=== PATIENT | female | born 1980 | race African-American/Black ===

== ENCOUNTER 2017-06-19 17:12 | Emergency (ER) | payer SELFPAY ==
--- NOTE | 2017-06-19 17:48 | EDPHYS ---
Physician Documentation [facility] Name: Peng Preciado Age: 36 yrs Sex: Female : 1980 Arrival Date: 06/19/2017 Time: 17:15 Bed 20 Private MD: ED Physician Shay Saldaña HPI: 06/19 18:00 This 36 yrs old Black Female presents to ER via Ambulatory with complaints of Insect pm1 Bite. 18:00 The patient presents with an abscess of the lateral aspect of right calf and lateral pm1 aspect of left calf. Description: raised. Onset: The symptoms/episode began/occurred 3 day(s) ago. Possible cause(s): insect sting. Associated signs and symptoms: Associated signs and symptoms: Pertinent negatives: fever. Severity of symptoms: in the emergency department the symptoms have improved. Patient with abscess to right lateral aspect of calf that has improved. Improved with compress and expressing drainage from wound. Left lateral aspect of calf abscess that appeared this AM. No drainage or surrounding redness. Patient suspects possible insect bite. 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 - Social history:: Smoking status: Patient/guardian denies using tobacco. ROS: 18:00 Constitutional: Negative for fever, chills, and weight loss, Eyes: Negative for injury, pm1 pain, redness, and discharge, Neck: Negative for injury, pain, and swelling, Cardiovascular: Negative for chest pain, palpitations, and edema, Respiratory: Negative for shortness of breath, cough, wheezing, and pleuritic chest pain, Abdomen/GI: Negative for abdominal pain, nausea, vomiting, diarrhea, and constipation, Back: Negative for injury and pain, MS/Extremity: Negative for injury and deformity. 18:00 Neuro: Negative for headache, weakness, numbness, tingling, and seizure. 18:00 ENT: Positive for dental pain, Negative for sore throat, difficulty swallowing, difficulty handling secretions. 18:00 Skin: Positive for abscess, of the lateral aspect of right calf and lateral aspect of left calf. Exam: 18:00 Constitutional: This is a well developed, well nourished patient who is awake, alert, pm1 and in no acute distress. Head/Face: Normocephalic, atraumatic. Eyes: Pupils equal round and reactive to light, extra-ocular motions intact. Lids and lashes normal. Conjunctiva and sclera are non-icteric and not injected. Cornea within normal limits. Periorbital areas with no swelling, redness, or edema. 18:00 Neck: Trachea midline, no thyromegaly or masses palpated, and no cervical lymphadenopathy. Supple, full range of motion without nuchal rigidity, or vertebral point tenderness. No Meningismus. Chest/axilla: Normal chest wall appearance and motion. Nontender with no deformity. No lesions are appreciated. Cardiovascular: Regular rate and rhythm with a normal S1 and S2. No gallops, murmurs, or rubs. Normal PMI, no JVD. No pulse deficits. Respiratory: Lungs have equal breath sounds bilaterally, clear to auscultation and percussion. No rales, rhonchi or wheezes noted. No increased work of breathing, no retractions or nasal flaring. Abdomen/GI: Soft, non-tender, with normal bowel sounds. No distension or tympany. No guarding or rebound. No evidence of tenderness throughout. Back: No spinal tenderness. No costovertebral tenderness. Full range of motion. 18:00 ENT: External ear(s): are unremarkable, Ear canal(s): are normal, TM's: are normal, Nose: is normal, Mouth: is normal, Lips: normal, Oral mucosa: normal, Gums: normal with healthy appearance, Posterior pharynx: is normal, Airway: normal, no evidence of obstruction, patent, Dental exam: dental caries, that is moderate, diffusely, gum swelling, not appreciated, missing teeth, diffusely. 18:00 Skin: abscess, that is small, of the lateral aspect of left calf and lateral aspect of right calf, no drainage, fluctuance pointing, or surrounding cellulits, cellulitis, is not appreciated. Vital Signs: 17:18 BP 132 / 88; Pulse 86; Resp 16; Temp 98.4; Pulse Ox 100% on R/A; Weight 90.72 kg; aj Height 5 ft. 9 in. (175.26 cm); Pain 8/10; 17:18 Body Mass Index 29.53 (90.72 kg, 175.26 cm) manfred MDM: 17:27 Patient medically screened. pm1 17:47 Data reviewed: vital signs. Data interpreted: Pulse oximetry: on room air is 100 %. pm1 Interpretation: normal. Counseling: I had a detailed discussion with the patient and/or guardian regarding: the historical points, exam findings, and any diagnostic results supporting the discharge/admit diagnosis, the need for outpatient follow up, to return to the emergency department if symptoms worsen or persist or if there are any questions or concerns that arise at home. 17:49 ED course: patient with right lower dental pain. Patient pending evaluation and pm1 treatment with dentist. Will provide antibiotic with coverage of dental issue and lower extremity abscesses. 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 Exp: lk1 07/11/2019. Lot #: [id number]. } Route: IM; Site: right deltoid; 18:05 Follow up: Response: No adverse reaction lk1 Disposition: 19:14 Co-signature as Attending Physician, Shay Saldaña MD I agree with the assessment and guille plan of care. Disposition: 06/19/17 17:48 Discharged to Home. Impression: Cutaneous abscess of left lower limb, Cutaneous abscess of right lower limb. - Condition is Stable. - Discharge Instructions: Abscess, Dental Pain. - Prescriptions for Clindamycin HCl 300 mg Oral Capsule - take 1 capsule by ORAL route every 6 hours for 10 days; 40 capsule. Tylenol- Codeine #3 300-30 mg Oral Tablet - take 2 tablets by ORAL route every 6 hours As needed; 20 tablet. - Medication Reconciliation Form, Thank You Letter, Antibiotic Education, Prescription Opioid Use form. - Follow up: Emergency Department; When: As needed; Reason: Worsening of condition. Follow up: Private Physician; When: 2 - 3 days; Reason: Wound Recheck, Recheck today's complaints, Continuance of care, Re-evaluation by your physician. - Problem is new. - Symptoms have improved. Signatures: Nova Vargas RN RN aj Anderson, Corey, MD MD cha Kluge, Leah, RN RN lk1 Mickey Worthington, SECURITY TECHNICIAN SECURITY TECHNICIAN pm1
--- NOTE | 2017-06-19 17:48 | ER ---
Nurse's Notes [facility] Name: Peng Preciado Age: 36 yrs Sex: Female : 1980 Arrival Date: 06/19/2017 Time: 17:15 Bed 20 Private MD: Diagnosis: Cutaneous abscess of left lower limb;Cutaneous abscess of right lower limb Presentation: 06/19 17:16 Presenting complaint: Patient states: Abscesses to bilateral lower legs for 3 days. aj Drainage reported to abscess on right lower leg. Redness with no drainage to left lower leg. Transition of care: patient was not received from another setting of care. Onset of symptoms was June 16, 2017. Initial Sepsis Screen: Does the patient meet any 2 criteria? No. Patient's initial sepsis screen is negative. Does the patient have a suspected source of infection? No. Patient's initial sepsis screen is negative. Care prior to arrival: None. 17:16 Method Of Arrival: Ambulatory 17:16 Acuity: SIMONE 4 aj Triage Assessment: 17:18 Bite description: bite. General: Appears in no apparent distress. Behavior is calm, aj cooperative, appropriate for age. Pain: Complains of pain in right ankle and lateral aspect of left calf Pain currently is 8 out of 10 on a pain scale. Neuro: Level of Consciousness is awake, alert, obeys commands, Oriented to person, place, time, situation. Respiratory: Airway is patent Respiratory effort is even, unlabored, Respiratory pattern is regular, symmetrical. Derm: Skin is intact, is healthy with good turgor, Skin is pink, warm \T\ dry. normal. Derm: Abscess located on right ankle and lateral aspect of left calf is dime sized, has purulent drainage, has no drainage. 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 - Social history:: Smoking status: Patient/guardian denies using tobacco. Screenin:10 Abuse screen: Denies threats or abuse. Denies injuries from another. Nutritional lk1 screening: No deficits noted. Tuberculosis screening: No symptoms or risk factors identified. Fall Risk None identified. Assessment: 17:30 General: Appears in no apparent distress. Pain: Complains of pain in right leg and left lk1 leg. Neuro: Level of Consciousness is awake, alert, obeys commands, Oriented to person, place, time, situation. Cardiovascular: Capillary refill is brisk. Respiratory: Airway is patent Respiratory effort is even, unlabored, Respiratory pattern is regular, symmetrical. GI: Abdomen is obese. : No signs and/or symptoms were reported regarding the genitourinary system. EENT: No signs and/or symptoms were reported regarding the EENT system. Derm: Wound noted right calf Wound is open abscess, draining minimally, approximately 1cm, surrounded by dry skin. Musculoskeletal: No signs and/or symptoms reported regarding the musculoskeletal system. Vital Signs: 17:18 BP 132 / 88; Pulse 86; Resp 16; Temp 98.4; Pulse Ox 100% on R/A; Weight 90.72 kg; aj Height 5 ft. 9 in. (175.26 cm); Pain 8/10; 17:18 Body Mass Index 29.53 (90.72 kg, 175.26 cm) aj ED Course: 17:15 Patient arrived in ED. mr 17:18 Triage completed. aj 17:18 Arm band placed on left wrist. Patient placed in an exam room. aj 17:21 Mickey Worthington NP is PHCP. pm1 17:21 Shay Saldaña MD is Attending Physician. pm1 17:51 Anila Stewart, VIRGIE is Primary Nurse. lk1 18:11 Patient has correct armband on for positive identification. Bed in low position. Call lk1 light in reach. 18:11 No provider procedures requiring assistance completed. Patient did not have IV access lk1 during this emergency room visit. 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 Exp: lk1 07/11/2019. Lot #: [id number]. } Route: IM; Site: right deltoid; 18:05 Follow up: Response: No adverse reaction lk1 Outcome: 17:48 Discharge ordered by . pm1 18:11 Discharged to home ambulatory. lk1 18:11 Condition: good 18:11 Discharge instructions given to patient, Instructed on discharge instructions, follow up and referral plans. medication usage, safety practices, wound care, Demonstrated understanding of instructions, follow-up care, medications, wound care, Prescriptions given X 2. 18:13 Patient left the ED. lk1 Signatures: Nova Vargas RN RN aj Rivera, Maria mr Kluge, Leah, RN RN lk1 Mickey Worthington, PROJECT MANAGEMENT ADVISOR PROJECT MANAGEMENT ADVISOR pm1
[2017-06-19] MEDS ORDERED: TETANUS & DIPHTHERIA TOX,ADULT 0.5 ML VIAL ONE (17:54)
[2017-06-19 18:16] VITALS: BP 132/88; TEMP 98.4; O2SAT 100
== END 2017-06-19 18:13 | disposition home or self-care (01) ==
LOC: ER 17:12
DX: L02.415 Cutaneous abscess of right lower limb (principal); I10 Essential (primary) hypertension; Z23 Encounter for immunization
CPT/HCPCS: 90714; 99283

== ENCOUNTER 2017-10-13 01:59 | Emergency (ER) | payer SELFPAY ==
--- NOTE | 2017-10-13 02:26 | EDPHYS ---
Physician Documentation [facility] Name: Peng Preciado Age: 37 yrs Sex: Female : 1980 Arrival Date: 10/13/2017 Time: 02:11 Bed 2 Private MD: ED Physician Nasim Lipscomb HPI: 10/13 02:20 This 37 yrs old Black Female presents to ER via EMS with complaints of UTI. gs 02:20 The patient presents with urinary symptoms, dysuria. Onset: The symptoms/episode gs began/occurred suddenly, 1 week(s) ago. Modifying factors: The symptoms are alleviated by nothing, the symptoms are aggravated by nothing. Associated signs and symptoms: Pertinent negatives: fever. Severity of symptoms: At their worst the symptoms were moderate, in the emergency department the symptoms are unchanged. The patient has experienced similar episodes in the past, a few times. 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 - Social history:: Smoking status: Patient/guardian denies using tobacco. - Ebola Screening: : No symptoms or risks identified at this time. ROS: 02:20 All other systems are negative. gs Exam: 02:20 ENT: Nares patent. No nasal discharge, no septal abnormalities noted. Tympanic gs membranes are normal and external auditory canals are clear. Oropharynx with no redness, swelling, or masses, exudates, or evidence of obstruction, uvula midline. Mucous membranes moist. Cardiovascular: Regular rate and rhythm with a normal S1 and S2. No gallops, murmurs, or rubs. Normal PMI, no JVD. No pulse deficits. Respiratory: Lungs have equal breath sounds bilaterally, clear to auscultation and percussion. No rales, rhonchi or wheezes noted. No increased work of breathing, no retractions or nasal flaring. Skin: Warm, dry with normal turgor. Normal color with no rashes, no lesions, and no evidence of cellulitis. MS/ Extremity: Pulses equal, no cyanosis. Neurovascular intact. Full, normal range of motion. Neuro: Awake and alert, GCS 15, oriented to person, place, time, and situation. Cranial nerves II-XII grossly intact. Motor strength 5/5 in all extremities. Sensory grossly intact. Cerebellar exam normal. Normal gait. 02:20 Constitutional: The patient appears alert, awake. 02:20 Abdomen/GI: Palpation: mild abdominal tenderness, in the suprapubic area, rebound tenderness, is not appreciated. Vital Signs: 02:13 BP 154 / 133; Pulse 75; Resp 18; Temp 98.1(O); Pulse Ox 96% on R/A; Weight 81.65 kg ak1 (R); Height 5 ft. 8 in. (172.72 cm) (R); Pain 8/10; 02:13 Body Mass Index 27.37 (81.65 kg, 172.72 cm) ak1 MDM: 02:20 Patient medically screened. 02:20 Differential diagnosis: nonspecific abdominal pain, urinary tract infection. Data reviewed: vital signs, nurses notes. 10/13 02:14 Order name: Urine Microscopic Only 10/13 02:24 Order name: Urine Dipstick--Ancillary (enter results) ms 10/13 02:14 Order name: Urine Dipstick-Ancillary (obtain specimen); Complete Time: 02:18 10/13 02:24 Order name: Urine --Ancillary (enter results) ms Administered Medications: No medications were administered Disposition: 10/13/17 02:26 Discharged to Home. Impression: Cystitis. - Condition is Stable. - Discharge Instructions: Urinary Tract Infection, Adult. - Prescriptions for Keflex 500 mg Oral Capsule - take 1 capsule by ORAL route every 12 hours for 7 days; 14 capsule. - Medication Reconciliation Form, Thank You Letter, Antibiotic Education, Prescription Opioid Use form. - Follow up: Private Physician; When: 2 - 3 days; Reason: Re-evaluation by your physician. Signatures: Dispatcher [employer] Vanita Garnica RN RN ak1 Nasim Lipscomb MD MD Corrections: (The following items were deleted from the chart) 02:33 02:26 10/13/2017 02:26 Discharged to Home. Impression: Cystitis. Condition is Stable. ak1 Forms are Medication Reconciliation Form, Thank You Letter, Antibiotic Education, Prescription Opioid Use. Follow up: Private Physician; When: 2 - 3 days; Reason: Re-evaluation by your physician. gs
--- NOTE | 2017-10-13 02:26 | ER ---
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 pt stated she ak1 is taking OTC AZO with no relief. pt came via [facility] with her daughter and choose to register to be seen as well. Transition of care: patient was not received from another setting of care. Onset of symptoms is unknown. Risk Assessment: Do you want to hurt yourself or someone else? Patient reports no desire to harm self or others. Initial Sepsis Screen: Does the patient meet any 2 criteria? No. Patient's initial sepsis screen is negative. Does the patient have a suspected source of infection? No. Patient's initial sepsis screen is negative. Care prior to arrival: None. 02:14 Acuity: SIMONE 4 ak1 02:14 Method Of Arrival: EMS: [facility] ak1 Triage Assessment: 02:16 General: Appears in no apparent distress. Behavior is calm, cooperative. Pain: ak1 Complains of pain in groin. EENT:. Neuro: No deficits noted. Cardiovascular: No deficits noted. Respiratory: No deficits noted. GI: No signs and/or symptoms were reported involving the gastrointestinal system. 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 Derm: No signs and/or symptoms reported regarding the dermatologic system. Musculoskeletal: No signs and/or symptoms reported regarding the musculoskeletal system. 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 - Social history:: Smoking status: Patient/guardian denies using tobacco. - Ebola Screening: : No symptoms or risks identified at this time. Screenin:17 Abuse screen: Denies threats or abuse. Denies injuries from another. Nutritional ak1 screening: No deficits noted. Tuberculosis screening: No symptoms or risk factors identified. Fall Risk None identified. Assessment: 02:17 Reassessment: Patient appears in no apparent distress at this time. No changes from ak1 previously documented assessment. see triage assessment. Vital Signs: 02:13 BP 154 / 133; Pulse 75; Resp 18; Temp 98.1(O); Pulse Ox 96% on R/A; Weight 81.65 kg ak1 (R); Height 5 ft. 8 in. (172.72 cm) (R); Pain 8/10; 02:13 Body Mass Index 27.37 (81.65 kg, 172.72 cm) ak1 ED Course: 02:11 Patient arrived in ED. ak1 02:12 Vanita Malik, RN is Primary Nurse. ak1 02:13 Arm band placed on Patient placed in an exam room, on a stretcher, on pulse oximetry. ak1 02:14 Nasim Lipscomb MD is Attending Physician. 02:15 Triage completed. ak1 02:17 Patient has correct armband on for positive identification. Bed in low position. Call ak1 light in reach. Side rails up X 1. Pulse ox on. NIBP on. 02:17 Urine collected: clean catch specimen. ak1 02:32 No provider procedures requiring assistance completed. Patient did not have IV access ak during this emergency room visit. Administered Medications: No medications were administered Outcome: 02:26 Discharge ordered by . 02:32 Discharged to home ambulatory. ak1 02:32 Condition: stable 02:32 Discharge instructions given to patient, Instructed on discharge instructions, follow up and referral plans. no drinking with medication, no driving heavy equipment, medication usage, safe sex practices, control, Demonstrated understanding of instructions, follow-up care, medications, Prescriptions given X 1. 02:33 Patient left the ED. ak1 Addendum: 10/18/2017 11:21 Addendum: Culture Results: Positive urine culture. Phone call Attempt #1 at [phone]. a a5 12:47 Addendum: Culture Results: Prescription called-in to pharmacy of choice. to [facility] in [address] per pt's request. Signatures: Mesha Santiago RN RN aa5 Vanita Malik, VIRGIE RN ak1 Nasim Lipscomb MD MD
[2017-10-13 02:37] LABS: Urine Blood NEGATIVE (NEG); Urine Glucose TRACE (NEG); Urine Protein 1+ (NEG)
[2017-10-13 02:41] VITALS: BP 154/133; TEMP 98.1; O2SAT 96
[2017-10-13 02:44] LABS: Urine Bacteria >50 /HPF (<20); Urine Culture Reflex Order REFLEXED; Urine RBC NONE SEEN /HPF (NONE SEEN)
[2017-10-13 02:45] LABS: Calcium Oxalate Crystals- Ur MANY (NONE SEEN); Urine Mucus MOD /HPF (NONE SEEN)
== END 2017-10-13 02:33 | disposition home or self-care (01) ==
LOC: ER 01:59
DX: N30.90 Cystitis, unspecified without hematuria (principal); I10 Essential (primary) hypertension
CPT/HCPCS: 81003; 81015; 81025; 87077; 87086; 87088; 87186; 99284

== ENCOUNTER 2017-12-07 13:16 | Emergency (ER) | payer SELFPAY ==
[2017-12-07 14:14] LABS: Urine Blood NEGATIVE (NEG); Urine Glucose NEGATIVE (NEG); Urine Protein NEGATIVE (NEG)
[2017-12-07 15:15] LABS: Absolute Monocytes 0.4 K/uL (0.1-1.3); Absolute Neutrophil 3.1 K/uL (1.8-8.0); Eosinophils % 2.5 % (0-4.4); Hematocrit 38.7 % (36.0-45.0); Lymphocytes % 35.1 % (15.3-44.8); MCH 30.4 pg (27.0-35.0); MCV 91.6 fL (80-100); Monocytes % 7.7 % (3.3-12.3); RBC Red Blood Cell Count 4.22 M/uL (3.86-4.86)
[2017-12-07 15:32] LABS: ALT/SGPT 18 U/L (12-78); AST/SGOT 16 U/L (15-37); Albumin 3.6 g/dL (3.4-5.0); Alkaline Phosphatase 99 U/L (45-117); BUN Blood Urea Nitrogen 7 mg/dL (7-18); Bicarbonate 26 mmol/L (21-32); Bilirubin Direct < 0.1 mg/dL (0-0.2); Bilirubin Total 0.2 mg/dL (0.2-1.0); Glucose Level 86 mg/dL (74-106); Lipase 71 U/L (73-393); Potassium 4.2 mmol/L (3.5-5.1); Protein, Total 8.1 g/dL (6.4-8.2); Sodium Level 138 mmol/L (136-145)
--- NOTE | 2017-12-07 16:24 | RAD REPORT ---
EXAM DESCRIPTION: CTAbdomen Pelvis W Contrast - 12/07/2017 4:14 pm CLINICAL HISTORY: Abdominal pain. ABD PAIN COMPARISON: <Comparisons> TECHNIQUE: Biphasic CT imaging of the abdomen and pelvis was performed with 100 ml non-ionic IV cont rast. All CT scans are performed using dose optimization technique as appropriate and may include automated exposure control or mA/KV adjustment according to patient size. FINDINGS: The lung bases are clear. The liver, spleen, pancreas, adrenal glands are within normal limits. Stones are present in both kidn eys without obstructive uropathy. The largest stone is in the superior left calyx measuring 6 mm. No bowel obstruction, free air, free fluid or abscess. Prominent stool is present in the colon. The a ppendix is normal. No evidence of significant lymphadenopathy. No suspicious bony findings. IMPRESSION: Bilateral nephrolithiasis without hydronephrosis. Prominent stool retained in the colon.
--- NOTE | 2017-12-07 16:26 | EDPHYS ---
Physician Documentation [facility] Name: Peng Preciado Age: 37 yrs Sex: Female : 1980 Arrival Date: 12/07/2017 Time: 13:21 Bed 25 Private MD: Joanne Hinson ED Physician Jesus Manuel Caceres HPI: 12/07 14:15 This 37 yrs old Black Female presents to ER via Ambulatory with complaints of Flank jmm Pain. 14:15 The patient complains of pain in the right flank. The pain radiates to the abdomen. jmm Onset: The symptoms/episode began/occurred gradually, 3 day(s) ago. Modifying factors: The symptoms are alleviated by nothing. the symptoms are aggravated by nothing. Associated signs and symptoms: Pertinent negatives: fever, nausea. This is a 37 year old female with a history of crohns disease that presents to the ED with right flank pain radiating to the abdomen for the past 3 days Patient states she was recently diagnosed with a uti which she took a course of abx with much relief. Symptoms worsened over the past 2 to 3 days. . Historical: - Allergies: 13:31 NKA; la1 - PMHx: 13:31 GERD; Crohn's; Hypertension; Sleep Apnea; la1 - Immunization history:: Adult Immunizations up to date. - Social history:: Smoking status: Patient/guardian denies using tobacco. - Ebola Screening: : No symptoms or risks identified at this time. - : The history from the nurse's notes was reviewed. ROS: 14:15 Constitutional: Negative for fever, chills, and weight loss, Eyes: Negative for injury, jmm pain, redness, and discharge, Cardiovascular: Negative for chest pain, palpitations, and edema, Respiratory: Negative for shortness of breath, cough, wheezing, and pleuritic chest pain. 14:15 MS/Extremity: Negative for injury and deformity, Skin: Negative for injury, rash, and jmm discoloration, Neuro: Negative for headache, weakness, numbness, tingling, and seizure, Psych: Negative for depression, anxiety, suicide ideation, homicidal ideation, and hallucinations. 14:15 Abdomen/GI: Positive for abdominal pain. 14:15 Back: Positive for flank pain, on the right. 14:15 All other systems are negative. Exam: 14:15 Head/Face: atraumatic. Chest/axilla: Normal chest wall appearance and motion. [facility] Cardiovascular: Regular rate and rhythm. No edema appreciated Respiratory: Normal respirations, no respiratory distress appreciated 14:15 Constitutional: The patient appears in no acute distress, alert, awake. 14:15 Abdomen/GI: Inspection: abdomen appears normal, Bowel sounds: normal, Palpation: soft, mild abdominal tenderness, in the right upper quadrant and right lower quadrant. 14:15 Back: ROM is normal. 14:15 Musculoskeletal/extremity: ROM: intact in all extremities. 14:15 Skin: Appearance: Color: normal in color. 14:15 Neuro: Orientation: is normal, Mentation: is normal, Memory: is normal. 14:15 Psych: Behavior/mood is pleasant, cooperative. Vital Signs: 13:31 BP 141 / 86; Pulse 84; Resp 16; Temp 97.8; Pulse Ox 98% on R/A; Weight 104.33 kg; la1 14:30 BP 138 / 78; Pulse 72; Resp 17; Pulse Ox 98% on R/A; kr2 16:34 BP 142 / 84; Pulse 80; Resp 17; Pulse Ox 99% on R/A; kr2 MDM: 14:15 Patient medically screened. [facility] 16:25 Data reviewed: vital signs, nurses notes. Counseling: I had a detailed discussion with [facility] the patient and/or guardian regarding: the historical points, exam findings, and any diagnostic results supporting the discharge/admit diagnosis, radiology results, the need for outpatient follow up, to return to the emergency department if symptoms worsen or persist or if there are any questions or concerns that arise at home. 16:25 ED course: Ct imaging unremarkable, labs are not concerning for an acute intraabdominal [facility] process. Patient advised to follow up with her GI for further evaluation. Patient understood and agrees with the plan of care. . 12/07 14:11 Order name: Urine Dipstick--Ancillary (enter results); Complete Time: 14:28 12/07 14:11 Order name: Urine --Ancillary (enter results); Complete Time: 14:28 12/07 14:28 Order name: Basic Metabolic Panel; Complete Time: 16:[address] [facility] 12/07 14:28 Order name: CBC with Diff; Complete Time: 15:[address] [facility] 12/07 14:28 Order name: Creatinine for Radiology; Complete Time: 16:[address] [facility] 12/07 14:28 Order name: Hepatic Function; Complete Time: 16:[address] [facility] 12/07 14:28 Order name: Lipase; Complete Time: 16:[address] [facility] 12/07 14:28 Order name: IV Saline Lock; Complete Time: 15:[address] [facility] 12/07 14:28 Order name: Labs collected and sent; Complete Time: 15:[address] [facility] 12/07 15:30 Order name: CT Abd/Pelvis - W/Contrast; Complete Time: 16:[address] [facility] Administered Medications: No medications were administered Disposition: 12/07/17 16:26 Discharged to Home. Impression: Urinary tract infection, site not specified, Unspecified abdominal pain. - Condition is Stable. - Discharge Instructions: Abdominal Pain, Adult, Urinary Tract Infection, Adult. - Prescriptions for Cipro 500 mg Oral Tablet - take 1 tablet by ORAL route every 12 hours for 7 days; 14 tablet. - Medication Reconciliation Form, Thank You Letter, Antibiotic Education, Prescription Opioid Use form. - Follow up: Joanne Hinson MD; When: 2 - 3 days; Reason: Recheck today's complaints, Continuance of care, Re-evaluation by your physician. Signatures: Dispatcher [employer] EDMS Erick Camargo PA PA jmm Attema, Lee RN RN la1 Kath Alcantar RN RN kr2 Corrections: (The following items were deleted from the chart) 16:51 16:26 12/07/2017 16:26 Discharged to Home. Impression: Urinary tract infection, site kr2 not specified; Unspecified abdominal pain. Condition is Stable. Forms are Medication Reconciliation Form, Thank You Letter, Antibiotic Education, Prescription Opioid Use. Follow up: Joanne Hinson; When: 2 - 3 days; Reason: Recheck today's complaints, Continuance of care, Re-evaluation by your physician. [facility] 21: 21:26 The history from the nurse's notes was reviewed. lindsay montoya
--- NOTE | 2017-12-07 16:26 | ER ---
Nurse's Notes [facility] Name: Peng Preciado Age: 37 yrs Sex: Female : 1980 Arrival Date: 12/07/2017 Time: 13:21 Bed 25 Private MD: Joanne Hinson Diagnosis: Urinary tract infection, site not specified;Unspecified abdominal pain Presentation: 12/07 13:30 Presenting complaint: Patient states: right flank/abd pain for 2-3 days, pt states "I la1 think I have a kidney infection". Transition of care: patient was not received from another setting of care. Onset of symptoms was December 07, 2017. Risk Assessment: Do you want to hurt yourself or someone else? Patient reports no desire to harm self or others. Initial Sepsis Screen: Does the patient meet any 2 criteria? No. Patient's initial sepsis screen is negative. Does the patient have a suspected source of infection? No. Patient's initial sepsis screen is negative. Care prior to arrival: None. 13:30 Method Of Arrival: Ambulatory la1 13:30 Acuity: SIMONE 3 la1 Historical: - Allergies: 13:31 NKA; la1 - PMHx: 13:31 GERD; Crohn's; Hypertension; Sleep Apnea; la1 - Immunization history:: Adult Immunizations up to date. - Social history:: Smoking status: Patient/guardian denies using tobacco. - Ebola Screening: : No symptoms or risks identified at this time. - : The history from the nurse's notes was reviewed. Screenin:52 Abuse screen: Denies threats or abuse. Denies injuries from another. Nutritional kr2 screening: No deficits noted. Tuberculosis screening: No symptoms or risk factors identified. Fall Risk None identified. Assessment: 13:51 General: Appears in no apparent distress. comfortable, well groomed, Behavior is calm, kr2 cooperative, appropriate for age. Pain: Complains of pain in right flank Pain currently is 3 out of 10 on a pain scale. Quality of pain is described as sharp, Is continuous. Neuro: Level of Consciousness is awake, alert, obeys commands, Oriented to person, place, time, situation. Cardiovascular: Capillary refill < 3 seconds in bilateral fingers Patient's skin is warm and dry. Respiratory: Airway is patent Respiratory effort is even, unlabored, Respiratory pattern is regular, symmetrical. GI: Abdomen is round non-distended, Bowel sounds present X 4 quads. : Reports urinary frequency. EENT: Oral mucosa is moist. Derm: Skin is intact, is healthy with good turgor, Skin is pink, warm \\T\\ dry. Musculoskeletal: Circulation, motion, and sensation intact. 15:30 Reassessment: Patient appears in no apparent distress at this time. Patient and/or kr2 family updated on plan of care and expected duration. Pain level reassessed. Patient is alert, oriented x 3, equal unlabored respirations, skin warm/dry/pink. 16:34 Reassessment: Patient appears in no apparent distress at this time. Patient and/or kr2 family updated on plan of care and expected duration. Pain level reassessed. Patient is alert, oriented x 3, equal unlabored respirations, skin warm/dry/pink. Vital Signs: 13:31 BP 141 / 86; Pulse 84; Resp 16; Temp 97.8; Pulse Ox 98% on R/A; Weight 104.33 kg; la1 14:30 BP 138 / 78; Pulse 72; Resp 17; Pulse Ox 98% on R/A; kr2 16:34 BP 142 / 84; Pulse 80; Resp 17; Pulse Ox 99% on R/A; kr2 ED Course: 13:21 Patient arrived in ED. sb2 13:22 Joanne Hinson MD is Private Physician. sb2 13:31 Triage completed. la1 13:32 Arm band placed on left wrist. la1 13:44 [facility] jmm 13:44 Jesus Manuel Caceres MD is Attending Physician. jmm 13:53 Patient has correct armband on for positive identification. Bed in low position. Call kr2 light in reach. Side rails up X 1. Pulse ox on. NIBP on. 14:08 Urine collected: clean catch specimen, clear. kr2 14:30 Missed attempt(s): 24 gauge in right wrist. Bleeding controlled, band aid applied, jp3 catheter tip intact. 16:14 CT completed. Patient tolerated procedure well. Patient moved back from CT. bq 16:15 CT Abd/Pelvis - W/Contrast In Process Unspecified. EDMS 16:26 Joanne Hinson MD is Referral Physician. jmm 16:35 No provider procedures requiring assistance completed. IV discontinued, intact, kr2 bleeding controlled, No redness/swelling at site. Pressure dressing applied. Administered Medications: No medications were administered Outcome: 16:26 Discharge ordered by MD. lindsay 16:36 Discharged to home ambulatory, with family. kr2 16:36 Condition: good 16:36 Discharge instructions given to patient, Instructed on discharge instructions, follow up and referral plans. Demonstrated understanding of instructions, follow-up care, Prescriptions given X 1. 16:51 Patient left the ED. kr2 Signatures: Dispatcher [employer] EDMS Erick Camargo PA PA jmm Quilty, Betty bq Attema, Lee, RN RN la1 Kath Alcantar RN RN kr2 Xi Jung2 Riaz Lacy jp3 Corrections: (The following items were deleted from the chart) 21:26 21:26 The history from the nurse's notes was reviewed. lindsay montoya
[2017-12-07 16:55] VITALS: TEMP 97.8
[2017-12-07 16:57] VITALS: BP 142/84; O2SAT 99
== END 2017-12-07 16:51 | disposition home or self-care (01) ==
LOC: ER 13:16
DX: N39.0 Urinary tract infection, site not specified (principal); I10 Essential (primary) hypertension
CPT/HCPCS: 36415; 74177; 80048; 80076; 81003; 81025; 83690; 85025; 99284; Q9967

== ENCOUNTER 2018-09-10 13:38 | Emergency (ER) | payer SELFPAY ==
[2018-09-10 15:08] LABS: Urine Blood NEGATIVE (NEG); Urine Glucose NEGATIVE (NEG); Urine Protein 2+ (NEG); Urine pH 7.5 (5.0-7.0)
[2018-09-10 15:25] LABS: Urine Bacteria >50 /HPF (<20); Urine Culture Reflex Order NOT NEEDED; Urine RBC <5 /HPF (NONE SEEN)
--- NOTE | 2018-09-10 15:45 | ER ---
Nurse's Notes [facility] Name: Peng Preciado Age: 38 yrs Sex: Female : 1980 Arrival Date: 09/10/2018 Time: 13:40 Bed 18 Private MD: Diagnosis: Urinary tract infection, site not specified Presentation: 09/10 14:21 Presenting complaint: Patient states: Burning w/ urination, lower abdominal pain, low ph back pain and blood in urine x approx 1 week, also reports nausea and diarrhea, denies vomiting or chills. Transition of care: patient was not received from another setting of care. Onset of symptoms was September 10, 2018. Risk Assessment: Do you want to hurt yourself or someone else? Patient reports no desire to harm self or others. Initial Sepsis Screen: Does the patient meet any 2 criteria? No. Patient's initial sepsis screen is negative. Does the patient have a suspected source of infection? Yes: Dysuria/Frequency/Urgency/UTI. Care prior to arrival: None. 14:21 Method Of Arrival: Ambulatory ph 14:21 Acuity: SIMONE 3 ph Triage Assessment: 16:06 General: Appears in no apparent distress. Behavior is calm, cooperative. Pain: iw Complains of pain in suprapubic area. 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 - Social history:: Smoking status: Patient/guardian denies using tobacco. - Ebola Screening: : Patient negative for fever greater than or equal to 101.5 degrees Fahrenheit, and additional compatible Ebola Virus Disease symptoms Patient denies exposure to infectious person Patient denies travel to an Ebola-affected area in the 21 days before illness onset No symptoms or risks identified at this time. Screenin:05 Abuse screen: Denies threats or abuse. Denies injuries from another. Nutritional iw screening: No deficits noted. Tuberculosis screening: No symptoms or risk factors identified. Fall Risk None identified. Assessment: 16:05 Reassessment: Patient appears in no apparent distress at this time. Patient and/or iw family updated on plan of care and expected duration. Pain level reassessed. Patient is alert, oriented x 3, equal unlabored respirations, skin warm/dry/pink. Patient states symptoms have improved. Vital Signs: 14:23 BP 127 / 103; Pulse 91; Resp 18; Temp 98.0(TE); Pulse Ox 97% on R/A; Weight 99.79 kg; ph Height 5 ft. 9 in. (175.26 cm); 14:23 Body Mass Index 32.49 (99.79 kg, 175.26 cm) ph ED Course: 13:40 Patient arrived in ED. as 14:13 Floyd Avila, RN is Primary Nurse. ae4 14:22 Triage completed. ph 14:23 Arm band placed on Patient placed in an exam room. ph 14:35 Urine collected: clean catch specimen, clear, Amount Voided: 180mL. 5 14:36 Patient has correct armband on for positive identification. Bed in low position. Call 5 light in reach. Pulse ox on. NIBP on. 14:49 Isabell Lunsford FNP-C is [facility]. snw 14:49 Ramiro Serrano MD is Attending Physician. snw 16:05 No provider procedures requiring assistance completed. Patient did not have IV access iw during this emergency room visit. Administered Medications: 16:05 Drug: Rocephin (cefTRIAXone) 1 grams Route: IM; Site: right ventrogluteal; iw Outcome: 15:45 Discharge ordered by . snw 16:05 Discharged to home ambulatory, with family. iw 16:05 Condition: good 16:05 Discharge instructions given to patient, Instructed on discharge instructions, follow up and referral plans. medication usage, Demonstrated understanding of instructions, follow-up care, medications, Prescriptions given X 1. 16:06 Patient left the ED. iw Addendum: 09/13/2018 08:33 Addendum: Culture Results: Positive urine culture. No further action required. Bacteria i w sensitive to prescribed antibiotic. Signatures: Isabell Lunsford FNP-C FNP-Dena Flores Irene, RN RN Yesika Darden RN RN ph Martinez, Maria [facility] Floyd Avila, RN RN [facility]
--- NOTE | 2018-09-10 15:45 | EDPHYS ---
Physician Documentation [facility] Name: Peng Preciado Age: 38 yrs Sex: Female : 1980 Arrival Date: 09/10/2018 Time: 13:40 Bed 18 Private MD: ED Physician Ramiro Serrano HPI: 09/10 15:49 This 38 yrs old Black Female presents to ER via Ambulatory with complaints of Urinary snw Problem, Flank Pain. 15:49 Onset: The symptoms/episode began/occurred gradually, 1 week(s) ago, and became snw persistent. Associated signs and symptoms: Pertinent positives: dysuria. Modifying factors: The patient symptoms are alleviated by nothing. The patient has experienced similar episodes in the past. It is unknown whether or not the patient has recently seen a physician. 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 - Social history:: Smoking status: Patient/guardian denies using tobacco. - Ebola Screening: : Patient negative for fever greater than or equal to 101.5 degrees Fahrenheit, and additional compatible Ebola Virus Disease symptoms Patient denies exposure to infectious person Patient denies travel to an Ebola-affected area in the 21 days before illness onset No symptoms or risks identified at this time. ROS: 15:49 Constitutional: Negative for fever, chills, and weight loss, Eyes: Negative for injury, snw pain, redness, and discharge, ENT: Negative for injury, pain, and discharge, Neck: Negative for injury, pain, and swelling, Cardiovascular: Negative for chest pain, palpitations, and edema, Respiratory: Negative for shortness of breath, cough, wheezing, and pleuritic chest pain, Abdomen/GI: Positive for abdominal pain, nausea, denies vomiting, diarrhea, and constipation, Back: Negative for injury and pain, : Negative for injury, bleeding, discharge, and swelling, MS/Extremity: Negative for injury and deformity, Skin: Negative for injury, rash, and discoloration, Neuro: Negative for headache, weakness, numbness, tingling, and seizure. Exam: 15:47 Constitutional: This is a well developed, well nourished patient who is awake, alert, snw and in no acute distress. Head/Face: Normocephalic, atraumatic. Eyes: Pupils equal round and reactive to light, extra-ocular motions intact. Lids and lashes normal. Conjunctiva and sclera are non-icteric and not injected. Cornea within normal limits. Periorbital areas with no swelling, redness, or edema. ENT: Nares patent. No nasal discharge, no septal abnormalities noted. Tympanic membranes are normal and external auditory canals are clear. Oropharynx with no redness, swelling, or masses, exudates, or evidence of obstruction, uvula midline. Mucous membranes moist. Neck: Trachea midline, no thyromegaly or masses palpated, and no cervical lymphadenopathy. Supple, full range of motion without nuchal rigidity, or vertebral point tenderness. No Meningismus. Chest/axilla: Normal chest wall appearance and motion. Nontender with no deformity. No lesions are appreciated. Cardiovascular: Regular rate and rhythm with a normal S1 and S2. No gallops, murmurs, or rubs. Normal PMI, no JVD. No pulse deficits. Respiratory: Lungs have equal breath sounds bilaterally, clear to auscultation and percussion. No rales, rhonchi or wheezes noted. No increased work of breathing, no retractions or nasal flaring. Back: No spinal tenderness. No costovertebral tenderness. Full range of motion. Skin: Warm, dry with normal turgor. Normal color with no rashes, no lesions, and no evidence of cellulitis. MS/ Extremity: Pulses equal, no cyanosis. Neurovascular intact. Full, normal range of motion. Neuro: Awake and alert, GCS 15, oriented to person, place, time, and situation. Cranial nerves II-XII grossly intact. Motor strength 5/5 in all extremities. Sensory grossly intact. Cerebellar exam normal. Normal gait. Psych: Awake, alert, with orientation to person, place and time. Behavior, mood, and affect are within normal limits. 15:47 Abdomen/GI: Inspection: abdomen appears normal, Bowel sounds: normal, Palpation: mild abdominal tenderness, in the left lower quadrant, no appreciated organomegaly. Vital Signs: 14:23 BP 127 / 103; Pulse 91; Resp 18; Temp 98.0(TE); Pulse Ox 97% on R/A; Weight 99.79 kg; ph Height 5 ft. 9 in. (175.26 cm); 14:23 Body Mass Index 32.49 (99.79 kg, 175.26 cm) ph MDM: 15:15 Patient medically screened. snw 15:48 Data reviewed: vital signs, nurses notes. Data interpreted: Pulse oximetry: on room air snw is 97 %. Interpretation: normal. Counseling: I had a detailed discussion with the patient and/or guardian regarding: the historical points, exam findings, and any diagnostic results supporting the discharge/admit diagnosis, the presence of at least one elevated blood pressure reading (>120/80) during this emergency department visit, lab results, the need for outpatient follow up, to return to the emergency department if symptoms worsen or persist or if there are any questions or concerns that arise at home. Special discussion: Based on the patient's Hx, exam, and Dx evaluation, there is no indication for emergent surgery or inpatient Tx. It is understood by the patient/guardian that if the Sx's persist or worsen they need to return immediately for re-evaluation. Based on the history and exam findings, there is no indication for further emergent testing or inpatient evaluation. I discussed with the patient/guardian the need to see the primary care provider for further evaluation of the symptoms. 09/10 14:48 Order name: Urine Culture snw 09/10 14:48 Order name: Urine Microscopic Only; Complete Time: 15:26 snw 09/10 14:48 Order name: Urine Test (obtain specimen); Complete Time: 14:51 snw 09/10 14:55 Order name: Urine Dipstick--Ancillary (enter results); Complete Time: 15:09 ag 09/10 14:55 Order name: Urine --Ancillary (enter results); Complete Time: 15:09 ag 09/10 14:48 Order name: Urine Dipstick-Ancillary (obtain specimen); Complete Time: 14:51 snw Administered Medications: 16:05 Drug: Rocephin (cefTRIAXone) 1 grams Route: IM; Site: right ventrogluteal; iw Disposition: 19:03 Co-signature as Attending Physician, Ramiro Serrano MD I agree with the assessment and kdr plan of care. Disposition: 09/10/18 15:45 Discharged to Home. Impression: Urinary tract infection, site not specified. - Condition is Stable. - Discharge Instructions: Hypertension, Urinary Tract Infection, Adult, Rehydration, Adult. - Prescriptions for Augmentin 875- 125 mg Oral Tablet - take 1 tablet by ORAL route every 12 hours for 10 days; 20 tablet. - Medication Reconciliation Form, Thank You Letter, Antibiotic Education, Prescription Opioid Use form. - Follow up: Private Physician; When: 2 - 3 days; Reason: Recheck today's complaints, Continuance of care, Re-evaluation by your physician. Follow up: Emergency Department; When: As needed; Reason: Worsening of condition. Signatures: Dispatcher [employer] EDMS Ramiro Serrano MD MD [facility] Isabell Lunsford, POT LINER-C POT LINER-[facility] Hollie Prescott, RN RN iw Yesika Darden RN RN ph Corrections: (The following items were deleted from the chart) 16:06 15:45 09/10/2018 15:45 Discharged to Home. Impression: Urinary tract infection, site iw not specified. Condition is Stable. Forms are Medication Reconciliation Form, Thank You Letter, Antibiotic Education, Prescription Opioid Use. Follow up: Private Physician; When: 2 - 3 days; Reason: Recheck today's complaints, Continuance of care, Re-evaluation by your physician. Follow up: Emergency Department; When: As needed; Reason: Worsening of condition. snw
[2018-09-10] MEDS ORDERED: LIDOCAINE 1% MPF 5 ML VIAL ONE (16:12)
[2018-09-10] MEDS ORDERED: CEFTRIAXONE 1000 MG/VIAL ONE (16:13)
[2018-09-10 16:41] VITALS: BP 127/103; TEMP 98; O2SAT 97
== END 2018-09-10 16:06 | disposition home or self-care (01) ==
LOC: ER 13:38
DX: N39.0 Urinary tract infection, site not specified (principal); I10 Essential (primary) hypertension
CPT/HCPCS: 81003; 81015; 81025; 87077; 87086; 87088; 87186; 96372; 99284

== ENCOUNTER 2018-11-06 15:43 | Emergency (ER) | payer OTHER, SELFPAY ==
[2018-11-06 18:53] LABS: Urine Blood NEGATIVE (NEG); Urine Glucose NEGATIVE (NEG); Urine Protein TRACE (NEG); Urine pH 6.5 (5.0-7.0)
[2018-11-06 19:03] LABS: Absolute Lymphocytes (CBC) 1.6 K/uL (0.7-4.9); Basophils % 0.8 % (0-1.3); Hematocrit 37.8 % (36.0-45.0); Lymphocytes % 18.7 % (15.3-44.8); MPV 9.8 fL (7.6-11.3); RBC Red Blood Cell Count 4.18 M/uL (3.86-4.86)
[2018-11-06 19:16] LABS: ALT/SGPT 19 U/L (12-78); AST/SGOT 20 U/L (15-37); Albumin 3.6 g/dL (3.4-5.0); Alkaline Phosphatase 103 U/L (45-117); BUN Blood Urea Nitrogen 10 mg/dL (7-18); Bicarbonate 25 mmol/L (21-32); Bilirubin Direct < 0.1 mg/dL (0-0.2); Bilirubin Total 0.3 mg/dL (0.2-1.0); Glucose Level 77 mg/dL (74-106); Lipase 56 U/L (73-393); Protein, Total 8.2 g/dL (6.4-8.2); Sodium Level 141 mmol/L (136-145)
--- NOTE | 2018-11-06 19:55 | RAD REPORT ---
EXAM DESCRIPTION: US - Transvaginal Study Probe - 11/06/2018 7:42 pm CLINICAL HISTORY: Pelvic pain COMPARISON: 2016 FINDINGS: The uterus is retroverted and measures 8 x 5 x 5cm. A 1 centimeter intramural fibroid is p resent within the body. B endometrial stripe measures 7 millimeters The ovaries are normal in size and echotexture. 16 millimeter left ovarian follicle 2 centimeter right paraovarian cyst. Left adnexa unremarkable No significant free fluid is seen. IMPRESSION: 2 centimeter right paraovarian cyst Small uterine fibroid
--- NOTE | 2018-11-06 21:22 | ER ---
Nurse's Notes [facility] Name: Peng Preciado Age: 38 yrs Sex: Female : 1980 Arrival Date: 11/06/2018 Time: 15:47 Bed 11 Private MD: Diagnosis: Abdominal and pelvic pain Presentation: 11/06 15:56 Presenting complaint: Patient states: Pain with urination and body aches for the past 4 aj1 days. Transition of care: patient was not received from another setting of care. Onset of symptoms was November 2018. Risk Assessment: Do you want to hurt yourself or someone else? Patient reports no desire to harm self or others. Risk Assessment: Do you want to hurt yourself or someone else?. Initial Sepsis Screen: Does the patient meet any 2 criteria? HR > 90 bpm. No. Patient's initial sepsis screen is negative. Does the patient have a suspected source of infection? Yes: Dysuria/Frequency/Urgency/UTI. Care prior to arrival: None. 15:56 Method Of Arrival: Ambulatory aj 15:56 Acuity: SIMONE 4 aj1 Triage Assessment: 15:58 General: Appears in no apparent distress. comfortable, Behavior is calm, cooperative, aj1 appropriate for age. Pain: Complains of pain in pelvis Pain currently is 8 out of 10 on a pain scale. Neuro: Level of Consciousness is awake, alert, obeys commands. Cardiovascular: Patient's skin is warm and dry. Respiratory: Airway is patent Respiratory effort is even, unlabored, Respiratory pattern is regular, symmetrical. 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 - Ebola Screening: : Patient denies travel to an Ebola-affected area in the 21 days before illness onset. - Social history:: Smoking status: Patient/guardian denies using tobacco. Screenin:30 Abuse screen: Denies threats or abuse. Denies injuries from another. Nutritional wh screening: No deficits noted. Tuberculosis screening: No symptoms or risk factors identified. Fall Risk None identified. Assessment: 20:00 General: Appears in no apparent distress. comfortable, Behavior is calm, cooperative, wh appropriate for age. Pain: Denies pain. Neuro: Level of Consciousness is awake, alert, obeys commands, Oriented to person, place, time, situation, Appropriate for age. Cardiovascular: Capillary refill < 3 seconds. Respiratory: Airway is patent Respiratory effort is even, unlabored, Respiratory pattern is regular, symmetrical. GI: Abdomen is flat, non-distended, Abd is soft and non tender X 4 quads. : Reports pain with urination. EENT: No signs and/or symptoms were reported regarding the EENT system. Derm: Skin is intact, is healthy with good turgor, Skin is pink, warm \T\ dry. normal. Musculoskeletal: Range of motion: intact in all extremities. 21:35 Reassessment: Patient appears in no apparent distress at this time. No changes from wh previously documented assessment. Patient and/or family updated on plan of care and expected duration. Pain level reassessed. Patient is alert, oriented x 3, equal unlabored respirations, skin warm/dry/pink. Vital Signs: 15:58 BP 132 / 91; Pulse 93; Resp 18; Temp 97.0; Pulse Ox 98% on R/A; Weight 90.72 kg (R); aj1 Height 5 ft. 9 in. (175.26 cm) (R); 20:30 BP 129 / 86; Pulse 86; Resp 18; Pulse Ox 100% ; wh 15:58 Body Mass Index 29.53 (90.72 kg, 175.26 cm) aj1 ED Course: 15:47 Patient arrived in ED. as 15:58 Triage completed. aj1 15:58 Arm band placed on Patient placed in waiting room, Patient notified of wait time. aj1 18:00 Shay Saldaña MD is Attending Physician. guille 18:04 Shay Ellington PA is PHCP. cp 18:09 Hollie Prescott, RN is Primary Nurse. iw 18:45 Inserted saline lock: 24 gauge in right forearm, using aseptic technique. Blood wh collected. By Hollie Charge nurse. 19:47 US Transvaginal Study (Probe) In Process Unspecified. EDMS 20:30 Patient has correct armband on for positive identification. Placed in gown. Bed in low wh position. Call light in reach. Side rails up X 1. Pulse ox on. NIBP on. 20:45 Assist provider with pelvic exam: Set up pelvic tray. Performed by Shay DAMON Specimens sent to lab. Patient tolerated well. Becky EDT as Broadcast Producer. 21:20 Alberto Gonzalez MD is Referral Physician. 21:45 IV discontinued, intact, bleeding controlled, No redness/swelling at site. Administered Medications: 21:38 Drug: TORadol 30 mg Route: IVP; Site: right forearm; 21:46 Follow up: Response: No adverse reaction; Pain is decreased 21:38 Drug: Rocephin 1 grams Route: IV; Rate: calculated rate; Site: right forearm; 21:47 Follow up: Response: No adverse reaction; IV Status: Completed infusion Outcome: 21:21 Discharge ordered by MD. 21:45 Discharged to home ambulatory. 21:45 Condition: good 21:45 Discharge instructions given to patient, Instructed on discharge instructions, follow up and referral plans. medication usage, POC Pelvic Pain Demonstrated understanding of instructions, follow-up care, medications, POC Prescriptions given X 4. 21:47 Patient left the ED. Signatures: Dispatcher [employer] EDMS Melissa Landers RN RN aj1 Shay Saldaña MD MD cha Martinez, Amelia as Williams, Irene, Shay Elise RN, PA PA cp Habalo, Winsy
--- NOTE | 2018-11-06 21:22 | EDPHYS ---
Physician Documentation [facility] Name: Peng Preciado Age: 38 yrs Sex: Female : 1980 Arrival Date: 11/06/2018 Time: 15:47 Bed 11 Private MD: ED Physician Shay Saldaña HPI: 11/06 18:20 This 38 yrs old Black Female presents to ER via Ambulatory with complaints of Urinary cp Problem, Pain All Over. 18:20 The patient presents with pelvic pain, vaginal discharge, lower abdomen. Onset: The cp symptoms/episode began/occurred 2 day(s) ago, and became worse today. Associated signs and symptoms: Pertinent positives: subjective fevers, generalized pain, Pertinent negatives: vaginal bleeding. Severity of symptoms: in the emergency department the symptoms are unchanged, despite home interventions. The patient is sexually active. 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 - Ebola Screening: : Patient denies travel to an Ebola-affected area in the 21 days before illness onset. - Social history:: Smoking status: Patient/guardian denies using tobacco. ROS: 18:30 Constitutional: Negative for body aches, chills, fever, poor PO intake. cp 18:30 Eyes: Negative for injury, pain, redness, and discharge. cp 18:30 ENT: Negative for drainage from ear(s), ear pain, sore throat, difficulty swallowing, difficulty handling secretions. 18:30 Cardiovascular: Negative for chest pain, palpitations. 18:30 Respiratory: Negative for cough, shortness of breath, wheezing. 18:30 Abdomen/GI: Positive for abdominal pain, Negative for vomiting, diarrhea, constipation, black/tarry stool, rectal bleeding. 18:30 : Positive for pelvic pain, vaginal discharge, Negative for vaginal bleeding. 18:30 All other systems are negative. Exam: 18:35 Constitutional: The patient appears in no acute distress, alert, awake, non-toxic, well cp developed, well nourished, obese. 18:35 Head/Face: Normocephalic, atraumatic. cp 18:35 Eyes: Periorbital structures: appear normal, Conjunctiva: normal, no exudate, no injection, Sclera: no appreciated abnormality, Lids and lashes: appear normal, bilaterally. 18:35 ENT: External ear(s): are unremarkable, Nose: is normal, Mouth: is normal, Posterior pharynx: is normal, airway is patent, no erythema, no exudate. 18:35 Chest/axilla: Inspection: normal, Palpation: is normal, no crepitus, no tenderness. 18:35 Cardiovascular: Rate: normal, Rhythm: regular. 18:35 Respiratory: the patient does not display signs of respiratory distress, Respirations: normal, no use of accessory muscles, no retractions, no splinting, no tachypnea, labored breathing, is not present, Breath sounds: are clear throughout, no decreased breath sounds, no stridor, no wheezing. 18:35 Abdomen/GI: Inspection: abdomen appears normal, Bowel sounds: active, all quadrants, Palpation: soft, in all quadrants, mild abdominal tenderness, in the suprapubic area, right lower quadrant and left lower quadrant, rebound tenderness, is not appreciated, involuntary guarding, is not appreciated. 18:35 Skin: no rash present. 20:30 : CVA tenderness, is absent, Pelvic Exam: External exam: is normal, Speculum exam: no cp bleeding is noted, os that is closed, bimanual exam reveals cervical motion tenderness, uterine tenderness, right adnexal tenderness, left adnexal tenderness, no adnexal mass on right, no adnexal mass on left, discharge, white, the alignment technician was present for the exam. Vital Signs: 15:58 BP 132 / 91; Pulse 93; Resp 18; Temp 97.0; Pulse Ox 98% on R/A; Weight 90.72 kg (R); aj1 Height 5 ft. 9 in. (175.26 cm) (R); 20:30 BP 129 / 86; Pulse 86; Resp 18; Pulse Ox 100% ; wh 15:58 Body Mass Index 29.53 (90.72 kg, 175.26 cm) aj1 MDM: 18:00 Patient medically screened. guille 19:00 Differential diagnosis: nonspecific abdominal pain, ovarian cyst, pelvic inflammatory cp disease, urinary tract infection, vaginosis. 21:20 Data reviewed: vital signs, nurses notes, lab test result(s), radiologic studies, cp ultrasound, and as a result, I will discharge patient. 21:20 Counseling: I had a detailed discussion with the patient and/or guardian regarding: the cp historical points, exam findings, and any diagnostic results supporting the discharge/admit diagnosis, lab results, radiology results, the need for outpatient follow up, an OB/Gyne specialist, to return to the emergency department if symptoms worsen or persist or if there are any questions or concerns that arise at home. 21:20 Special discussion: Based on the patient's Hx, exam, and Dx evaluation, there is no cp indication for emergent surgery or inpatient Tx. It is understood by the patient/guardian that if the Sx's persist or worsen they need to return immediately for re-evaluation. 11/06 18:16 Order name: Basic Metabolic Panel; Complete Time: 19:53 cp 11/06 18:16 Order name: CBC with Diff; Complete Time: 19:53 cp 11/06 18:16 Order name: Creatinine for Radiology; Complete Time: 19:53 cp 11/06 18:16 Order name: Hepatic Function; Complete Time: 19:53 cp 11/06 18:16 Order name: Lipase; Complete Time: 19:53 cp 11/06 16:41 Order name: Urine Test (obtain specimen); Complete Time: 19:16 snw 11/06 18:41 Order name: Urine Dipstick--Ancillary (enter results); Complete Time: 19:53 bd 11/06 18:41 Order name: Urine --Ancillary (enter results); Complete Time: 19:53 bd 11/06 18:41 Order name: US Transvaginal Study (Probe); Complete Time: 20:10 cp 11/06 19:54 Order name: Wet Prep; Complete Time: 21:19 cp 11/06 19:54 Order name: GC (GONORR/CHLAMYDIA) Probe cp 11/06 16:41 Order name: Urine Dipstick-Ancillary (obtain specimen); Complete Time: 19:16 snw 11/06 18:16 Order name: IV Saline Lock; Complete Time: 18:50 cp 11/06 18:16 Order name: Labs collected and sent; Complete Time: 18:50 cp 11/06 19:54 Order name: Pelvic Exam Setup; Complete Time: 20:18 cp Administered Medications: 21:38 Drug: TORadol 30 mg Route: IVP; Site: right forearm; 21:46 Follow up: Response: No adverse reaction; Pain is decreased 21:38 Drug: Rocephin 1 grams Route: IV; Rate: calculated rate; Site: right forearm; 21:47 Follow up: Response: No adverse reaction; IV Status: Completed infusion Disposition: 11/06/18 21:21 Discharged to Home. Impression: Abdominal and pelvic pain. - Condition is Stable. - Discharge Instructions: Pelvic Pain, Female. - Prescriptions for Diflucan 150 mg Oral Tablet - take 1 tablet by ORAL route every other day for 2 days; 2 tablet. Ibuprofen 800 mg Oral Tablet - take 1 tablet by ORAL route every 8 hours As needed take with food; 30 tablet. Doxycycline Hyclate 100 mg Oral Tablet - take 1 tablet by ORAL route every 12 hours; 20 tablet. Metronidazole 500 mg Oral Tablet - take 1 tablet by ORAL route every 8 hours; 30 tablet. - Medication Reconciliation Form, Thank You Letter, Antibiotic Education, Prescription Opioid Use form. - Follow up: Alberto Gonzalez MD; When: 1 week; Reason: Recheck today's complaints. - Problem is new. - Symptoms have improved. Addendum: 11/08/2018 08:11 Co-signature as Attending Physician, Shay Saldaña MD I agree with the assessment and c mckenzie plan of care. Signatures: Dispatcher [employer] EDMelissa Ramirez RN RN aj1 Shay Saldaña MD MD cha Therrien, Shelly, LOGISTICS OPERATIONS MANAGER-C LOGISTICS OPERATIONS MANAGER-Csnw Shay Ellington PA PA cp Habalo, Winsy Corrections: (The following items were deleted from the chart) 11/06 21:47 21:21 11/06/2018 21:21 Discharged to Home. Impression: Abdominal and pelvic pain. Condition is Stable. Forms are Medication Reconciliation Form, Thank You Letter, Antibiotic Education, Prescription Opioid Use. Follow up: Alberto Gonzalez; When: 1 week; Reason: Recheck today's complaints. Problem is new. Symptoms have improved. cp
[2018-11-06] MEDS ORDERED: CEFTRIAXONE/SWI 1gm 1 GM/10 ML SYR ONE (21:28)
[2018-11-06] MEDS ORDERED: KETOROLAC 30 MG/ML INJ ONE (21:28)
[2018-11-06 23:16] VITALS: TEMP 97
[2018-11-06 23:17] VITALS: BP 129/86; O2SAT 100
[2018-11-10 20:49] LABS: C.trachomatis RNA,TMA Not Detected (Not Detected)
== END 2018-11-06 21:47 | disposition home or self-care (01) ==
LOC: ER 15:43
DX: R10.2 Pelvic and perineal pain (principal)
CPT/HCPCS: 85025; 80048; 36415; 81025; 80076; 87210; 81003; 83690; 87590; 87490; 76830; 96375; 96374; 99284; J0696

== ENCOUNTER 2018-12-09 22:17 | Emergency (ER) | payer OTHER ==
--- NOTE | 2018-12-09 23:12 | EDPHYS ---
Physician Documentation [facility] Name: Peng Preciado Age: 38 yrs Sex: Female : 1980 Arrival Date: 12/09/2018 Time: 22:24 Bed 7 Private MD: ED Physician Jesus Manuel Caceres HPI: 12/09 23:06 This 38 yrs old Black Female presents to ER via Ambulatory with complaints of Boil. kb 23:07 The patient presents with an abscess of the left axilla. Description: swollen. Onset: kb The symptoms/episode began/occurred 1 week(s) ago. Possible cause(s): unknown. Associated signs and symptoms: Pertinent positives: swelling, Pertinent negatives: discharge, drainage, erythema, foreign body sensation, fever, headache, nausea, shortness of breath, vomiting. Modifying factors: the symptoms are alleviated by nothing, the symptoms are aggravated by pressure, touching. Severity of symptoms: At their worst the symptoms were moderate, in the emergency department the symptoms are unchanged. The patient has not experienced similar symptoms in the past. The patient has not recently seen a physician. Pt reports knots in left axilla that are really deep. Reports soreness to them when she noticed them last week but that is better now. Getting them checked out now because she was already here with her son. 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 - Social history:: Smoking status: Patient/guardian denies using tobacco, never smoked. - Ebola Screening: : No symptoms or risks identified at this time. ROS: 23:07 Constitutional: Negative for fever, chills, and weight loss, Neck: Negative for injury, kb pain, and swelling, Cardiovascular: Negative for chest pain, palpitations, and edema, Respiratory: Negative for shortness of breath, cough, wheezing, and pleuritic chest pain, Abdomen/GI: Negative for abdominal pain, nausea, vomiting, diarrhea, and constipation, Back: Negative for injury and pain, MS/Extremity: Negative for injury and deformity, Neuro: Negative for headache, weakness, numbness, tingling, and seizure. 23:07 Skin: Positive for abscess, of the left axilla. Exam: 23:07 Constitutional: This is a well developed, well nourished patient who is awake, alert, kb and in no acute distress. Head/Face: Normocephalic, atraumatic. ENT: Nares patent. No nasal discharge, no septal abnormalities noted. Tympanic membranes are normal and external auditory canals are clear. Oropharynx with no redness, swelling, or masses, exudates, or evidence of obstruction, uvula midline. Mucous membranes moist. Neck: Trachea midline, no thyromegaly or masses palpated, and no cervical lymphadenopathy. Supple, full range of motion without nuchal rigidity, or vertebral point tenderness. No Meningismus. Chest/axilla: Normal chest wall appearance and motion. Nontender with no deformity. No lesions are appreciated. Cardiovascular: Regular rate and rhythm with a normal S1 and S2. No gallops, murmurs, or rubs. Normal PMI, no JVD. No pulse deficits. Respiratory: Lungs have equal breath sounds bilaterally, clear to auscultation and percussion. No rales, rhonchi or wheezes noted. No increased work of breathing, no retractions or nasal flaring. Abdomen/GI: Soft, non-tender, with normal bowel sounds. No distension or tympany. No guarding or rebound. No evidence of tenderness throughout. MS/ Extremity: Pulses equal, no cyanosis. Neurovascular intact. Full, normal range of motion. Neuro: Awake and alert, GCS 15, oriented to person, place, time, and situation. Cranial nerves II-XII grossly intact. Motor strength 5/5 in all extremities. Sensory grossly intact. Cerebellar exam normal. Normal gait. 23:07 Skin: abscess, that is moderate sized, of the left axilla, with induration. Vital Signs: 22:45 BP 146 / 76; Pulse 77; Resp 17; Temp 98.4; Pulse Ox 100% ; Weight 95.25 kg; Height 5 rv ft. 11 in. (180.34 cm); 22:45 Body Mass Index 29.29 (95.25 kg, 180.34 cm) rv MDM: 22:32 Patient medically screened. kb 23:07 Data reviewed: vital signs, nurses notes. Data interpreted: Pulse oximetry: on room air kb is 100 %. Interpretation: normal. 23:11 Counseling: I had a detailed discussion with the patient and/or guardian regarding: the kb historical points, exam findings, and any diagnostic results supporting the discharge/admit diagnosis, the need for outpatient follow up, a general surgeon, to return to the emergency department if symptoms worsen or persist or if there are any questions or concerns that arise at home. Administered Medications: 23:23 Drug: Bactrim (160 mg-800 mg (DS) 1 tablet Route: PO; jb4 23:24 Follow up: Response: Medication administered at discharge. jb4 Disposition: 12/10 07:12 Co-signature as Attending Physician, Jesus Manuel Caceres MD Available for consultation at ps1 all times . Disposition: 12/09/18 23:11 Discharged to Home. Impression: Cutaneous abscess of left axilla. - Condition is Stable. - Discharge Instructions: Skin Abscess, [id number]. - Prescriptions for Bactrim DS 800- 160 mg Oral Tablet - take 1 tablet by ORAL route every 12 hours for 10 days; 20 tablet. - Medication Reconciliation Form, Thank You Letter, Antibiotic Education, Prescription Opioid Use form. - Follow up: Emergency Department; When: As needed; Reason: Worsening of condition. Follow up: Private Physician; When: 2 - 3 days; Reason: Recheck today's complaints, Continuance of care, Re-evaluation by your physician. Signatures: Corry Fitzpatrick, RETAIL KEY HOLDER-C TRAN-Keegan Rehman RN RN [facility] Jesus Manuel Caceres MD MD [facility] Paul Sifuentes RN RN rv Corrections: (The following items were deleted from the chart) 12/09 23:30 23:11 12/09/2018 23:11 Discharged to Home. Impression: Cutaneous abscess of left jb4 axilla. Condition is Stable. Forms are Medication Reconciliation Form, Thank You Letter, Antibiotic Education, Prescription Opioid Use. Follow up: Emergency Department; When: As needed; Reason: Worsening of condition. Follow up: Private Physician; When: 2 - 3 days; Reason: Recheck today's complaints, Continuance of care, Re-evaluation by your physician. kb
--- NOTE | 2018-12-09 23:12 | ER ---
Nurse's Notes [facility] Name: Peng Preciado Age: 38 yrs Sex: Female : 1980 Arrival Date: 12/09/2018 Time: 22:24 Bed 7 Private MD: Diagnosis: Cutaneous abscess of left axilla Presentation: 12/09 22:42 Presenting complaint: Patient states: i have abscess on my left arm and it really rv hurts. Transition of care: patient was not received from another setting of care. Onset of symptoms was December 08, 2018 at 08:00. Risk Assessment: Do you want to hurt yourself or someone else? Patient reports no desire to harm self or others. Initial Sepsis Screen: Does the patient meet any 2 criteria? No. Patient's initial sepsis screen is negative. Does the patient have a suspected source of infection? No. Patient's initial sepsis screen is negative. Care prior to arrival: None. 22:42 Method Of Arrival: Ambulatory rv 22:42 Acuity: SIMONE 4 rv Triage Assessment: 22:46 General: Appears in no apparent distress. comfortable, Behavior is calm, cooperative. rv Pain: Complains of pain in left axilla. EENT: No signs and/or symptoms were reported regarding the EENT system. Neuro: Level of Consciousness is awake, alert, obeys commands, Oriented to person, place, time, situation. Cardiovascular: Patient's skin is warm and dry. Respiratory: Airway is patent. GI: No signs and/or symptoms were reported involving the gastrointestinal system. : No signs and/or symptoms were reported regarding the genitourinary system. Derm: Abscess located on left axilla. 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 - Social history:: Smoking status: Patient/guardian denies using tobacco, never smoked. - Ebola Screening: : No symptoms or risks identified at this time. Screenin:39 Abuse screen: Denies threats or abuse. Nutritional screening: No deficits noted. jb4 Tuberculosis screening: No symptoms or risk factors identified. Fall Risk None identified. Assessment: 22:39 General: Appears in no apparent distress. comfortable, Behavior is calm, cooperative, jb4 appropriate for age. Pain: Complains of pain in left axilla Pain does not radiate. Pain currently is 7 out of 10 on a pain scale. Neuro: Level of Consciousness is awake, alert, obeys commands, Oriented to person, place, time, situation. Cardiovascular: Patient's skin is warm and dry. Respiratory: Airway is patent Respiratory effort is even, unlabored, Respiratory pattern is regular, symmetrical. GI: No deficits noted. No signs and/or symptoms were reported involving the gastrointestinal system. : No deficits noted. No signs and/or symptoms were reported regarding the genitourinary system. EENT: No deficits noted. No signs and/or symptoms were reported regarding the EENT system. Derm: Skin is intact, Skin is dry, Skin is normal, Skin temperature is warm Firm mass noted in the left axilla. Slightly raised, no redness or warmth noted to the area. Pt reports green drainage with a foul odor. Musculoskeletal: Circulation, motion, and sensation intact. Range of motion: intact in all extremities. 23:29 Reassessment: Patient appears in no apparent distress at this time. Patient and/or jb4 family updated on plan of care and expected duration. Pain level reassessed. Patient is alert, oriented x 3, equal unlabored respirations, skin warm/dry/pink. Vital Signs: 22:45 BP 146 / 76; Pulse 77; Resp 17; Temp 98.4; Pulse Ox 100% ; Weight 95.25 kg; Height 5 rv ft. 11 in. (180.34 cm); 22:45 Body Mass Index 29.29 (95.25 kg, 180.34 cm) rv ED Course: 22:24 Patient arrived in ED. cl3 22:32 Corry Fitzpatrick FNP-C [facility]. kb 22:32 Jesus Manuel Caceres MD is Attending Physician. kb 22:39 Keegan Sequeira, VIRGIE is Primary Nurse. jb4 22:39 Patient has correct armband on for positive identification. Bed in low position. Call jb4 light in reach. Side rails up X 1. Pulse ox on. NIBP on. 22:43 Triage completed. rv 23:29 No provider procedures requiring assistance completed. Patient did not have IV access jb4 during this emergency room visit. Administered Medications: 23:23 Drug: Bactrim (160 mg-800 mg (DS) 1 tablet Route: PO; jb4 23:24 Follow up: Response: Medication administered at discharge. jb4 Outcome: 23:11 Discharge ordered by . kb 23:29 Discharged to home ambulatory. jb4 23:29 Condition: stable 23:29 Discharge instructions given to patient, Instructed on discharge instructions, follow up and referral plans. medication usage, Demonstrated understanding of instructions, follow-up care, medications, Prescriptions given X 1. 23:30 Patient left the ED. jb4 Signatures: Corry Fitzpatrick, LAVINIA NIEVESP-Keegan Rehman RN RN jb4 Paul Sifuentes, RN RN rv Emelyn Toro cl3
[2018-12-09] MEDS ORDERED: SMZ./TMP. 800/160 MG TABLET ONE (23:21)
[2018-12-09 23:39] VITALS: BP 146/76; TEMP 98.4; O2SAT 100
== END 2018-12-09 23:30 | disposition home or self-care (01) ==
LOC: ER 22:17
DX: L02.412 Cutaneous abscess of left axilla (principal)
CPT/HCPCS: 99283

== ENCOUNTER 2019-01-08 15:18 | Emergency (ER) | payer MEDICAID ==
[2019-01-08 16:18] LABS: Urine Blood NEGATIVE (NEG); Urine Glucose NEGATIVE (NEG); Urine Protein TRACE (NEG)
[2019-01-08 16:21] LABS: Urine Bacteria >50 /HPF (<20); Urine RBC <5 /HPF (NONE SEEN)
[2019-01-08 16:22] LABS: Urine Culture Reflex Order NOT NEEDED
--- NOTE | 2019-01-08 16:28 | EDPHYS ---
Physician Documentation [facility] Name: Peng Preciado Age: 38 yrs Sex: Female : 1980 Arrival Date: 01/08/2019 Time: 15:21 Bed 17 Private MD: ED Physician Shay Saldaña HPI: 01/08 15:50 This 38 yrs old Black Female presents to ER via Ambulatory with complaints of Urinary cp Problem, Toothache. 15:50 The patient presents with pain. The problem is located in the right lower jaw. cp 15:50 Onset: The symptoms/episode began/occurred gradually. Associated signs and symptoms: cp Pertinent positives: nausea, abdominal pain, urinary symptoms, Pertinent negatives: fever, inability to eat. 15:50 Severity of symptoms: in the emergency department the symptoms are unchanged, despite cp home interventions. The patient has experienced similar episodes in the past, multiple times. 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 - Social history:: Smoking status: Patient/guardian denies using tobacco. - Ebola Screening: : Patient denies travel to an Ebola-affected area in the 21 days before illness onset. ROS: 16:00 Constitutional: Negative for body aches, chills, fever, poor PO intake. cp 16:00 Eyes: Negative for injury, pain, redness, and discharge. cp 16:00 ENT: Positive for dental pain, Negative for drainage from ear(s), ear pain, sore throat, difficulty swallowing, difficulty handling secretions. 16:00 Cardiovascular: Negative for chest pain. 16:00 Respiratory: Negative for cough, shortness of breath, wheezing. 16:00 Abdomen/GI: Positive for abdominal pain, nausea, Negative for diarrhea, constipation. 16:00 : Positive for urinary symptoms. 16:00 Skin: Negative for rash. 16:00 Neuro: Negative for altered mental status, headache, weakness. 16:00 All other systems are negative. Exam: 16:05 Constitutional: The patient appears in no acute distress, alert, awake, non-toxic, well cp developed, well nourished. 16:05 Head/Face: Normocephalic, atraumatic. cp 16:05 Eyes: Periorbital structures: appear normal, Conjunctiva: normal, no exudate, no injection, Sclera: no appreciated abnormality, Lids and lashes: appear normal, bilaterally. 16:05 ENT: External ear(s): are unremarkable, Ear canal(s): are normal, clear, TM's: bulging, is not appreciated, bilaterally, dullness, bilaterally, erythema, is not appreciated, bilaterally, Nose: is normal, Mouth: Lips: moist, Oral mucosa: pink and intact, moist, Posterior pharynx: Airway: no evidence of obstruction, patent, Tonsils: are normal in appearance, erythema, is not appreciated, exudate, is not appreciated, Dental exam: abscess, is not appreciated, dental caries, that is severe, diffusely, fractured teeth are noted, specifically the lower right first molar (#30), lower right second molar (#31) and lower right third molar (#32), gum swelling, that is mild, specifically in the lower right first molar (#30), lower right second molar (#31) and lower right third molar (#32), pain, that is mild, specifically in the lower right first molar (#30), lower right second molar (#31) and lower right third molar (#32), Voice: is normal. 16:05 Neck: ROM/movement: is normal, is supple, without pain, no range of motions limitations, no meningismus, no nuchal rigidity, Lymph nodes: no appreciated lymphadenopathy. 16:05 Chest/axilla: Inspection: normal, Palpation: is normal, no crepitus, no tenderness. 16:05 Cardiovascular: Rate: normal, Rhythm: regular. 16:05 Respiratory: the patient does not display signs of respiratory distress, Respirations: normal, no use of accessory muscles, no retractions, no splinting, no tachypnea. 16:05 Abdomen/GI: Inspection: abdomen appears normal, Palpation: abdomen is soft and non-tender, in all quadrants. 16:05 Back: CVA tenderness, is absent. 16:05 Skin: no rash present. 16:05 Neuro: Orientation: to person, place \T\ time. Mentation: is normal. Vital Signs: 15:31 BP 144 / 109; Pulse 88; Resp 18; Temp 98.7; Pulse Ox 99% on R/A; Weight 90.72 kg (R); aj1 Height 5 ft. 9 in. (175.26 cm) (R); 16:46 BP 137 / 92; Pulse 78; Resp 19; Pulse Ox 100% on R/A; Pain 7/10; em 15:31 Body Mass Index 29.53 (90.72 kg, 175.26 cm) aj1 MDM: 15:33 Patient medically screened. guille 16:00 Differential diagnosis: dental caries, gingivitis, dental abscess, gingivostomatitis, cp UTI, pyelonephritis. 16:28 Data reviewed: vital signs, nurses notes. cp 16:28 Counseling: I had a detailed discussion with the patient and/or guardian regarding: the cp historical points, exam findings, and any diagnostic results supporting the discharge/admit diagnosis, the need for outpatient follow up, a dentist, a family practitioner, to return to the emergency department if symptoms worsen or persist or if there are any questions or concerns that arise at home. Response to treatment: the patient's symptoms have mildly improved after treatment, and as a result, I will discharge patient. 01/08 15:46 Order name: Urine Microscopic Only; Complete Time: 16:24 cp 01/08 16:24 Interpretation: Normal except: UWBC 5-10; UBACT >50; SQEPI 20-50. cp 01/08 15:59 Order name: Urine Dipstick--Ancillary (enter results); Complete Time: 16:24 eb 01/08 16:24 Interpretation: Normal except: UESTR 3+. cp 01/08 15:46 Order name: Urine Dipstick-Ancillary (obtain specimen); Complete Time: 15:55 cp 01/08 15:46 Order name: Urine Test (obtain specimen); Complete Time: 15:55 cp 01/08 15:59 Order name: Urine --Ancillary (enter results); Complete Time: 16:24 eb Administered Medications: No medications were administered Disposition: 01/08/19 16:28 Discharged to Home. Impression: Dental caries, unspecified, Jaw pain - right lower, Unspecified symptoms and signs involving the genitourinary system. - Condition is Stable. - Discharge Instructions: Abdominal Pain, Adult, Dental Caries, Adult, Dental Pain. - Prescriptions for Peridex 0.12 % Mucous Membrane mouthwash - place 15 milliliter by MUCOUS MEMBRANE route 2 times per day (after meals), swish in mouth for 30 seconds then spit out; 1 bottle. Augmentin 875- 125 mg Oral Tablet - take 1 tablet by ORAL route every 12 hours for 10 days; 20 tablet. Ibuprofen 800 mg Oral Tablet - take 1 tablet by ORAL route every 8 hours As needed take with food; 30 tablet. Zofran 4 mg Oral Tablet - take 1 tablet by ORAL route every 12 hours As needed; 20 tablet. - Medication Reconciliation Form, Thank You Letter, Antibiotic Education, Prescription Opioid Use form. - Follow up: Ac Siegel DDS; When: 2 - 3 days; Reason: dental pain. Follow up: Private Physician; When: 1 - 2 days; Reason: urinary symptoms, abdominal pain. - Problem is an ongoing problem. - Symptoms are unchanged. Addendum: 01/10/2019 13:14 Co-signature as Attending Physician, Shay Saldaña MD I agree with the assessment and c mckenzie plan of care. Signatures: Dispatcher [employer] Melissa Liang RN RN aj1 Shay Saldaña MD MD cha Munoz, Edgar, ACID CONDITIONER ACID CONDITIONER em Shay Ellington PA PA cp Corrections: (The following items were deleted from the chart) 01/08 16:46 16:28 01/08/2019 16:28 Discharged to Home. Impression: Dental caries, unspecified; Jaw em pain - right lower; Unspecified symptoms and signs involving the genitourinary system. Condition is Stable. Forms are Medication Reconciliation Form, Thank You Letter, Antibiotic Education, Prescription Opioid Use. Follow up: Ac Siegel; When: 2 - 3 days; Reason: dental pain. Follow up: Private Physician; When: 1 - 2 days; Reason: urinary symptoms, abdominal pain. Problem is an ongoing problem. Symptoms are unchanged. cp
--- NOTE | 2019-01-08 16:28 | ER ---
Nurse's Notes [facility] Name: Peng Preciado Age: 38 yrs Sex: Female : 1980 Arrival Date: 01/08/2019 Time: 15:21 Bed 17 Private MD: Diagnosis: Dental caries, unspecified;Jaw pain-right lower;Unspecified symptoms and signs involving the genitourinary system Presentation: 01/08 15:28 Presenting complaint: Patient states: "I feel like I have a tooth infection and I feel aj1 like I have a UTI. I was here 2 weeks ago for an infection in my side, but now it feels like I have an all over infection, everything is aching, I feel nauseous I have stomach pain" Denies fever. Transition of care: patient was not received from another setting of care. Onset of symptoms was 2018. Risk Assessment: Do you want to hurt yourself or someone else? Patient reports no desire to harm self or others. Initial Sepsis Screen: Does the patient meet any 2 criteria? No. Patient's initial sepsis screen is negative. Does the patient have a suspected source of infection? No. Patient's initial sepsis screen is negative. Care prior to arrival: None. 15:28 Method Of Arrival: Ambulatory aj1 15:28 Acuity: SIMONE 3 aj1 Triage Assessment: 15:31 General: Appears in no apparent distress. comfortable, Behavior is calm, cooperative, aj1 appropriate for age. Pain: Pain currently is 7 out of 10 on a pain scale. EENT: Reports toothache. Neuro: Level of Consciousness is awake, alert, obeys commands. Cardiovascular: Patient's skin is warm and dry. Respiratory: Airway is patent Respiratory effort is even, unlabored, Respiratory pattern is regular, symmetrical. 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 - Social history:: Smoking status: Patient/guardian denies using tobacco. - Ebola Screening: : Patient denies travel to an Ebola-affected area in the 21 days before illness onset. Screenin:45 Abuse screen: Denies threats or abuse. Nutritional screening: No deficits noted. em Tuberculosis screening: No symptoms or risk factors identified. Fall Risk None identified. Assessment: 15:45 General: Appears in no apparent distress. comfortable, Behavior is calm, cooperative, em Denies fever. Pain: Complains of pain in mouth Pain currently is 7 out of 10 on a pain scale. Pain began 2 weeks. Neuro: Level of Consciousness is awake, alert, obeys commands, Oriented to person, place, time, situation, Appropriate for age. Cardiovascular: Capillary refill < 3 seconds Patient's skin is warm and dry. Respiratory: Airway is patent Respiratory effort is even, unlabored, Respiratory pattern is regular, symmetrical. GI: Patient currently denies nausea, vomiting. : Reports burning with urination, since 2 weeks. Derm: Skin is intact, is healthy with good turgor, Skin is pink, warm \\T\\ dry. Musculoskeletal: Capillary refill < 3 seconds, Range of motion: intact in all extremities. 15:45 EENT: Reports pain in mouth. em 15:45 Reassessment: I agree with assessment completed by Gerardo Caballero LVN . aa5 Vital Signs: 15:31 BP 144 / 109; Pulse 88; Resp 18; Temp 98.7; Pulse Ox 99% on R/A; Weight 90.72 kg (R); aj1 Height 5 ft. 9 in. (175.26 cm) (R); 16:46 BP 137 / 92; Pulse 78; Resp 19; Pulse Ox 100% on R/A; Pain 7/10; em 15:31 Body Mass Index 29.53 (90.72 kg, 175.26 cm) aj1 ED Course: 15:21 Patient arrived in ED. mr 15:25 Shay Ellington PA is PHCP. cp 15:25 Shay Saldaña MD is Attending Physician. cp 15:31 Triage completed. aj1 15:31 Arm band placed on Patient placed in an exam room. aj1 15:35 Gerardo Caballero LVN is Primary Nurse. em 15:45 Patient has correct armband on for positive identification. Bed in low position. Call em light in reach. 16:26 Ac Siegel DDS is Referral Physician. cp 16:45 No provider procedures requiring assistance completed. Patient did not have IV access em during this emergency room visit. Administered Medications: No medications were administered Outcome: 16:28 Discharge ordered by . cp 16:45 Discharged to home ambulatory. em 16:45 Condition: good 16:45 Discharge instructions given to patient, Instructed on discharge instructions, follow up and referral plans. medication usage, Demonstrated understanding of instructions, follow-up care, medications, Prescriptions given X 4. 16:46 Patient left the ED. em Signatures: Melissa Landers RN RN aj1 Kia Adamson mr Gerardo Caballero, PATIENT FINANCIAL SERVICES COORDINATOR PATIENT FINANCIAL SERVICES COORDINATOR em Mesha Santiago, RN RN aa5 Shay Ellington, PA PA cp
[2019-01-08 20:37] VITALS: BP 137/92; O2SAT 100
[2019-01-08 20:38] VITALS: TEMP 98.7
== END 2019-01-08 16:46 | disposition home or self-care (01) ==
LOC: ER 15:18
DX: K02.9 Dental caries, unspecified (principal); R39.9 Unspecified symptoms and signs involving the genitourinary system; I10 Essential (primary) hypertension
CPT/HCPCS: 81003; 81015; 81025; 99282

== ENCOUNTER 2019-02-20 16:07 | Emergency (ER) | payer MEDICAID, SELFPAY ==
[2019-02-20 18:21] LABS: Urine Blood 2+ (NEG); Urine Glucose NEGATIVE (NEG); Urine Protein NEGATIVE (NEG); Urine Specific Gravity 1.025 (1.005-1.030); Urine pH 5.5 (5.0-7.0)
[2019-02-20 18:28] LABS: Urine Bacteria 20-50 /HPF (<20); Urine Culture Reflex Order REFLEXED; Urine RBC <5 /HPF (NONE SEEN)
[2019-02-20 19:12] LABS: Absolute Lymphocytes (CBC) 1.6 K/uL (0.7-4.9); Basophils % 0.9 % (0-1.3); Hematocrit 40.1 % (36.0-45.0); Lymphocytes % 21.1 % (15.3-44.8); MPV 9.5 fL (7.6-11.3); RBC Red Blood Cell Count 4.35 M/uL (3.86-4.86)
[2019-02-20 19:15] LABS: ALT/SGPT 21 U/L (12-78); AST/SGOT 11 U/L (15-37); Albumin 3.8 g/dL (3.4-5.0); Alkaline Phosphatase 120 U/L (45-117); BUN Blood Urea Nitrogen 7 mg/dL (7-18); Bicarbonate 27 mmol/L (21-32); Bilirubin Direct < 0.1 mg/dL (0-0.2); Bilirubin Total 0.3 mg/dL (0.2-1.0); Glucose Level 87 mg/dL (74-106); Lipase 39 U/L (73-393); Potassium 3.8 mmol/L (3.5-5.1); Protein, Total 8.3 g/dL (6.4-8.2); Sodium Level 138 mmol/L (136-145)
--- NOTE | 2019-02-20 19:24 | EDPHYS ---
Physician Documentation [facility] Name: Peng Preciado Age: 38 yrs Sex: Female : 1980 Arrival Date: 02/20/2019 Time: 16:11 Bed 14 Private MD: ED Physician Kaelyn Cortes HPI: 02/20 16:49 This 38 yrs old Black Female presents to ER via Ambulatory with complaints of Abdominal pm1 Pain. 16:49 The patient presents with abdominal pain suprapubic area. Onset: The symptoms/episode pm1 began/occurred 1 week(s) ago. The symptoms do not radiate. Associated signs and symptoms: Pertinent positives: chest pain that started this AM, vaginal bleeding for 1 week that resolved yesterday. Burning with urination, Pertinent negatives: nausea, vomiting, and diarrhea. The symptoms are described as crampy. Modifying factors: The symptoms are alleviated by nothing, the symptoms are aggravated by nothing. history of uterine fibroids with irregular vaginal bleeding. 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 - Social history:: Smoking status: Patient/guardian denies using tobacco. - Ebola Screening: : Patient denies travel to an Ebola-affected area in the 21 days before illness onset. ROS: 16:49 Constitutional: Negative for fever, chills, and weight loss, Eyes: Negative for injury, pm1 pain, redness, and discharge, ENT: Negative for injury, pain, and discharge, Neck: Negative for injury, pain, and swelling. 16:49 Respiratory: Negative for shortness of breath, cough, wheezing, and pleuritic chest pain. 16:49 Back: Negative for injury and pain. 16:49 MS/Extremity: Negative for injury and deformity, Skin: Negative for injury, rash, and discoloration, Neuro: Negative for headache, weakness, numbness, tingling, and seizure. 16:49 Cardiovascular: Positive for chest pain, Negative for edema, palpitations. 16:49 Abdomen/GI: Positive for abdominal cramps, of the suprapubic area, Negative for nausea, vomiting, and diarrhea. 16:49 : Positive for burning with urination, vaginal bleeding, Negative for flank pain. Exam: 16:49 Constitutional: This is a well developed, well nourished patient who is awake, alert, pm1 and in no acute distress. Head/Face: Normocephalic, atraumatic. Neck: Trachea midline, no thyromegaly or masses palpated, and no cervical lymphadenopathy. Supple, full range of motion without nuchal rigidity, or vertebral point tenderness. No Meningismus. Chest/axilla: Normal chest wall appearance and motion. Nontender with no deformity. No lesions are appreciated. Cardiovascular: Regular rate and rhythm with a normal S1 and S2. No gallops, murmurs, or rubs. Normal PMI, no JVD. No pulse deficits. Respiratory: Lungs have equal breath sounds bilaterally, clear to auscultation and percussion. No rales, rhonchi or wheezes noted. No increased work of breathing, no retractions or nasal flaring. Abdomen/GI: Soft, non-tender, with normal bowel sounds. No distension or tympany. No guarding or rebound. No evidence of tenderness throughout. Back: No spinal tenderness. No costovertebral tenderness. Full range of motion. Skin: Warm, dry with normal turgor. Normal color with no rashes, no lesions, and no evidence of cellulitis. MS/ Extremity: Pulses equal, no cyanosis. Neurovascular intact. Full, normal range of motion. 16:49 Neuro: Orientation: is normal, Motor: is normal, moves all fours. Vital Signs: 16:33 BP 139 / 94; Pulse 78; Resp 18; Temp 98.2; Pulse Ox 100% on R/A; Weight 95.25 kg (R); aj1 Height 5 ft. 8 in. (172.72 cm) (R); 19:00 BP 123 / 89; Pulse 78; Resp 16; Pulse Ox 98% on R/A; rv 20:00 BP 131 / 93; Pulse 74; Resp 16; Pulse Ox 98% on R/A; rv 20:30 BP 124 / 86; Pulse 76; Resp 16; Pulse Ox 99% on R/A; rv 16:33 Body Mass Index 31.93 (95.25 kg, 172.72 cm) aj1 MDM: 18:29 Patient medically screened. pm1 19:22 Data reviewed: vital signs. Data interpreted: Pulse oximetry: on room air is 100 %. pm1 Interpretation: normal. Counseling: I had a detailed discussion with the patient and/or guardian regarding: the historical points, exam findings, and any diagnostic results supporting the discharge/admit diagnosis, lab results, the need for outpatient follow up, to return to the emergency department if symptoms worsen or persist or if there are any questions or concerns that arise at home. 02/20 16:15 Order name: Urine Culture snw 02/20 16:15 Order name: Urine Microscopic Only; Complete Time: 18:29 snw 02/20 18:17 Order name: Urine Dipstick--Ancillary (enter results); Complete Time: 18:29 eb 02/20 18:17 Order name: Urine --Ancillary (enter results); Complete Time: 18:29 eb 02/20 18:34 Order name: Basic Metabolic Panel; Complete Time: 19:16 pm1 02/20 18:34 Order name: CBC with Diff; Complete Time: 19:16 pm1 02/20 16:15 Order name: Urine Test (obtain specimen); Complete Time: 18:11 snw 02/20 16:15 Order name: Urine Dipstick-Ancillary (obtain specimen); Complete Time: 18:11 snw 02/20 18:34 Order name: Creatinine for Radiology; Complete Time: 19:22 pm1 02/20 18:34 Order name: Hepatic Function; Complete Time: 19:16 pm1 02/20 18:34 Order name: Lipase; Complete Time: 19:16 pm1 02/20 18:37 Order name: EKG; Complete Time: 18:37 pm1 02/20 18:37 Order name: Troponin (emerg Dept Use Only); Complete Time: 19:22 pm1 02/20 18:34 Order name: IV Saline Lock; Complete Time: 19:02 pm1 02/20 18:34 Order name: Labs collected and sent; Complete Time: 19:02 pm1 02/20 18:37 Order name: EKG - Nurse/Tech; Complete Time: 19:01 pm1 Administered Medications: 20:00 Drug: Rocephin 1 grams Route: IV; Rate: calculated rate; Site: right antecubital; rv 20:42 Follow up: IV Status: Completed infusion rv Disposition: 02/20/19 19:24 Discharged to Home. Impression: Urinary tract infection, site not specified, Chest pain, unspecified, Abnormal uterine and vaginal bleeding, unspecified. - Condition is Stable. - Discharge Instructions: Abnormal Uterine Bleeding, Nonspecific Chest Pain, Urinary Tract Infection, Adult. - Prescriptions for Bactrim DS 800- 160 mg Oral Tablet - take 1 tablet by ORAL route every 12 hours for 10 days; 20 tablet. - Medication Reconciliation Form, Thank You Letter, Antibiotic Education, Prescription Opioid Use form. - Follow up: Emergency Department; When: As needed; Reason: Worsening of condition. Follow up: Private Physician; When: 2 - 3 days; Reason: Recheck today's complaints, Continuance of care, Re-evaluation by your physician. - Problem is new. - Symptoms have improved. Addendum: 02/22/2019 15:16 Co-signature as Attending Physician, Kaelyn Cortes MD. m a2 Signatures: Dispatcher [employer] EDMelissa Ramirez RN RN aj1 Isabell Lunsford, PAYROLL AND BENEFITS MANAGER-C PAYROLL AND BENEFITS MANAGER-[employer] Mickey Worthington NP MEDICAL CODER pm1 Kaelyn Cortes MD MD ma2 Paul Sifuentes RN RN rv Corrections: (The following items were deleted from the chart) 02/20 20:45 19:24 02/20/2019 19:24 Discharged to Home. Impression: Urinary tract infection, site rv not specified; Chest pain, unspecified; Abnormal uterine and vaginal bleeding, unspecified. Condition is Stable. Forms are Medication Reconciliation Form, Thank You Letter, Antibiotic Education, Prescription Opioid Use. Follow up: Emergency Department; When: As needed; Reason: Worsening of condition. Follow up: Private Physician; When: 2 - 3 days; Reason: Recheck today's complaints, Continuance of care, Re-evaluation by your physician. Problem is new. Symptoms have improved. pm1
--- NOTE | 2019-02-20 19:24 | ER ---
Nurse's Notes [facility] Name: Peng Preciado Age: 38 yrs Sex: Female : 1980 Arrival Date: 02/20/2019 Time: 16:11 Bed 14 Private MD: Diagnosis: Urinary tract infection, site not specified;Chest pain, unspecified;Abnormal uterine and vaginal bleeding, unspecified Presentation: 02/20 16:30 Presenting complaint: Patient states: "I was bleeding a few days ago but now that's aj1 stopped, but I still have uterine pain and abdominal pain, and I feel tired, and I feel like I lost a lot of blood." Patient reports history of uterine fibroids. Transition of care: patient was not received from another setting of care. Onset of symptoms was 2018. Risk Assessment: Do you want to hurt yourself or someone else? Patient reports no desire to harm self or others. Initial Sepsis Screen: Does the patient meet any 2 criteria? No. Patient's initial sepsis screen is negative. Does the patient have a suspected source of infection? Yes: Acute abdominal pain. Care prior to arrival: None. 16:30 Method Of Arrival: Ambulatory aj 16:30 Acuity: SIMONE 3 aj1 Triage Assessment: 16:33 General: Appears in no apparent distress. comfortable, Behavior is calm, cooperative, aj1 appropriate for age. Pain: Complains of pain in suprapubic area, right lower quadrant and left lower quadrant. Neuro: Level of Consciousness is awake, alert, obeys commands. Cardiovascular: Patient's skin is warm and dry. Respiratory: Airway is patent Respiratory effort is even, unlabored, Respiratory pattern is regular, symmetrical. GI: Reports lower abdominal pain. : Reports vaginal bleeding that is bright red, heavy flow that has now resolved. Derm: No signs and/or symptoms reported regarding the dermatologic system. Skin is pink, warm \\T\\ dry. normal. Musculoskeletal: No signs and/or symptoms reported regarding the musculoskeletal system. Circulation, motion, and sensation intact. 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 - Social history:: Smoking status: Patient/guardian denies using tobacco. - Ebola Screening: : Patient denies travel to an Ebola-affected area in the 21 days before illness onset. Screenin:12 Abuse screen: Denies threats or abuse. Denies injuries from another. Nutritional rv screening: No deficits noted. Tuberculosis screening: No symptoms or risk factors identified. Fall Risk None identified. Assessment: 18:11 General: Appears in no apparent distress. comfortable, Behavior is calm, cooperative. rv Pain: Complains of pain in abdomen. Neuro: Level of Consciousness is awake, alert, obeys commands, Oriented to person, place, time, situation. GI: Bowel sounds present X 4 quads. Abd is soft and non tender X 4 quads. Derm: Skin is intact. Vital Signs: 16:33 BP 139 / 94; Pulse 78; Resp 18; Temp 98.2; Pulse Ox 100% on R/A; Weight 95.25 kg (R); aj1 Height 5 ft. 8 in. (172.72 cm) (R); 19:00 BP 123 / 89; Pulse 78; Resp 16; Pulse Ox 98% on R/A; rv 20:00 BP 131 / 93; Pulse 74; Resp 16; Pulse Ox 98% on R/A; rv 20:30 BP 124 / 86; Pulse 76; Resp 16; Pulse Ox 99% on R/A; rv 16:33 Body Mass Index 31.93 (95.25 kg, 172.72 cm) aj1 ED Course: 16:11 Patient arrived in ED. mr 16:33 Triage completed. aj1 16:33 Arm band placed on Patient placed in waiting room, Patient notified of wait time. aj1 18:04 Paul Sifuentes, RN is Primary Nurse. rv 18:12 Patient has correct armband on for positive identification. Bed in low position. Call rv light in reach. Pulse ox on. NIBP on. 18:29 Mickey Worthington NP is PHCP. pm1 18:29 Kaelyn Cortes MD is Attending Physician. pm1 19:01 Urine collected: clean catch specimen, clear, EKG done, by ED staff, reviewed by ms Kaelyn Cortes MD. 20:00 No provider procedures requiring assistance completed. Inserted saline lock: 20 gauge rv in right antecubital area, using aseptic technique. 20:45 IV discontinued, intact, bleeding controlled, No redness/swelling at site. Pressure rv dressing applied. Administered Medications: 20:00 Drug: Rocephin 1 grams Route: IV; Rate: calculated rate; Site: right antecubital; rv 20:42 Follow up: IV Status: Completed infusion rv Outcome: 19:24 Discharge ordered by MD. pm1 20:45 Discharged to home ambulatory. rv 20:45 Condition: good 20:45 Discharge instructions given to patient, Instructed on discharge instructions, follow up and referral plans. medication usage, Demonstrated understanding of instructions, follow-up care, medications, Prescriptions given X 1. 20:45 Patient left the ED. rv Signatures: Melissa Landers, RN RN aj1 Kia Adamson Maria ms Marinas, Patrick, AUTO OVERHAULER AUTO OVERHAULER pm1 Paul Sifuentes RN RN rv
[2019-02-20] MEDS ORDERED: CEFTRIAXONE/SWI 1gm 1 GM/10 ML SYR ONE (19:53)
[2019-02-20 21:22] VITALS: TEMP 98.2
[2019-02-20 21:24] VITALS: BP 124/86; O2SAT 99
--- NOTE | 2019-02-22 20:50 | EKG ---
Test Date: 2019-02-20 Test Time: 18:59:17 Supervisor Fertilizer: VARSHA MEASUREMENT RESULTS: Intervals: Rate: 63 IA: 196 QRSD: 76 QT: 362 QTc: 370 [place]: P: 33 IA: 196 QRS: 38 T: 33 INTERPRETIVE STATEMENTS: Normal sinus rhythm Anterior infarct, age undetermined Abnormal ECG Compared to ECG 02/01/2016 14:03:03 Myocardial infarct finding now present Electronically Signed On 02-22-19 20:47:03 SCHEDULER by Gregor Moe
== END 2019-02-20 20:45 | disposition home or self-care (01) ==
LOC: ER 16:07
DX: N39.0 Urinary tract infection, site not specified (principal); R07.9 Chest pain, unspecified; N93.9 Abnormal uterine and vaginal bleeding, unspecified
CPT/HCPCS: 36415; 80048; 80076; 81003; 81015; 81025; 83690; 84484; 85025; 87086; 87088; 93005; 96365; 99284; J0696

== ENCOUNTER 2019-05-17 14:13 | Emergency (ER) | payer SELFPAY ==
[2019-05-17 14:56] LABS: Urine Bacteria 20-50 /HPF (<20); Urine Culture Reflex Order REFLEXED; Urine Mucus 2+ /HPF (NONE SEEN)
--- NOTE | 2019-05-17 15:54 | ER ---
Nurse's Notes [facility] Name: Peng Preciado Age: 38 yrs Sex: Female : 1980 Arrival Date: 05/17/2019 Time: 14:14 Bed 28 Private MD: Diagnosis: Dysuria Presentation: 05/16 14:27 Chief complaint: Patient states: has had lower abd pain and mid abd pain x 2 days, also iw having pain with urination, no vomiting, diarrhea has resolved. Coronavirus screen: The patient has NOT traveled to a country currently being monitored by the [facility] within the last 14 days. Proceed with normal triage procedures. The patient has NOT had contact with any known and/or suspected case of coronavirus. Proceed with normal triage procedures. Ebola Screen: Patient negative for fever greater than or equal to 101.5 degrees Fahrenheit, and additional compatible Ebola Virus Disease symptoms Patient denies exposure to infectious person. Patient denies travel to an Ebola-affected area in the 21 days before illness onset. No symptoms or risks identified at this time. Initial Sepsis Screen: Does the patient meet any 2 criteria? No. Patient's initial sepsis screen is negative. Does the patient have a suspected source of infection? No. Patient's initial sepsis screen is negative. Risk Assessment: Do you want to hurt yourself or someone else? Patient reports no desire to harm self or others. 14:27 Method Of Arrival: Ambulatory iw 14:27 Acuity: SIMONE 3 iw Triage Assessment: 14:39 General: Appears in no apparent distress. comfortable, Behavior is calm, cooperative. ls4 Pain: Complains of pain in right lower quadrant Pain currently is 8 out of 10 on a pain scale. GI: Reports Pain is 8 out of 10 on a pain scale. tolerance of fluids, tolerance of food. : Reports burning with urination, urgency, urinary frequency, since 3 days. 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 - Social history:: Smoking status: Patient denies any tobacco usage or history of. Screenin:40 Abuse screen: Denies threats or abuse. Denies injuries from another. Nutritional ls4 screening: No deficits noted. Tuberculosis screening: No symptoms or risk factors identified. Fall Risk None identified. Assessment: 14:30 GI: Bowel sounds present X 4 quads. Abd is soft and non tender X 4 quads. Patient ls4 currently denies constipation, cramping, diarrhea, epigastric pain, intolerance of fluids, intolerance of food, nausea, vomiting. 14:30 Derm: Skin is pink, warm \T\ dry. ls4 15:30 Reassessment: Patient appears in no apparent distress at this time. Patient and/or ls4 family updated on plan of care and expected duration. Pain level reassessed. Patient is alert, oriented x 3, equal unlabored respirations, skin warm/dry/pink. 16:30 Reassessment: Patient appears in no apparent distress at this time. Patient and/or ls4 family updated on plan of care and expected duration. Pain level reassessed. Patient is alert, oriented x 3, equal unlabored respirations, skin warm/dry/pink. Vital Signs: 14:27 BP 141 / 88; Pulse 71; Resp 16 S; Temp 97.7; Pulse Ox 100% on R/A; Weight 99.79 kg; iw Height 5 ft. 9 in. (175.26 cm); Pain 8/10; 16:39 BP 134 / 78; Pulse 70; Resp 14; Temp 97.9; Pulse Ox 100% on R/A; Pain 3/10; ls4 14:27 Body Mass Index 32.49 (99.79 kg, 175.26 cm) iw ED Course: 14:14 Patient arrived in ED. ag5 14:28 Triage completed. iw 14:29 Arm band placed on. iw 14:30 Patient has correct armband on for positive identification. Bed in low position. Call ls4 light in reach. Side rails up X 1. 14:30 No provider procedures requiring assistance completed. Patient did not have IV access ls4 during this emergency room visit. 14:31 Shay Ellington PA is PHCP. cp 14:31 Paulino Cordero MD is Attending Physician. cp 14:39 Sienna Awad RN is Primary Nurse. ls4 15:01 Urine Culture Sent. ls4 Administered Medications: No medications were administered Outcome: 15:53 Discharge ordered by . cp 16:42 Discharged to home ambulatory. ls4 16:42 Condition: stable 16:42 Discharge instructions given to patient, family, Instructed on discharge instructions, follow up and referral plans. medication usage, Demonstrated understanding of instructions, follow-up care, medications. 16:43 Patient left the ED. ls4 Signatures: Hollie Prescott RN RN iw Shay Ellington PA PA cp Stewart, Lisa, RN RN ls4 Joshua Jaimes ag5 Corrections: (The following items were deleted from the chart) 16:43 14:29 Allergies: NKA; christine ls4
--- NOTE | 2019-05-17 15:54 | EDPHYS ---
Physician Documentation [facility] Name: Peng Preciado Age: 38 yrs Sex: Female : 1980 Arrival Date: 05/17/2019 Time: 14:14 Bed 28 Private MD: ED Physician Paulino Cordero HPI: 05/16 14:40 This 38 yrs old Black Female presents to ER via Ambulatory with complaints of Abdominal cp Pain, Infection. 14:41 The patient presents with urinary symptoms, dysuria. Onset: The symptoms/episode cp began/occurred 3 day(s) ago. Associated signs and symptoms: Pertinent negatives: constipation, diarrhea, fever, nausea, vomiting. Severity of symptoms: in the emergency department the symptoms are unchanged, despite home interventions. 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 - Social history:: Smoking status: Patient denies any tobacco usage or history of. ROS: 14:42 Eyes: Negative for injury, pain, redness, and discharge. cp 14:42 Constitutional: Negative for body aches, chills, fever, poor PO intake. 14:42 ENT: Negative for drainage from ear(s), ear pain, sore throat, difficulty swallowing, difficulty handling secretions. 14:42 Cardiovascular: Negative for chest pain, palpitations. 14:42 Respiratory: Negative for cough, shortness of breath, wheezing. 14:42 Abdomen/GI: Positive for abdominal pain, Negative for vomiting, diarrhea, constipation, anorexia. 14:42 : Positive for urinary symptoms, Negative for flank pain. 14:42 All other systems are negative. Exam: 14:44 Head/Face: Normocephalic, atraumatic. cp 14:44 Constitutional: The patient appears in no acute distress, alert, awake, comfortable, non-toxic, well developed, well nourished. 14:44 Eyes: Periorbital structures: appear normal, Conjunctiva: normal, no exudate, no injection, Sclera: no appreciated abnormality, Lids and lashes: appear normal, bilaterally. 14:44 ENT: External ear(s): are unremarkable, Nose: is normal, Mouth: Lips: moist, Oral mucosa: moist, Posterior pharynx: Airway: no evidence of obstruction, patent. 14:44 Chest/axilla: Inspection: normal. 14:44 Cardiovascular: Rate: normal, Rhythm: regular. 14:44 Respiratory: the patient does not display signs of respiratory distress, Respirations: normal, no use of accessory muscles, labored breathing, is not present. 14:44 Abdomen/GI: Inspection: abdomen appears normal, Palpation: soft, in all quadrants, mild abdominal tenderness, in the right lower quadrant, rebound tenderness, is not appreciated, voluntary guarding, is not appreciated. 14:44 Back: CVA tenderness, is absent. Vital Signs: 14:27 BP 141 / 88; Pulse 71; Resp 16 S; Temp 97.7; Pulse Ox 100% on R/A; Weight 99.79 kg; iw Height 5 ft. 9 in. (175.26 cm); Pain 8/10; 16:39 BP 134 / 78; Pulse 70; Resp 14; Temp 97.9; Pulse Ox 100% on R/A; Pain 3/10; ls4 14:27 Body Mass Index 32.49 (99.79 kg, 175.26 cm) iw MDM: 14:33 Patient medically screened. cp 15:00 Differential diagnosis: pelvic inflammatory disease, urinary tract infection, cp vaginosis, kidney stone. 15:52 Data reviewed: vital signs, nurses notes, lab test result(s). cp 15:52 Counseling: I had a detailed discussion with the patient and/or guardian regarding: the cp historical points, exam findings, and any diagnostic results supporting the discharge/admit diagnosis, lab results, to return to the emergency department if symptoms worsen or persist or if there are any questions or concerns that arise at home. 05/16 14:31 Order name: Urine Microscopic Only; Complete Time: 15:51 cp 05/16 15:52 Interpretation: Normal except: UWBC 20-50; URBC 5-10; UBACT 20-50; SQEPI 5-10. cp 05/16 15:01 Order name: Urine Culture EDVT 05/16 14:31 Order name: Urine Dipstick-Ancillary (obtain specimen); Complete Time: 15:01 cp 05/16 14:31 Order name: Urine Test (obtain specimen); Complete Time: 15:01 cp Administered Medications: No medications were administered Disposition: 17:07 Co-signature as Attending Physician, Paulino Cordero MD. rn Disposition: 05/17/19 15:53 Discharged to Home. Impression: Dysuria. - Condition is Stable. - Discharge Instructions: Dysuria. - Prescriptions for Pyridium 200 mg Oral Tablet - take 1 tablet by ORAL route every 8 hours for 2 days; 6 tablet. Macrobid 100 mg Oral Capsule - take 1 capsule by ORAL route every 12 hours for 7 days; 14 capsule. - Medication Reconciliation Form, Thank You Letter, Antibiotic Education, Prescription Opioid Use form. - Follow up: Private Physician; When: 2 - 3 days; Reason: Worsening of condition. - Problem is new. - Symptoms are unchanged. Signatures: Dispatcher [employer] EDHollie Hwang RN RN iw Nieto, Roman, MD MD rn Page, Corey, PA PA cp Stewart, Lisa RN RN ls4 Corrections: (The following items were deleted from the chart) 16:43 14:29 Allergies: NKA; ls4 16:43 15:53 05/17/2019 15:53 Discharged to Home. Impression: Dysuria. Condition is Stable. ls4 Forms are Medication Reconciliation Form, Thank You Letter, Antibiotic Education, Prescription Opioid Use. Follow up: Private Physician; When: 2 - 3 days; Reason: Worsening of condition. Problem is new. Symptoms are unchanged. cp
[2019-05-17 16:57] VITALS: O2SAT 100
[2019-05-17 16:58] VITALS: BP 134/78; TEMP 97.9
[2019-05-17 20:25] LABS: Urine Blood 1+ (NEG); Urine Glucose TRACE (NEG); Urine Protein 2+ (NEG); Urine Specific Gravity >1.030 (1.005-1.030); Urine pH 5.5 (5.0-7.0)
[2019-05-17 20:25] LABS: Urine Specific Gravity >1.030 (1.005-1.030)
== END 2019-05-17 16:43 | disposition home or self-care (01) ==
LOC: ER 14:13
DX: R30.0 Dysuria (principal); I10 Essential (primary) hypertension; Z88.1 Allergy status to other antibiotic agents
CPT/HCPCS: 81003; 81015; 81025; 87077; 87086; 87088; 87186; 99283

== ENCOUNTER 2019-07-29 21:52 | Emergency (ER) | payer SELFPAY ==
[2019-07-29] MEDS ORDERED: NA CHLORIDE 0.9% 1,000 ML ONE (22:40)
[2019-07-29 22:54] LABS: Urine Blood 2+ (NEG); Urine Glucose NEGATIVE (NEG); Urine Protein TRACE (NEG); Urine Specific Gravity >1.030 (1.005-1.030)
[2019-07-29 23:11] LABS: Urine Culture Reflex Order NOT NEEDED
[2019-07-29 23:12] LABS: Urine Bacteria <20 /HPF (<20); Urine RBC <5 /HPF (NONE SEEN)
[2019-07-29 23:38] LABS: Absolute Lymphocytes (CBC) 1.7 K/uL (0.7-4.9); Hematocrit 33.8 % (36.0-45.0); Lymphocytes % 26.4 % (15.3-44.8); MPV 9.7 fL (7.6-11.3); RBC Red Blood Cell Count 3.84 M/uL (3.86-4.86)
[2019-07-29 23:39] LABS: Protime INR 1.01
[2019-07-29 23:54] LABS: ALT/SGPT 16 U/L (12-78); AST/SGOT 13 U/L (15-37); Albumin 3.3 g/dL (3.4-5.0); Alkaline Phosphatase 98 U/L (45-117); BUN Blood Urea Nitrogen 11 mg/dL (7-18); Bicarbonate 25 mmol/L (21-32); Bilirubin Direct < 0.1 mg/dL (0-0.2); Bilirubin Total 0.2 mg/dL (0.2-1.0); Glucose Level 91 mg/dL (74-106); Magnesium 1.9 mg/dL (1.8-2.4); NT PRO-BNP 20 pg/mL (<125); Potassium 3.7 mmol/L (3.5-5.1); Protein, Total 7.5 g/dL (6.4-8.2); Sodium Level 140 mmol/L (136-145); Troponin (Emerg Dept Use Only) < 0.02 ng/mL (0.0-0.045)
[2019-07-30] MEDS ORDERED: CEFTRIAXONE/SWI 1gm 1 GM/10 ML SYR ONE (00:33)
[2019-07-30 01:13] VITALS: TEMP 99.4
[2019-07-30 01:23] VITALS: BP 104/88; O2SAT 100
--- NOTE | 2019-07-30 07:37 | RAD REPORT ---
EXAM DESCRIPTION: RAD - Chest Single View - 07/29/2019 11:49 pm CLINICAL HISTORY: shortness of breath, weakness COMPARISON: Two view chest February 2016 TECHNIQUE: AP portable chest image was obtained 07/29/2019 11:49 pm . FINDINGS: Lungs are clear. Heart and vasculature are normal. No measurable pleural effusion and no p neumothorax. No acute bony abnormality seen. No acute aortic findings suspected. IMPRESSION: No acute cardiopulmonary process. No suspicious change from comparison.
--- NOTE | 2019-07-31 13:00 | EKG ---
Test Date: 2019-07-29 Test Time: 22:32:57 Automobile Designer: RR MEASUREMENT RESULTS: Intervals: Rate: 72 [place]: 160 QRSD: 68 QT: 346 QTc: 378 [place]: P: 55 [place]: 160 QRS: 31 T: 28 INTERPRETIVE STATEMENTS: Normal sinus rhythm Cannot rule out Anterior infarct, age undetermined Abnormal ECG Compared to ECG 02/20/2019 18:59:17 No significant changes Electronically Signed On 07-31-19 13:00:19 CDT by Gregor Moe
--- NOTE | 2019-08-02 16:37 | ER ---
Nurse's Notes [facility] Name: Peng Preciado Age: 38 yrs Sex: Female : 1980 Arrival Date: 07/29/2019 Time: 21:53 Bed 7 Private MD: Diagnosis: Urinary tract infection, site not specified;Dental Pain;Abnormal uterine and vaginal bleeding, unspecified Presentation: 07/28 22:03 Chief complaint: Patient states: fatigue and weakness. Reports blurred vision all day ll1 today. A friend thought her eyes were dilated on a video call earlier today. States she has right jaw pain that she knows she needs dental work on. "I think the infection is draining down into my body", pointing to right jaw down to right neck area. Reports chest pain and upper abdominal pain. + vaginal bleeding. Coronavirus screen: Proceed with normal triage. Patient denies a cough. Patient denies shortness of breath or difficulty breathing. Patient denies measured and/or subjective temperature greater than 100.4F prior to today's visit. Patient denies travel on a cruise ship or to a country the [facility] currently lists as an affected area. Patient denies contact with known and/or suspected case of COVID-19. Ebola Screen: Patient denies travel to an Ebola-affected area in the 21 days before illness onset. Initial Sepsis Screen: Does the patient meet any 2 criteria? HR > 90 bpm. No. Patient's initial sepsis screen is negative. Does the patient have a suspected source of infection? No. Patient's initial sepsis screen is negative. Risk Assessment: Do you want to hurt yourself or someone else? Patient reports no desire to harm self or others. Onset of symptoms was July 29, 2019. 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 - Social history:: Smoking status: Patient denies any tobacco usage or history of. Patient/guardian denies using alcohol, street drugs, tobacco products. Screenin:31 Abuse screen: Denies threats or abuse. Denies injuries from another. Nutritional rr5 screening: No deficits noted. Tuberculosis screening: No symptoms or risk factors identified. Fall Risk IV access (20 points). Total Burnette Fall Scale indicates No Risk (0-24 pts). Assessment: 22:10 General: Appears in no apparent distress. uncomfortable, Behavior is calm, cooperative, rr5 appropriate for age. 22:10 Pain: Complains of pain in lower right second molar and lower right third molar Pain rr5 radiates to head Pain currently is 10 out of 10 on a pain scale. Quality of pain is described as aching, Pain began gradually, 2-3 days ago. Is intermittent. Neuro: Level of Consciousness is awake, alert, obeys commands, Oriented to person, place, time, situation, Reports weakness in body. Cardiovascular: Capillary refill < 3 seconds Patient's skin is warm and dry. Respiratory: Airway is patent Respiratory effort is even, unlabored, Respiratory pattern is regular, symmetrical. GI: Abdomen is round non-distended, obese, Reports lower abdominal pain, upper abdominal pain, nausea. : Reports vaginal bleeding that is. EENT: Absence of teeth noted - lower right second molar (#31) and lower right third molar (#32) Reports blurred vision. Derm: Skin is intact, is healthy with good turgor, Skin temperature is warm. Musculoskeletal: Circulation, motion, and sensation intact. Capillary refill < 3 seconds. 23:10 Reassessment: Patient appears in no apparent distress at this time. Patient is alert, rr5 oriented x 3, equal unlabored respirations, skin warm/dry/pink. 07/29 00:46 Reassessment: Patient appears in no apparent distress at this time. Patient is alert, rr5 oriented x 3, equal unlabored respirations, skin warm/dry/pink. discharge instruction given and explained without complaints made. Patient states symptoms have improved. Vital Signs: 07/28 22:03 BP 151 / 110; Pulse 99; Resp 18; Temp 99.4; Pulse Ox 99% ; Pain 8/10; ll1 23:34 BP 145 / 89; Pulse 76; Resp 16; Pulse Ox 99% ; rr5 07/29 00:30 BP 104 / 88; Pulse 77; Resp 16; Pulse Ox 100% ; rr5 ED Course: 07/28 21:53 Patient arrived in ED. cl3 21:56 Jon Gaitan, RN is Primary Nurse. rr5 22:07 Triage completed. ll1 22:08 Arm band placed on Patient placed in an exam room, on a stretcher. ll1 22:12 Erick Camargo PA is PHCP. [facility] 22:12 tSephane Quiroz MD is Attending Physician. [facility] 22:31 Patient has correct armband on for positive identification. Placed in gown. Bed in low rr5 position. Call light in reach. threat monitoring analyst on. Pulse ox on. NIBP on. 22:31 Urine collected: clean catch specimen, clear, EKG done, by ED staff, reviewed by Erick DAMON. 23:19 Inserted saline lock: 20 gauge in left forearm, using aseptic technique. tt3 23:28 No provider procedures requiring assistance completed. Inserted saline lock: 22 gauge rr5 in right hand, using aseptic technique. Blood collected. 23:49 XRAY Chest (1 view) In Process Unspecified. EDMS 07/29 00:46 IV discontinued, intact, bleeding controlled, No redness/swelling at site. Pressure rr5 dressing applied. Administered Medications: 07/28 22:58 Drug: NS 0.9% 1000 ml Route: IV; Rate: 1 bolus; Site: left antecubital; rr5 07/29 00:00 Follow up: Response: No adverse reaction; IV Status: Completed infusion; IV Intake: rr5 1000ml 00:30 Drug: Rocephin 1 grams Route: IV; Rate: calculated rate; Site: right hand; rr5 01:00 Follow up: Response: No adverse reaction; IV Status: Completed infusion; IV Intake: [id number] Intake: 00:00 IV: 1000ml; Total: 1000ml. rr5 01:00 IV: 10ml; Total: 1010ml. rr5 Outcome: 00:35 Discharge ordered by . [facility] 00:46 Discharged to home ambulatory. rr5 00:46 Condition: stable 00:46 Discharge instructions given to patient, Instructed on discharge instructions, follow up and referral plans. medication usage, Demonstrated understanding of instructions, follow-up care, medications, Prescriptions given X 2. 00:58 Patient left the ED. rr5 Signatures: Dispatcher [employer] EDMS Erick Camargo PA PA jmm Roque Jon, RN RN rr5 Emelyn Toro cl3 Silvia Toro RN RN ll1 Timmy Root tt3 Corrections: (The following items were deleted from the chart) 07/28 22:30 22:03 Chief complaint: Patient states: Reports blurred vision all day today. A friend ll1 thought her eyes were dilated on a video call today. States she has right jaw pain that she needs dental work on. "I think the infection is draining down into my body", pointing to right jaw down to right neck area. ll1 22:33 22:03 Chief complaint: Patient states: Reports blurred vision all day today. A friend ll1 thought her eyes were dilated on a video call today. States she has right jaw pain that she needs dental work on. "I think the infection is draining down into my body", pointing to right jaw down to right neck area. ll1
--- NOTE | 2019-08-02 16:38 | EDPHYS ---
Physician Documentation [facility] Name: Peng Preciado Age: 38 yrs Sex: Female : 1980 Arrival Date: 07/29/2019 Time: 21:53 Bed 7 Private MD: ED Physician Stephane Quiroz HPI: 07/28 22:36 This 38 yrs old Black Female presents to ER via Ambulatory with complaints of General jmm Weakness. 22:36 This is a 38 year old female with a history of htn, that presents to the ED with jmm complaints of fatigue beginning today with blurred vision, shortness of breath. Patient states she has had ongoing dental issues and has been prescribed multiple abx, patient also complains of shortness of breath. Patient states she has had similar episodes with infections leading to sepsis. Patient also complains of heavy vaginal bleeding with her most recent cycle. . 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 - Social history:: Smoking status: Patient denies any tobacco usage or history of. Patient/guardian denies using alcohol, street drugs, tobacco products. ROS: 22:36 Cardiovascular: Negative for chest pain, palpitations, and edema. jmm 22:36 Constitutional: Positive for body aches, chills, fatigue, fever, malaise. 22:36 Respiratory: Positive for shortness of breath. 22:36 Abdomen/GI: Negative for abdominal pain. 22:36 Back: Positive for flank pain, bilaterally. 22:36 Neuro: Positive for weakness. 22:36 All other systems are negative. Exam: 22:36 Constitutional: This is a well developed, well nourished patient who is awake, alert, jmm and in no acute distress. Head/Face: atraumatic. Eyes: EOMI, no conjunctival erythema appreciated ENT: Moist Mucus Membranes Neck: Trachea midline, Supple Chest/axilla: Normal chest wall appearance and motion. Cardiovascular: Regular rate and rhythm. No edema appreciated Respiratory: Normal respirations, no respiratory distress appreciated Abdomen/GI: Non distended, soft Back: Normal ROM Skin: General appearance color normal MS/ Extremity: Moves all extremities, no obvious deformities appreciated, no edema noted to the lower extremities Neuro: Awake and alert, normal gait Psych: Behavior is normal, Mood is normal, Patient is cooperative and pleasant Vital Signs: 22:03 BP 151 / 110; Pulse 99; Resp 18; Temp 99.4; Pulse Ox 99% ; Pain 8/10; ll1 23:34 BP 145 / 89; Pulse 76; Resp 16; Pulse Ox 99% ; rr5 07/29 00:30 BP 104 / 88; Pulse 77; Resp 16; Pulse Ox 100% ; rr5 MDM: 07/28 22:13 Patient medically screened. [facility] 07/29 00:32 Data reviewed: vital signs, nurses notes. Counseling: I had a detailed discussion with lindsay the patient and/or guardian regarding: the historical points, exam findings, and any diagnostic results supporting the discharge/admit diagnosis, lab results, radiology results, the need for outpatient follow up, to return to the emergency department if symptoms worsen or persist or if there are any questions or concerns that arise at home. ED course: Patient states symptoms have improved in the ED. 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 patient understood and agrees with the plan of care. . 07/28 22:22 Order name: Basic Metabolic Panel; Complete Time: 23:54 [facility] 07/28 22:22 Order name: CBC with Diff; Complete Time: 23:44 [facility] 07/28 22:22 Order name: LFT's; Complete Time: 23:54 [facility] 07/28 22:22 Order name: Magnesium; Complete Time: 23:54 [facility] 07/28 22:22 Order name: NT PRO-BNP; Complete Time: 23:54 [facility] 07/28 22:22 Order name: PT-INR; Complete Time: 23:44 [facility] 07/28 22:22 Order name: Troponin (emerg Dept Use Only); Complete Time: 23:54 [facility] 07/28 22:22 Order name: XRAY Chest (1 view) [facility] 07/28 22:22 Order name: Urine Microscopic Only; Complete Time: 23:15 [facility] 07/28 22:22 Order name: Urine Culture [facility] 07/28 22:27 Order name: Procalcitonin; Complete Time: 00:32 [facility] 07/28 22:27 Order name: Lactate; Complete Time: 23:53 [facility] 07/28 22:31 Order name: Urine Dipstick--Ancillary (enter results); Complete Time: :58 vt 07/28 22:31 Order name: Urine --Ancillary (enter results); Complete Time: :58 vt 07/28 22:22 Order name: EKG; Complete Time: 22:24 [facility] 07/28 22:22 Order name: Cardiac monitoring; Complete Time: 22:30 [facility] 07/28 22:22 Order name: EKG - Nurse/Tech; Complete Time: : [facility] 07/28 22:22 Order name: IV Saline Lock; Complete Time: 23:28 [facility] 07/28 22:22 Order name: Labs collected and sent; Complete Time: :28 [facility] 07/28 22:22 Order name: O2 Per Protocol; Complete Time: :31 [facility] 07/28 22:22 Order name: O2 Sat Monitoring; Complete Time: : [facility] 07/28 22:22 Order name: Urine Dipstick-Ancillary (obtain specimen); Complete Time: 22:30 [facility] Administered Medications: 07/28 22:58 Drug: NS 0.9% 1000 ml Route: IV; Rate: 1 bolus; Site: left antecubital; rr5 07/29 00:00 Follow up: Response: No adverse reaction; IV Status: Completed infusion; IV Intake: rr5 1000ml 00:30 Drug: Rocephin 1 grams Route: IV; Rate: calculated rate; Site: right hand; rr5 Disposition: 07/30/19 00:35 Discharged to Home. Impression: Urinary tract infection, site not specified, Dental Pain, Abnormal uterine and vaginal bleeding, unspecified. - Condition is Stable. - Discharge Instructions: Abnormal Uterine Bleeding, Dental Pain, Urinary Tract Infection, Adult. - Prescriptions for cefdinir 300 mg Oral capsule - take 1 capsule by ORAL route every 12 hours for 10 days; 20 capsule. orphenadrine citrate 100 mg Oral Tablet Sustained Release - take 1 tablet by ORAL route 2 times per day As needed; 20 tablet. - Medication Reconciliation Form, Thank You Letter, Antibiotic Education, Prescription Opioid Use form. - Follow up: Private Physician; When: 2 - 3 days; Reason: Recheck today's complaints, Continuance of care, Re-evaluation by your physician. Signatures: Dispatcher [employer] [facility] Erick Camargo PA PA jmm Roque, Raymond RN RN rr5 Silvia Toro RN RN ll1 Corrections: (The following items were deleted from the chart) 00:08 07/28 23:48 Head Brain Wo Cont+CT.RAD.BRZ ordered. [facility] 07/29 00:58 00:35 07/30/2019 00:35 Discharged to Home. Impression: Urinary tract infection, site rr5 not specified; Dental Pain; Abnormal uterine and vaginal bleeding, unspecified. Condition is Stable. Forms are Medication Reconciliation Form, Thank You Letter, Antibiotic Education, Prescription Opioid Use. Follow up: Private Physician; When: 2 - 3 days; Reason: Recheck today's complaints, Continuance of care, Re-evaluation by your physician. lindsay
== END 2019-07-30 00:58 | disposition home or self-care (01) ==
LOC: ER 21:52
DX: N39.0 Urinary tract infection, site not specified (principal); K08.89 Other specified disorders of teeth and supporting structures; N93.9 Abnormal uterine and vaginal bleeding, unspecified; I10 Essential (primary) hypertension; Z88.1 Allergy status to other antibiotic agents
CPT/HCPCS: 36415; 71045; 80048; 80076; 81003; 81015; 81025; 83605; 83735; 83880; 84145; 84484; 85025; 85610; 87086; 87088; 93005; 96361; 96365; 99284; J0696; J7030

== ENCOUNTER 2019-09-29 18:38 | Emergency (ER) | payer SELFPAY ==
[2019-09-29] MEDS ORDERED: NA CHLORIDE 0.9% 1,000 ML ONE (20:10)
[2019-09-29 20:56] LABS: Urine Blood NEGATIVE (NEG); Urine Glucose NEGATIVE (NEG); Urine Protein 1+ (NEG); Urine Specific Gravity 1.025 (1.005-1.030)
--- NOTE | 2019-09-29 21:03 | RAD REPORT ---
EXAM DESCRIPTION: RAD - Chest Single View - 09/29/2019 8:37 pm CLINICAL HISTORY: COUGH COMPARISON: Portable July 28 TECHNIQUE: AP portable chest image was obtained 09/29/2019 8:37 pm . FINDINGS: Lungs are clear. Overlying soft tissues accentuate lung base markings. Heart and vasculatu re are normal. No measurable pleural effusion and no pneumothorax. No acute bony abnormality seen. No acute aortic findings suspected. IMPRESSION: No acute cardiopulmonary process.
[2019-09-29 21:23] LABS: Absolute Lymphocytes (CBC) 0.9 K/uL (0.7-4.9); Basophils % 0.5 % (0-1.3); Hematocrit 40.7 % (36.0-45.0); Lymphocytes % 13.6 % (15.3-44.8); MPV 9.7 fL (7.6-11.3); RBC Red Blood Cell Count 4.75 M/uL (3.86-4.86)
[2019-09-29 21:34] LABS: BUN Blood Urea Nitrogen 8 mg/dL (7-18); Bicarbonate 27 mmol/L (21-32); Glucose Level 78 mg/dL (74-106); Potassium 3.8 mmol/L (3.5-5.1); Sodium Level 139 mmol/L (136-145)
--- NOTE | 2019-09-29 21:57 | EDPHYS ---
Physician Documentation [facility] Name: Peng Preciado Age: 39 yrs Sex: Female : 1980 Arrival Date: 09/29/2019 Time: 18:41 Bed 28 Private MD: ED Physician Paulino Cordero HPI: 09/28 20:45 This 39 yrs old Black Female presents to ER via Ambulatory with complaints of Cough, rn Dizziness, Doesn't Feel Right. 20:45 The patient or guardian reports cough, flu symptoms. Onset: The symptoms/episode rn began/occurred 3 day(s) ago. Severity of symptoms: At their worst the symptoms were mild, in the emergency department the symptoms are unchanged. Modifying factors: The symptoms are alleviated by nothing, the symptoms are aggravated by nothing. The patient has not experienced similar symptoms in the past. Reports multiple family members + for COVID, now for last 3-4 days she has been experiencing fever/chills/headache/fatigue/loss of taste and smell/abd cramping/diarrhea/generalized weakness. No heart or lung problems, reports not really sob, just doesn't feel well.. 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 - Social history:: Smoking status: Patient denies any tobacco usage or history of. - Family history:: not pertinent. - Hospitalizations: : No recent hospitalization is reported. 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 Ambulatory to room without dyspnea or assistance. Head/Face: Normocephalic, atraumatic. Eyes: Pupils equal round and reactive to light, extra-ocular motions intact. Lids and lashes normal. Conjunctiva and sclera are non-icteric and not injected. Periorbital areas with no swelling, redness, or edema. Cardiovascular: Regular rate and rhythm Respiratory: Speaking full sentences. No increased work of breathing, no retractions or nasal flaring. Skin: Dry, normal color MS/ Extremity: No cyanosis, moves all 4 ext Neuro: Awake and alert, GCS 15, oriented to person, place, time, and situation. Cerebellar exam normal. Normal gait. Vital Signs: 19:02 BP 130 / 92; Pulse 104; Resp 18 S; Temp 98.1(TE); Pulse Ox 98% on R/A; Weight 90.72 kg ca1 (R); Height 5 ft. 8 in. (172.72 cm) (R); 20:42 BP 129 / 91; Pulse 86; Resp 18; Temp 98.3(O); Pulse Ox 98% on R/A; Pain 7/10; ks7 21:38 BP 129 / 85; Pulse 82; Resp 18; Pulse Ox 100% on R/A; Pain 4/10; ks7 22:06 BP 132 / 92; Pulse 83; Resp 18; Temp 98(TE); Pulse Ox 100% on R/A; Pain 3/10; ks7 19:02 Body Mass Index 30.41 (90.72 kg, 172.72 cm) ca1 MDM: 19:25 Patient medically screened. rn 21:55 Differential Diagnosis: Bronchitis Upper Respiratory Infection Viral Syndrome Pneumonia rn Other COVID-19. Data reviewed: vital signs, nurses notes, lab test result(s), radiologic studies, plain films, and as a result, I will discharge patient. Counseling: I had a detailed discussion with the patient and/or guardian regarding: the historical points, exam findings, and any diagnostic results supporting the discharge/admit diagnosis, lab results, radiology results, the need for outpatient follow up, to return to the emergency department if symptoms worsen or persist or if there are any questions or concerns that arise at home. Special discussion: I discussed with the patient/guardian in detail that at this point there is no indication for admission to the hospital. It is understood, however, that if the symptoms persist or worsen the patient needs to return immediately for re-evaluation. ED course: Pt most likely with COVID-19, no oxygen requirement, normal CXR, will dc home with return precautions and isolation. Will given abx for tooth infection since she is unable to f/u with her dentist and now liekly COVID positive and wont be able to get in.. 09/28 19:41 Order name: COVID-19 rn 09/28 19:41 Order name: CBC with Diff; Complete Time: 21:48 09/28 19:41 Order name: XRAY Chest (1 view); Complete Time: 21:11 09/28 19:41 Order name: Basic Metabolic Panel; Complete Time: 21:48 09/28 20:53 Order name: Urine Dipstick--Ancillary (enter results); Complete Time: 21:11 [facility] 09/28 20:53 Order name: Urine --Ancillary (enter results); Complete Time: 21:11 [facility] 09/28 19:41 Order name: Droplet/Contact Precautions; Complete Time: 20:43 09/28 19:41 Order name: Labs collected and sent rn 09/28 19:41 Order name: Notify Health Dept [phone]/ 09/28 19:41 Order name: O2 Per Protocol; Complete Time: 20:43 09/28 19:41 Order name: IV Start; Complete Time: 21:14 rn Administered Medications: Discontinued: NS 0.9% 1000 ml IV at 1000 ml once 21:00 Drug: NS 0.9% 1000 ml Route: IV; Rate: 1000 ml; Site: right hand; ks7 Disposition: 09/29/19 21:56 Discharged to Home. Impression: Coronavirus infection, unspecified. - Condition is Stable. - Discharge Instructions: COVID-19. - Prescriptions for Clindamycin HCl 300 mg Oral Capsule - take 1 capsule by ORAL route every 6 hours for 10 days; 40 capsule. - Medication Reconciliation Form, Thank You Letter, Antibiotic Education, Prescription Opioid Use form. - Follow up: Private Physician; When: As needed; Reason: Recheck today's complaints, Re-evaluation by your physician. - Problem is new. - Symptoms are unchanged. Signatures: Dispatcher [employer] EDPaulino Gale MD MD rn Raúlob, Lupe RN RN Patricia Lopez RN RN ks7 Corrections: (The following items were deleted from the chart) 22:27 21:56 09/29/2019 21:56 Discharged to Home. Impression: Coronavirus infection, ks7 unspecified. Condition is Stable. Forms are Medication Reconciliation Form, Thank You Letter, Antibiotic Education, Prescription Opioid Use. Follow up: Private Physician; When: As needed; Reason: Recheck today's complaints, Re-evaluation by your physician. Problem is new. Symptoms are unchanged. rn
--- NOTE | 2019-09-29 21:57 | ER ---
Nurse's Notes [facility] Name: Peng Preciado Age: 39 yrs Sex: Female : 1980 Arrival Date: 09/29/2019 Time: 18:41 Bed 28 Private MD: Diagnosis: Coronavirus infection, unspecified Presentation: 09/28 19:02 Chief complaint: Patient states: Burning with urination, Urinary urgency and frequency ca1 x 4 days. Cough, can't smell, can't taste, bodyaches and chills x 4 days. Fever and headaches, nausea. Coronavirus screen: Patient reports a cough. Patient denies shortness of breath or difficulty breathing. Patient reports a measured and/or subjective temperature greater than 100.4F. Patient denies travel on a cruise ship or to a country the [facility] currently lists as an affected area. Patient reports contact with known and/or suspected case of COVID-19. Patient was placed back in the lobby due to no available rooms at this time. Patient was instructed to always wear their mask and to isolate themselves as much as possible from others in the lobby. Mother was tested positive for Covid-19, her family tested positive for Covid. Ebola Screen: Patient negative for fever greater than or equal to 101.5 degrees Fahrenheit, and additional compatible Ebola Virus Disease symptoms Patient denies exposure to infectious person. Patient denies travel to an Ebola-affected area in the 21 days before illness onset. No symptoms or risks identified at this time. Initial Sepsis Screen: Does the patient meet any 2 criteria? No. Patient's initial sepsis screen is negative. Does the patient have a suspected source of infection? No. Patient's initial sepsis screen is negative. Risk Assessment: Do you want to hurt yourself or someone else? Patient reports no desire to harm self or others. Onset of symptoms was September 29, 2019. 19:02 Method Of Arrival: Ambulatory ca1 19:02 Acuity: SIMONE 3 ca1 Triage Assessment: 19:44 General: Appears uncomfortable, obese, Behavior is calm, cooperative. Pain: Complains ks7 of pain in back and pelvis Pain currently is 8 out of 10 on a pain scale. Quality of pain is described as burning, sharp, Is intermittent. 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 - Social history:: Smoking status: Patient denies any tobacco usage or history of. - Family history:: not pertinent. - Hospitalizations: : No recent hospitalization is reported. Screenin:45 Abuse screen: Denies threats or abuse. Denies injuries from another. Nutritional ks7 screening: No deficits noted. Tuberculosis screening: No symptoms or risk factors identified. Fall Risk None identified. Assessment: 19:47 General: Reports fatigue for >3 days, pt states she has had low grad fever, cough, SOB, ks7 GARCIA, body aches for a few days. pt mother tested positive for Covid on Friday. pt's children were with their grandma with possible covid spread/exposure between family members. pt aaox4 able to ambulate independently, CARD. Pain: Complains of pain in generalized body aches, GARCIA Pain currently is 8 out of 10 on a pain scale. Quality of pain is described as aching, Pain began 2-3 days ago. 21:45 Reassessment: Patient is alert, oriented x 3, equal unlabored respirations, skin ks7 warm/dry/pink. 22:07 General: Appears in no apparent distress. Behavior is calm, cooperative, pt in room ks7 talking on her cell phone, laughing, does not appear to be in pain. Vital Signs: 19:02 BP 130 / 92; Pulse 104; Resp 18 S; Temp 98.1(TE); Pulse Ox 98% on R/A; Weight 90.72 kg ca1 (R); Height 5 ft. 8 in. (172.72 cm) (R); 20:42 BP 129 / 91; Pulse 86; Resp 18; Temp 98.3(O); Pulse Ox 98% on R/A; Pain 7/10; ks7 21:38 BP 129 / 85; Pulse 82; Resp 18; Pulse Ox 100% on R/A; Pain 4/10; ks7 22:06 BP 132 / 92; Pulse 83; Resp 18; Temp 98(TE); Pulse Ox 100% on R/A; Pain 3/10; ks7 19:02 Body Mass Index 30.41 (90.72 kg, 172.72 cm) ca1 ED Course: 18:41 Patient arrived in ED. ag5 19:05 Triage completed. ca1 19:05 Arm band placed on right wrist. ca1 19:25 Paulino Cordero MD is Attending Physician. rn 19:40 Patricia Duke, VIRGIE is Primary Nurse. ks7 19:45 Patient has correct armband on for positive identification. Bed in low position. Side ks7 rails up X2. 19:45 No provider procedures requiring assistance completed. ks7 19:47 Resting quietly. ks7 20:38 XRAY Chest (1 view) In Process Unspecified. EDMS 20:42 Missed attempt(s): 22 gauge in right forearm. ks7 20:43 COVID-19 Sent. ks7 21:14 Inserted saline lock: 20 gauge in right hand, using aseptic technique. ks7 22:25 IV discontinued, intact, bleeding controlled, No redness/swelling at site. Pressure ks7 dressing applied. Administered Medications: Discontinued: NS 0.9% 1000 ml IV at 1000 ml once 21:00 Drug: NS 0.9% 1000 ml Route: IV; Rate: 1000 ml; Site: right hand; ks7 Outcome: 21:56 Discharge ordered by . rn 22:25 Discharged to home ambulatory. ks7 22:25 Condition: good 22:25 Discharge instructions given to patient, Instructed on discharge instructions, medication usage, Demonstrated understanding of instructions, medications, Prescriptions given X 1. 22:27 Patient left the ED. ks7 Signatures: Dispatcher [employer] EDWA Paulino Cordero MD MD rn Acob, Cheryl RN RN ca1 Joshua Jaimes ag5 Patricia Duke, VIRGIE RN ks7 Corrections: (The following items were deleted from the chart) 19:06 19:02 Chief complaint: Patient states: Burning with urination, Urinary urgency and ca1 frequency x 4 days. Cough, can't smell, can't taste, bodyaches and chills x 4 days. Fever and headaches. ca1 19:50 19:45 General: Reports pt reports burning pain with urination. pt states R flank pain ks7 and lower back pain started today. ks7
[2019-09-29 22:47] VITALS: O2SAT 100
[2019-09-29 22:49] VITALS: BP 132/92; TEMP 98
== END 2019-09-29 22:27 | disposition home or self-care (01) ==
LOC: ER 18:38
DX: U07.1 COVID-19 (principal); I10 Essential (primary) hypertension; Z88.1 Allergy status to other antibiotic agents
CPT/HCPCS: 36415; 71045; 80048; 81003; 81025; 85025; J7030

== ENCOUNTER 2019-11-17 06:42 | Emergency (ER) | payer SELFPAY ==
[2019-11-17 07:45] LABS: Urine Blood 1+ (NEG); Urine Glucose NEGATIVE (NEG); Urine Protein 1+ (NEG); Urine Specific Gravity >1.030 (1.005-1.030); Urine pH 5.5 (5.0-7.0)
[2019-11-17 07:47] LABS: Absolute Lymphocytes (CBC) 1.6 K/uL (0.7-4.9); Basophils % 0.8 % (0-1.3); Hematocrit 34.7 % (36.0-45.0); Lymphocytes % 19.9 % (15.3-44.8); MPV 9.5 fL (7.6-11.3); RBC Red Blood Cell Count 4.09 M/uL (3.86-4.86)
[2019-11-17] MEDS ORDERED: NA CHLORIDE 0.9% 500 ML ONE (07:49)
[2019-11-17] MEDS ORDERED: FLEET ENEMA ADULT PR ONE (07:49)
[2019-11-17 07:57] LABS: Urine Bacteria 20-50 /HPF (<20)
[2019-11-17 07:58] LABS: Calcium Oxalate Crystals- Ur FEW (NONE SEEN); Urine Amorphous Sediment 2+ /HPF (NONE SEEN); Urine Culture Reflex Order NOT NEEDED; Urine Mucus HEAVY /HPF (NONE SEEN)
[2019-11-17 08:04] LABS: ALT/SGPT 21 U/L (12-78); AST/SGOT 13 U/L (15-37); Albumin 3.7 g/dL (3.4-5.0); Alkaline Phosphatase 112 U/L (45-117); BUN Blood Urea Nitrogen 8 mg/dL (7-18); Bicarbonate 26 mmol/L (21-32); Bilirubin Direct < 0.1 mg/dL (0-0.2); Bilirubin Total 0.3 mg/dL (0.2-1.0); Glucose Level 107 mg/dL (74-106); Lipase 35 U/L (73-393); Potassium 3.9 mmol/L (3.5-5.1); Protein, Total 8.4 g/dL (6.4-8.2); Sodium Level 140 mmol/L (136-145)
--- NOTE | 2019-11-17 08:34 | ER ---
Nurse's Notes [facility] Name: Peng Preciado Age: 39 yrs Sex: Female : 1980 Arrival Date: 11/17/2019 Time: 06:43 Bed 20 Private MD: Diagnosis: Constipation, unspecified;Urinary tract infection, site not specified Presentation: 11/16 06:59 Chief complaint: Patient states: she has been having urinary problems for several days bb but the pain is getting worse. Coronavirus screen: At this time, the client does not indicate any symptoms associated with coronavirus-19. Ebola Screen: No symptoms or risks identified at this time. Initial Sepsis Screen: Does the patient meet any 2 criteria? No. Patient's initial sepsis screen is negative. Does the patient have a suspected source of infection? No. Patient's initial sepsis screen is negative. Risk Assessment: Do you want to hurt yourself or someone else? Patient reports no desire to harm self or others. Onset of symptoms was November 17, 2019. 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 - Social history:: Smoking status: Patient denies any tobacco usage or history of. Patient uses alcohol, occasionally. Patient/guardian denies using street drugs. - Family history:: not pertinent. - Hospitalizations: : No recent hospitalization is reported. Screenin:09 Abuse screen: Denies threats or abuse. Denies injuries from another. Nutritional ss screening: No deficits noted. Tuberculosis screening: Never had TB. Fall Risk None identified. Assessment: 07:09 Reassessment: PT attempting to provide urine specimen at this time. Neuro: Gait is ss steady. 07:15 General: Appears uncomfortable, Behavior is cooperative. Pain: Complains of pain in ss lower abd, rectum Pain currently is 9 out of 10 on a pain scale. Pain began 1 day ago. Is continuous. Neuro: Level of Consciousness is awake, alert, obeys commands, Oriented to person, place, time, situation, Speech is normal, Facial symmetry appears normal. Cardiovascular: Capillary refill < 3 seconds is brisk in bilateral fingers. Respiratory: Airway is patent Respiratory effort is even, unlabored, Respiratory pattern is regular, symmetrical. GI: Reports lower abdominal pain, constipation, Patient currently denies nausea. EENT: Nares are clear Oral mucosa is moist. Derm: Skin is intact, is healthy with good turgor, Skin is dry, Skin is pink, warm \T\ dry. normal. 08:08 Reassessment: Pt is resting at this time with eyes closed. Two of her children on ss resting on top of her while her fluids are infusing. Fleet enema ordered. Pt states she would like to administer enema to herself after her fluids are infusing. Dr. Cordero notified. Call light remains within reach. 08:38 Reassessment: fleet enema given to patient to self administer at home as her two ss children are still with her and their ride is not here yet to pick them up. Pt okay with this and OK per Dr. Cordero. Vital Signs: 06:59 BP 127 / 100; Pulse 88; Resp 16 S; Temp 98.6(O); Pulse Ox 98% on R/A; Weight 95.25 kg bb (R); Height 5 ft. 8 in. (172.72 cm) (R); Pain 9/10; 08:48 BP 126 / 83; ss 06:59 Body Mass Index 31.93 (95.25 kg, 172.72 cm) ED Course: 06:43 Patient arrived in ED. cl3 07:03 Triage completed. bb 07:03 Arm band placed on Patient placed in an exam room, on a stretcher, on pulse oximetry. bb 07:04 Paulino Cordero MD is Attending Physician. rn 07:09 Keysha Jackman RN is Primary Nurse. ss 07:35 Urine collected: clean catch specimen, clear. Inserted saline lock: 22 gauge in right ss antecubital area, using aseptic technique. Blood collected. Patient maintains SpO2 saturation greater than 95% on room air. 08:09 Patient has correct armband on for positive identification. Bed in low position. Call ss light in reach. Warm blanket given. 08:47 No provider procedures requiring assistance completed. IV discontinued, intact, ss bleeding controlled, No redness/swelling at site. Pressure dressing applied. Administered Medications: 07:41 Drug: NS 0.9% 500 ml Route: IV; Rate: bolus; Site: right antecubital; ss 08:21 Follow up: IV Status: Completed infusion; IV Intake: 500ml ss 08:38 Not Given (Pt's ride for her children is not here yet and she reports she is feeling ss better. Will administer when she gets home.): Fleet Enema 133 ml AL once; may repeat once Intake: 08:21 IV: 500ml; Total: 500ml. ss Outcome: 08:33 Discharge ordered by . rn 08:48 Discharged to home ambulatory. ss 08:48 Condition: good 08:48 Discharge instructions given to patient, Instructed on discharge instructions, follow up and referral plans. medication usage, Demonstrated understanding of instructions, follow-up care, medications, Prescriptions given X 1. 08:49 Patient left the ED. ss Signatures: Silvia Garces RN RN bb Paulino Cordero MD MD rn Smirch, Shelby, RN RN ss Emelyn Toro cl3 Corrections: (The following items were deleted from the chart) 08:38 08:00 Fleet Enema 133 ml AL ss ss
--- NOTE | 2019-11-17 08:34 | EDPHYS ---
Physician Documentation [facility] Name: Peng Preciado Age: 39 yrs Sex: Female : 1980 Arrival Date: 11/17/2019 Time: 06:43 Bed 20 Private MD: ED Physician Paulino Cordero HPI: 11/16 07:24 This 39 yrs old Black Female presents to ER via Ambulatory with complaints of Urinary rn Problem, constipation. 07:24 The patient presents with abdominal pain in the lower abdomen. Onset: The rn symptoms/episode began/occurred yesterday. The symptoms do not radiate. Associated signs and symptoms: Pertinent positives: constipation, Pertinent negatives: blood in stools, chest pain, fever, shortness of breath, vomiting. The symptoms are described as crampy. Modifying factors: The symptoms are alleviated by nothing, the symptoms are aggravated by nothing. Severity of pain: At its worst the pain was mild in the emergency department the pain is unchanged. The patient has experienced similar episodes in the past. Reports "happens all the time". + constipation for 3 days, is passing gas, reports tried miralax and didn't help, no vomiting/fever. + similar to previous episodes of constipation. Also thinks has UTI. . 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 - Social history:: Smoking status: Patient denies any tobacco usage or history of. Patient uses alcohol, occasionally. Patient/guardian denies using street drugs. - Family history:: not pertinent. - Hospitalizations: : No recent hospitalization is reported. ROS: 07:24 Constitutional: Negative for fever, chills, and weight loss, Eyes: Negative for injury, rn pain, redness, and discharge, Neck: Negative for injury, pain, and swelling, Cardiovascular: Negative for chest pain, palpitations, and edema, Respiratory: Negative for shortness of breath, cough, wheezing, and pleuritic chest pain, Abdomen/GI: + abd cramping and constipation : Negative for injury, bleeding, discharge, and swelling, MS/Extremity: Negative for injury and deformity, Skin: Negative for injury, rash, and discoloration, Neuro: Negative for headache, weakness, numbness, tingling, and seizure. Exam: 07:24 Constitutional: This is a well developed, well nourished patient who is awake, alert, rn standing in room, no acute distress Head/Face: Normocephalic, atraumatic. Cardiovascular: Regular rate and rhythm. No pulse deficits. Respiratory: Speaking full sentences. No increased work of breathing, no retractions or nasal flaring. Abdomen/GI: soft, non-tender, non-distended Back: No spinal tenderness. No costovertebral tenderness. Full range of motion. Skin: Warm, dry MS/ Extremity: Pulses equal, no cyanosis. Neurovascular intact. Full, normal range of motion. Equal circumference. Neuro: Awake and alert, GCS 15, oriented to person, place, time, and situation. Cranial nerves II-XII grossly intact. Motor strength 5/5 in all extremities. Sensory grossly intact. Cerebellar exam normal. Normal gait. Vital Signs: 06:59 BP 127 / 100; Pulse 88; Resp 16 S; Temp 98.6(O); Pulse Ox 98% on R/A; Weight 95.25 kg bb (R); Height 5 ft. 8 in. (172.72 cm) (R); Pain 9/10; 08:48 BP 126 / 83; ss 06:59 Body Mass Index 31.93 (95.25 kg, 172.72 cm) bb MDM: 07:04 Patient medically screened. rn 08:32 Differential diagnosis: Constipation, UTI. Data reviewed: vital signs, nurses notes, rn unit manager test result(s), and as a result, I will discharge patient. Counseling: I had a detailed discussion with the patient and/or guardian regarding: the historical points, exam findings, and any diagnostic results supporting the discharge/admit diagnosis, lab results, the need for outpatient follow up, to return to the emergency department if symptoms worsen or persist or if there are any questions or concerns that arise at home. Special discussion: Based on the patient's Hx, exam, and Dx evaluation, there is no indication for emergent surgery or inpatient Tx. It is understood by the patient/guardian that if the Sx's persist or worsen they need to return immediately for re-evaluation. I discussed with the patient/guardian in detail that at this point there is no indication for admission to the hospital. It is understood, however, that if the symptoms persist or worsen the patient needs to return immediately for re-evaluation. ED course: Pt with some passing of stool here, feels a little better, will dc home with continuation of laxatives and enemas prn, with return precaution. . 11/16 07:05 Order name: Urine Culture rn 11/16 07:05 Order name: Urine Microscopic Only; Complete Time: 08:10 rn 11/16 07:17 Order name: Basic Metabolic Panel; Complete Time: 08:10 rn 11/16 07:17 Order name: CBC with Diff; Complete Time: 08:10 rn 11/16 07:17 Order name: Hepatic Function; Complete Time: 08:10 rn 11/16 07:17 Order name: Lipase; Complete Time: 08:10 rn 11/16 07:05 Order name: Urine Dipstick-Ancillary (obtain specimen); Complete Time: 07:36 rn 11/16 07:17 Order name: IV Saline Lock; Complete Time: 07:36 rn 11/16 07:28 Order name: Urine Dipstick--Ancillary (enter results) 11/16 07:28 Order name: Urine --Ancillary (enter results) 11/16 07:29 Order name: Urine Dipstick-Ancillary; Complete Time: 08:10 EDWV 11/16 07:29 Order name: Urine --Ancillary; Complete Time: 08:10 EDWV 11/16 07:17 Order name: Labs collected and sent; Complete Time: 07:36 rn Administered Medications: 07:41 Drug: NS 0.9% 500 ml Route: IV; Rate: bolus; Site: right antecubital; ss 08:21 Follow up: IV Status: Completed infusion; IV Intake: 500ml ss 08:38 Not Given (Pt's ride for her children is not here yet and she reports she is feeling ss better. Will administer when she gets home.): Fleet Enema 133 ml [place] once; may repeat once Disposition: 11/17/19 08:33 Discharged to Home. Impression: Constipation, unspecified, Urinary tract infection, site not specified. - Condition is Stable. - Discharge Instructions: Constipation, Adult, Urinary Tract Infection, Adult. - Prescriptions for Macrobid 100 mg Oral Capsule - take 1 capsule by ORAL route every 12 hours for 7 days; 14 capsule. - Medication Reconciliation Form, Thank You Letter, Antibiotic Education, Prescription Opioid Use form. - Follow up: Private Physician; When: As needed; Reason: Recheck today's complaints, Re-evaluation by your physician. - Problem is new. - Symptoms have improved. Signatures: Dispatcher [employer] EDSilvia Christine RN RN Paulino Scott MD MD rn Smirch, Shelby, RN RN ss Corrections: (The following items were deleted from the chart) 08:49 08:33 11/17/2019 08:33 Discharged to Home. Impression: Constipation, unspecified; ss Urinary tract infection, site not specified. Condition is Stable. Forms are Medication Reconciliation Form, Thank You Letter, Antibiotic Education, Prescription Opioid Use. Follow up: Private Physician; When: As needed; Reason: Recheck today's complaints, Re-evaluation by your physician. Problem is new. Symptoms have improved. rn
[2019-11-17 09:15] VITALS: TEMP 98.6; O2SAT 98
[2019-11-17 09:16] VITALS: BP 126/83
== END 2019-11-17 08:49 | disposition home or self-care (01) ==
LOC: ER 06:42
DX: N39.0 Urinary tract infection, site not specified (principal); I10 Essential (primary) hypertension; Z88.1 Allergy status to other antibiotic agents
CPT/HCPCS: 36415; 80048; 80076; 81003; 81015; 81025; 83690; 85025; 87086; 87088; 96360; 99284; J7040

== ENCOUNTER 2020-03-10 22:18 | Emergency (ER) | payer SELFPAY ==
[2020-03-11 00:48] LABS: Urine Glucose NEGATIVE (NEG); Urine Specific Gravity 1.025 (1.005-1.030)
[2020-03-11 00:49] LABS: Urine Blood NEGATIVE (NEG); Urine Protein TRACE (NEG); Urine pH 6.5 (5.0-7.0)
[2020-03-11 00:49] LABS: Urine Specific Gravity 1.025 (1.005-1.030)
[2020-03-11 01:03] LABS: Urine Bacteria 20-50 /HPF (<20); Urine RBC NONE SEEN /HPF (NONE SEEN)
[2020-03-11 01:05] LABS: Urine Mucus 2+ /HPF (NONE SEEN)
[2020-03-11] MEDS ORDERED: levoFLOXacin 500 MG TAB ONE (02:16)
--- NOTE | 2020-03-11 02:42 | ER ---
Nurse's Notes [facility] Name: Peng Preciado Age: 39 yrs Sex: Female : 1980 Arrival Date: 03/10/2020 Time: 22:31 Bed 8 Private MD: Diagnosis: Urinary tract infection, site not specified;Dental caries Presentation: 03/10 23:20 Chief complaint: Patient states: Urinary frequency x 2 days, slight nausea; Denies lp1 fever. Coronavirus screen: Client denies travel out of the [place] in the last 14 days. At this time, the client does not indicate any symptoms associated with coronavirus-19. Ebola Screen: No symptoms or risks identified at this time. Risk Assessment: Do you want to hurt yourself or someone else? Patient reports no desire to harm self or others. Onset of symptoms was March 10, 2020. 23:20 Method Of Arrival: Ambulatory lp1 23:20 Acuity: SIMONE 3 lp1 23:24 Initial Sepsis Screen: Does the patient meet any 2 criteria? No. Patient's initial lp1 sepsis screen is negative. Does the patient have a suspected source of infection? No. Patient's initial sepsis screen is negative. Triage Assessment: 23:30 General: Appears in no apparent distress. Behavior is calm, cooperative. Pain: Denies lp1 pain. EENT: No signs and/or symptoms were reported regarding the EENT system. Neuro: Level of Consciousness is awake, alert, obeys commands, Oriented to person, place, time, situation, Gait is steady. Cardiovascular: Patient's skin is warm and dry. Respiratory: Respiratory effort is even, unlabored. GI: No signs and/or symptoms were reported involving the gastrointestinal system. : Reports burning with urination, urinary frequency. Derm: Skin is intact, Skin is dry, Skin is normal. Musculoskeletal: No deficits noted. 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 - Social history:: Smoking status: Patient denies any tobacco usage or history of. Screenin:23 Abuse screen: Denies threats or abuse. Denies injuries from another. Nutritional lp1 screening: No deficits noted. Tuberculosis screening: No symptoms or risk factors identified. Fall Risk None identified. Vital Signs: 23:24 BP 154 / 102; Pulse 79; Resp 18; Temp 98.5(O); Pulse Ox 100% on R/A; Weight 99.79 kg lp1 (R); Height 5 ft. 9 in. (175.26 cm); 23:24 Body Mass Index 32.49 (99.79 kg, 175.26 cm) lp1 ED Course: 22:31 Patient arrived in ED. es 23:22 Triage completed. lp1 23:22 Arm band placed on right wrist. lp1 01/09 00:10 Urine Dipstick--Ancillary (enter results) Sent. ds4 00:10 Urine Microscopic Only Sent. ds4 01:18 Stephane Quiroz MD is Attending Physician. mh7 01:24 Patient has correct armband on for positive identification. lp1 01:59 Paul Sifuentes, RN is Primary Nurse. rv 02:43 Arash Chan DDS is Referral Physician. mh7 02:49 No provider procedures requiring assistance completed. Patient did not have IV access rv during this emergency room visit. Administered Medications: 02:10 Drug: LevaQUIN 500 mg Route: PO; rv 02:34 Follow up: Response: No adverse reaction rv Outcome: 02:42 Discharge ordered by MD. mh7 02:49 Discharged to home ambulatory, with family. rv 02:49 Condition: improved 02:49 Discharge instructions given to patient, Instructed on discharge instructions, follow up and referral plans. medication usage, Demonstrated understanding of instructions, follow-up care, medications, Prescriptions given X 3. 02:49 Patient left the ED. rv Signatures: Rosa Maria Solitario Laura, RN RN lp1 Todd Cifuentes ds4 Paul Sifuentes RN RN rv Stephane Quiroz MD MD 7 Corrections: (The following items were deleted from the chart) 03/10 23:24 23:20 Chief complaint: Patient states: Urinary frequency x 2 days; Denies fever lp1 lp1
--- NOTE | 2020-03-11 02:43 | EDPHYS ---
Physician Documentation [facility] Name: Peng Preciado Age: 39 yrs Sex: Female : 1980 Arrival Date: 03/10/2020 Time: 22:31 Bed 8 Private MD: ED Physician Stephane Quiroz HPI: 03/11 02:36 This 39 yrs old Black Female presents to ER via Ambulatory with complaints of FEEL SICK.mh7 02:37 The patient presents with urinary symptoms, dysuria, frequency. mh7 02:37 Onset: The symptoms/episode began/occurred 2 day(s) ago. Modifying factors: The mh7 symptoms are alleviated by nothing, the symptoms are aggravated by nothing. Associated signs and symptoms: Pertinent negatives: constipation, cramping, diarrhea, dyspareunia, fever, hematuria, nausea, vaginal bleeding, vaginal discharge, vomiting. Severity of symptoms: At their worst the symptoms were moderate, 2 day(s) ago, in the emergency department the symptoms are unchanged. The patient has experienced similar episodes in the past, multiple times. 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 - Social history:: Smoking status: Patient denies any tobacco usage or history of. ROS: 03/11 02:37 Constitutional: Negative for fever, chills, and weight loss, Eyes: Negative for injury, mh7 pain, redness, and discharge. Neck: Negative for injury, pain, and swelling, Cardiovascular: Negative for chest pain, palpitations, and edema, Respiratory: Negative for shortness of breath, cough, wheezing, and pleuritic chest pain, Abdomen/GI: Negative for abdominal pain, nausea, vomiting, diarrhea, and constipation, Back: Negative for injury and pain, MS/Extremity: Negative for injury and deformity, Skin: Negative for injury, rash, and discoloration, Neuro: Negative for headache, weakness, numbness, tingling, and seizure, Psych: Negative for depression, anxiety, suicide ideation, homicidal ideation, and hallucinations, Allergy/Immunology: Negative for hives, rash, and allergies, Endocrine: Negative for neck swelling, polydipsia, polyuria, polyphagia, and marked weight changes, Hematologic/Lymphatic: Negative for swollen nodes, abnormal bleeding, and unusual bruising. ENT: Positive for Teeth pain Exam: 02:37 Constitutional: This is a well developed, well nourished patient who is awake, alert, mh7 and in no acute distress. Head/Face: Normocephalic, atraumatic. Eyes: Pupils equal round and reactive to light, extra-ocular motions intact. Lids and lashes normal. Conjunctiva and sclera are non-icteric and not injected. Cornea within normal limits. Periorbital areas with no swelling, redness, or edema. 02:37 Neck: Trachea midline, no thyromegaly or masses palpated, and no cervical lymphadenopathy. Supple, full range of motion without nuchal rigidity, or vertebral point tenderness. No Meningismus. Chest/axilla: Normal chest wall appearance and motion. Nontender with no deformity. No lesions are appreciated. Cardiovascular: Regular rate and rhythm with a normal S1 and S2. No gallops, murmurs, or rubs. Normal PMI, no JVD. No pulse deficits. Respiratory: Lungs have equal breath sounds bilaterally, clear to auscultation and percussion. No rales, rhonchi or wheezes noted. No increased work of breathing, no retractions or nasal flaring. Abdomen/GI: Soft, non-tender, with normal bowel sounds. No distension or tympany. No guarding or rebound. No evidence of tenderness throughout. Back: No spinal tenderness. No costovertebral tenderness. Full range of motion. Skin: Warm, dry with normal turgor. Normal color with no rashes, no lesions, and no evidence of cellulitis. MS/ Extremity: Pulses equal, no cyanosis. Neurovascular intact. Full, normal range of motion. Neuro: Awake and alert, GCS 15, oriented to person, place, time, and situation. Cranial nerves II-XII grossly intact. Motor strength 5/5 in all extremities. Sensory grossly intact. Cerebellar exam normal. Normal gait. Psych: Awake, alert, with orientation to person, place and time. Behavior, mood, and affect are within normal limits. 02:37 ENT: External ear(s): are unremarkable, Nose: is normal, Mouth: is normal, Posterior pharynx: is normal, Dental exam: dental caries, that is moderate, diffusely, Voice: is normal. Vital Signs: 03/10 23:24 BP 154 / 102; Pulse 79; Resp 18; Temp 98.5(O); Pulse Ox 100% on R/A; Weight 99.79 kg lp1 (R); Height 5 ft. 9 in. (175.26 cm); 23:24 Body Mass Index 32.49 (99.79 kg, 175.26 cm) lp1 MDM: 03/11 02:37 Differential diagnosis: kidney stone, urinary tract infection, Dysuria. Data reviewed: [facility] vital signs, nurses notes, lab test result(s), urinalysis, bacteruria, UPT: negative. Data interpreted: Pulse oximetry: on room air is 100 %. Interpretation: normal. Counseling: I had a detailed discussion with the patient and/or guardian regarding: the historical points, exam findings, and any diagnostic results supporting the discharge/admit diagnosis, the presence of at least one elevated blood pressure reading (>120/80) during this emergency department visit, lab results, the need for outpatient follow up, to return to the emergency department if symptoms worsen or persist or if there are any questions or concerns that arise at home. Response to treatment: the patient's symptoms have markedly improved after treatment. 02:42 Patient medically screened. [facility] 03/11 00:08 Order name: Urine Microscopic Only; Complete Time: :32 4 03/11 00:09 Order name: Urine Dipstick--Ancillary (enter results); Complete Time: :32 4 03/11 00:10 Order name: Urine --Ancillary (enter results); Complete Time: :32 ds4 03/11 00:12 Order name: Urine Dipstick-Ancillary (obtain specimen); Complete Time: 00:12 lp1 03/11 01:57 Order name: Urine Culture [facility] 03/11 00:12 Order name: Urine Test (obtain specimen); Complete Time: 00:12 lp1 Administered Medications: 02:10 Drug: LevaQUIN 500 mg Route: PO; rv 02:34 Follow up: Response: No adverse reaction rv Disposition: 03/11/20 02:42 Discharged to Home. Impression: Urinary tract infection, site not specified, Dental caries. - Condition is Stable. - Discharge Instructions: Urinary Tract Infection, Adult, Dzli-bo-Awib, Dental Pain, Vasb-nz-Natb. - Prescriptions for Ibuprofen 800 mg Oral Tablet - take 1 tablet by ORAL route every 8 hours As needed take with food; 15 tablet. Levaquin 500 mg Oral Tablet - take 1 tablet by ORAL route once daily for 10 days; 10 tablet. Pyridium 200 mg Oral Tablet - take 1 tablet by ORAL route every 8 hours for 2 days; 6 tablet. - Medication Reconciliation Form, Thank You Letter, Antibiotic Education, Prescription Opioid Use form. - Follow up: Private Physician; When: 1 - 2 days; Reason: Worsening of condition, Recheck today's complaints, Continuance of care, Re-evaluation by your physician. Follow up: Arash Chan DDS; When: 2 - 3 days; Reason: Worsening of condition, Recheck today's complaints. - Problem is an acute exacerbation. - Symptoms have improved. Signatures: Dispatcher [employer] EDMS Leela Waterman RN RN lp1 Paul Sifuentes RN RN rv Stephane Quiroz MD MD 7 Corrections: (The following items were deleted from the chart) 02:43 02:42 03/11/2020 02:42 Discharged to Home. Impression: Urinary tract infection, site mh7 not specified; Dental caries. Condition is Stable. Forms are Medication Reconciliation Form, Thank You Letter, Antibiotic Education, Prescription Opioid Use. Follow up: Private Physician; When: 1 - 2 days; Reason: Worsening of condition, Recheck today's complaints, Continuance of care, Re-evaluation by your physician. Problem is an acute exacerbation. Symptoms have improved. mh7 02:49 02:43 03/11/2020 02:42 Discharged to Home. Impression: Urinary tract infection, site rv not specified; Dental caries. Condition is Stable. Discharge Instructions: Urinary Tract Infection, Adult, [id number], Dental Pain, Gttt-[id number]-Pbrv. Prescriptions for Ibuprofen 800 mg Oral Tablet - take 1 tablet by ORAL route every 8 hours As needed take with food; 15 tablet, Levaquin 500 mg Oral Tablet - take 1 tablet by ORAL route once daily for 10 days; 10 tablet, Pyridium 200 mg Oral Tablet - take 1 tablet by ORAL route every 8 hours for 2 days; 6 tablet. and Forms are Medication Reconciliation Form, Thank You Letter, Antibiotic Education, Prescription Opioid Use. Follow up: Private Physician; When: 1 - 2 days; Reason: Worsening of condition, Recheck today's complaints, Continuance of care, Re-evaluation by your physician. Follow up: Arash Chan; When: 2 - 3 days; Reason: Worsening of condition, Recheck today's complaints. Problem is an acute exacerbation. Symptoms have improved. mh7
[2020-03-11 03:24] VITALS: BP 154/102; TEMP 98.5; O2SAT 100
== END 2020-03-11 02:49 | disposition home or self-care (01) ==
LOC: ER 22:18
DX: N39.0 Urinary tract infection, site not specified (principal); K02.9 Dental caries, unspecified; K50.90 Crohn's disease, unspecified, without complications; K21.9 Gastro-esophageal reflux disease without esophagitis; I10 Essential (primary) hypertension; G47.30 Sleep apnea, unspecified
CPT/HCPCS: 81003; 81015; 81025; 87086; 87088; 99283

== ENCOUNTER 2020-03-19 15:42 | Emergency (ER) | payer SELFPAY ==
[2020-03-19] MEDS ORDERED: MORPHINE 4 MG/ML SYR ONE (16:20)
[2020-03-19] MEDS ORDERED: CYCLOBENZAPRINE 10 MG TAB ONE (16:20)
[2020-03-19] MEDS ORDERED: LIDOCAINE 4% PATCH ONE (16:21)
--- NOTE | 2020-03-19 16:43 | RAD REPORT ---
EXAM DESCRIPTION: RAD - Foot Left 3 View - 03/19/2020 4:24 pm CLINICAL HISTORY: PAIN, not further localized COMPARISON: None FINDINGS: No fracture, dislocation or periosteal reaction. No acute or destructive bony process. Sm all plantar spur present. No air or foreign body in the soft tissues. Soft tissues appear mildly edematous with the baseline un known. IMPRESSION: Negative left foot examination for acute bone or joint finding finding. Soft tissues appear mildly edematous with the baseline unknown.
--- NOTE | 2020-03-19 16:47 | EDPHYS ---
Physician Documentation [facility] Name: Peng Preciado Age: 39 yrs Sex: Female : 1980 Arrival Date: 03/19/2020 Time: 15:43 Bed 16 Private MD: ED Physician Kaelyn Cortes HPI: 03/19 15:51 This 39 yrs old Black Female presents to ER via EMS with complaints of Back Pain. pm1 15:51 The patient presents with pain that is acute. The symptoms are located in the low back. pm1 Onset: The symptoms/episode began/occurred 2 day(s) ago. The pain radiates to the left lower quadrant. Associated signs and symptoms: Pertinent positives: nausea, Pertinent negatives: chest pain, dysuria, fever, numbness, tingling, vomiting. The problem was sustained Patient with a history of chronic back pain due to herniated disc in lower back. Reports she used to see pain management for it many years ago. 2 days ago the patient was picking up her 40 pound son and she felt a pop in her back with immediate pain. Modifying factors: The patient symptoms are alleviated by remaining still, the patient symptoms are aggravated by any movement. Severity of symptoms: in the emergency department the symptoms are unchanged. The patient has experienced similar episodes in the past, a few times. The patient has been recently seen at the [facility], for unrelated complaints, diagnosed with UTI and discharged home with antibiotics. Patient stopped taking antibiotics because they made her feel sick. Urine culture is negative - mixed tucker. Historical: - Allergies: 15:47 Bactrim; ll1 - PMHx: 15:47 Hypertension; GERD; Crohn's; Colitis; Sleep Apnea; ll1 - PSHx: 15:47 None; ll1 - Immunization history:: Flu vaccine is not up to date. - Social history:: Smoking status: Patient denies any tobacco usage or history of. ROS: 15:51 Constitutional: Negative for fever, chills, and weight loss, Cardiovascular: Negative pm1 for chest pain, palpitations, and edema, Respiratory: Negative for shortness of breath, cough, wheezing, and pleuritic chest pain. 15:51 MS/Extremity: Negative for injury and deformity, Skin: Negative for injury, rash, and discoloration, Neuro: Negative for headache, weakness, numbness, tingling, and seizure. 15:51 Abdomen/GI: Positive for abdominal pain, nausea, of the left lower quadrant, Negative for vomiting, diarrhea, constipation. 15:51 Back: Positive for of the low back area. Exam: 15:51 Constitutional: This is a well developed, well nourished patient who is awake, alert, pm1 and in no acute distress. 15:51 Skin: Warm, dry with normal turgor. Normal color with no rashes, no lesions, and no evidence of cellulitis. MS/ Extremity: Pulses equal, no cyanosis. Neurovascular intact. Full, normal range of motion. 15:51 Cardiovascular: Exam negative for acute changes, Rate: normal, Rhythm: regular, Pulses: no pulse deficits are appreciated. 15:51 Respiratory: Exam negative for acute changes, respiratory distress, shortness of breath. 15:51 Abdomen/GI: Inspection: obese Palpation: abdomen is soft and non-tender, in all quadrants. 15:51 Back: pain, of the low back area, muscle spasm, is appreciated in the low back area. 15:51 Neuro: Orientation: is normal, Mentation: is normal, Motor: is normal, moves all fours. Vital Signs: 15:47 Weight 99.79 kg; Height 5 ft. 8 in. (172.72 cm); Pain 10/10; ll1 15:50 BP 127 / 92; Pulse 60; Resp 18; Temp 97.7; Pulse Ox 100% ; ll1 17:00 BP 128 / 94; Pulse 65; Resp 16; Pulse Ox 100% on R/A; vg1 15:47 Body Mass Index 33.45 (99.79 kg, 172.72 cm) ll1 MDM: 15:44 Patient medically screened. pm1 15:51 ED course: Patient attributes her back pain to her left foot pain for the past 2 weeks. pm1 She wants a left foot xray. 16:45 Data reviewed: vital signs. pm1 16:45 Counseling: I had a detailed discussion with the patient and/or guardian regarding: the pm1 historical points, exam findings, and any diagnostic results supporting the discharge/admit diagnosis, radiology results, the need for outpatient follow up, a neurosurgeon, a sign painter apprentice, to return to the emergency department if symptoms worsen or persist or if there are any questions or concerns that arise at home. 17:02 ED course: OFFLINE EDITOR aware reviewed. Patient found but no medications on record. pm1 03/19 15:50 Order name: Foot Left 3 View XRAY; Complete Time: 16:45 pm1 Administered Medications: 16:18 Drug: morphine 4 mg {Note: rass 0.} Route: IM; Site: left deltoid; vg1 17:16 Follow up: Response: Pain is unchanged, physician notified vg1 16:18 Drug: Flexeril 10 mg Route: PO; vg1 17:16 Follow up: Response: No adverse reaction vg1 16:19 Drug: Lidoderm 5 % (700 mg/patch) 1 patches Route: Topical; Site: affected area; vg1 17:17 Follow up: Response: No adverse reaction vg1 Disposition: 03/19/20 16:46 Discharged to Home. Impression: Low back pain, Pain in left foot. - Condition is Stable. - Discharge Instructions: Back Pain, Adult, Chronic Back Pain, Foot Sprain, Back Injury Prevention, [id number]. - Prescriptions for Lidoderm 5 % Topical adhesive patch,medicated - apply 1 patch by TRANSDERMAL route once daily As needed; 30 Transdermal Patch. Tylenol- Codeine #3 300-30 mg Oral Tablet - take 2 tablets by ORAL route every 6 hours As needed; 20 tablet. Cyclobenzaprine 10 mg Oral Tablet - take 1 tablet by ORAL route every 8 hours As needed; 30 tablet. - Medication Reconciliation Form, Thank You Letter, Antibiotic Education, Prescription Opioid Use form. - Follow up: Emergency Department; When: As needed; Reason: Worsening of condition. Follow up: Private Physician; When: 2 - 3 days; Reason: Recheck today's complaints, Continuance of care, Re-evaluation by your physician. - Problem is new. - Symptoms have improved. Addendum: 03/20/2020 20:12 Co-signature as Attending Physician, Kaelyn Cortes MD. m a2 Signatures: Dispatcher [employer] EDMS Mickey Worthington, PERL SOFTWARE ENGINEER PERL SOFTWARE ENGINEER pm1 Kaelyn Cortes MD MD ma2 Lynette Sawyer, RN RN vg1 Silvia Toro RN RN ll1 Corrections: (The following items were deleted from the chart) 03/19 17:28 16:46 03/19/2020 16:46 Discharged to Home. Impression: Low back painPain in left foot. vg1 Condition is Stable. Forms are Medication Reconciliation Form, Thank You Letter, Antibiotic Education, Prescription Opioid Use. Follow up: Emergency Department; When: As needed; Reason: Worsening of condition. Follow up: Private Physician; When: 2 - 3 days; Reason: Recheck today's complaints, Continuance of care, Re-evaluation by your physician. Problem is new. Symptoms have improved. pm1
--- NOTE | 2020-03-19 16:47 | ER ---
Nurse's Notes [facility] Name: Peng Preciado Age: 39 yrs Sex: Female : 1980 Arrival Date: 03/19/2020 Time: 15:43 Bed 16 Private MD: Diagnosis: Pain in left foot;Low back pain Presentation: 03/19 15:47 Coronavirus screen: Client denies travel out of the [place] in the last 14 days. nausea, ll1 At this time, the client does not indicate any symptoms associated with coronavirus-19. Ebola Screen: Patient denies travel to an Ebola-affected area in the 21 days before illness onset. Initial Sepsis Screen: Does the patient meet any 2 criteria? No. Patient's initial sepsis screen is negative. Does the patient have a suspected source of infection? Yes: Acute abdominal pain. Risk Assessment: Do you want to hurt yourself or someone else? Patient reports no desire to harm self or others. Onset of symptoms was March 17, 2020. 15:47 Method Of Arrival: EMS ll1 15:47 Acuity: SIMONE 3 ll1 15:48 Chief complaint: Patient states: Back pain for 2 days. Had sudden pop to back today ll1 around 1000, and felt more severe pain ever since. Pain radiates into L side of abdomen now. + nausea. No fever. EMS states: VSS. Toradol 30 mg IM and Zofran 4 mg IM given en route. Historical: - Allergies: 15:47 Bactrim; ll1 - PMHx: 15:47 Hypertension; GERD; Crohn's; Colitis; Sleep Apnea; ll1 - PSHx: 15:47 None; ll1 - Immunization history:: Flu vaccine is not up to date. - Social history:: Smoking status: Patient denies any tobacco usage or history of. Screenin:57 Abuse screen: Denies threats or abuse. Nutritional screening: No deficits noted. vg1 Tuberculosis screening: No symptoms or risk factors identified. Fall Risk Fall in past 12 months (25 points). No secondary diagnosis (0 pts). No IV (0 pts). Ambulatory Aid- None/Bed Rest/Nurse Assist (0 pts). Gait- Normal/Bed Rest/Wheelchair (0 pts) Mental Status- Oriented to own ability (0 pts). Total Burnette Fall Scale indicates Low Risk Score (25-44 pts). Fall prevention measures have been instituted. Side Rails Up X 2 Placed close to Nursing Station. Assessment: 15:45 General: Appears in no apparent distress. uncomfortable, Behavior is calm, cooperative. vg1 Pain: Complains of pain in lower/mid back and left foot Pain currently is 10 out of 10 on a pain scale. Pain began 2-3 days ago. Neuro: Level of Consciousness is awake, alert, obeys commands, Oriented to person, place, time, situation. Cardiovascular: Patient's skin is warm and dry. Cardiovascular: Pulses are palpable in right dorsalis pedis artery and left dorsalis pedis artery. Respiratory: Airway is patent Respiratory effort is even, unlabored, Respiratory pattern is regular, symmetrical. GI: No signs and/or symptoms were reported involving the gastrointestinal system. : No signs and/or symptoms were reported regarding the genitourinary system. EENT: No signs and/or symptoms were reported regarding the EENT system. Derm: Skin is intact, is healthy with good turgor. Musculoskeletal: Circulation, motion, and sensation intact. 16:45 Reassessment: Patient appears in no apparent distress at this time. Patient and/or vg1 family updated on plan of care and expected duration. Pain level reassessed. Patient is alert, oriented x 3, equal unlabored respirations, skin warm/dry/pink. Vital Signs: 15:47 Weight 99.79 kg; Height 5 ft. 8 in. (172.72 cm); Pain 10/10; ll1 15:50 BP 127 / 92; Pulse 60; Resp 18; Temp 97.7; Pulse Ox 100% ; ll1 17:00 BP 128 / 94; Pulse 65; Resp 16; Pulse Ox 100% on R/A; vg1 15:47 Body Mass Index 33.45 (99.79 kg, 172.72 cm) ll1 ED Course: 15:43 Patient arrived in ED. ds1 15:44 Mickey Worthington NP is PHCP. pm1 15:44 Kaelyn Cortes MD is Attending Physician. pm1 15:46 Arm band placed on Patient placed in an exam room, on a stretcher. ll1 15:48 Triage completed. ll1 15:53 Lynette Sawyer, VIRGIE is Primary Nurse. vg1 15:57 Patient has correct armband on for positive identification. Bed in low position. Call vg1 light in reach. Side rails up X2. 16:25 Foot Left 3 View XRAY In Process Unspecified. EDMS 17:15 No provider procedures requiring assistance completed. Patient did not have IV access vg1 during this emergency room visit. Administered Medications: 16:18 Drug: morphine 4 mg {Note: rass 0.} Route: IM; Site: left deltoid; vg1 17:16 Follow up: Response: Pain is unchanged, physician notified vg1 16:18 Drug: Flexeril 10 mg Route: PO; vg1 17:16 Follow up: Response: No adverse reaction vg1 16:19 Drug: Lidoderm 5 % (700 mg/patch) 1 patches Route: Topical; Site: affected area; vg1 17:17 Follow up: Response: No adverse reaction vg1 Outcome: 16:46 Discharge ordered by MD. pm1 17:16 Discharged to home ambulatory. vg1 17:16 Condition: stable 17:16 Discharge instructions given to patient, Instructed on discharge instructions, follow up and referral plans. medication usage, Demonstrated understanding of instructions, follow-up care, medications, Prescriptions given X 3. 17:28 Patient left the ED. vg1 Signatures: Dispatcher [employer] EDLA Alina Low ds1 Mickey Worthington, MARCELA LEAD INSTRUCTOR/FLIGHT ATTENDANT pm1 Lynette Sawyer, RN RN vg1 Silvia Toro RN RN ll1
[2020-03-19 17:46] VITALS: TEMP 97.7; O2SAT 100
[2020-03-19 17:47] VITALS: BP 128/94
== END 2020-03-19 17:28 | disposition home or self-care (01) ==
LOC: ER 15:42
DX: M79.672 Pain in left foot (principal); I10 Essential (primary) hypertension; Z88.1 Allergy status to other antibiotic agents
CPT/HCPCS: 96372; 99284

== ENCOUNTER 2020-06-16 01:21 | Emergency (ER) | payer SELFPAY ==
[2020-06-16 01:39] LABS: Urine Blood 3+ (Negative); Urine Glucose Negative (Negative); Urine Protein 1+ (Negative)
--- NOTE | 2020-06-16 01:54 | ER ---
Nurse's Notes [facility] Name: Peng Preciado Age: 39 yrs Sex: Female : 1980 Arrival Date: 06/16/2020 Time: 01:22 Bed 15 Private MD: Diagnosis: Urinary tract infection, site not specified Presentation: 06/16 01:38 Chief complaint: Patient states: having nausea, no vomiting, vaginal bleeding, pelvic sf pain and urine burning, also being treated for tooth abscess for the last week with PCN [id number] QID. Coronavirus screen: Client denies travel out of the [place] in the last 14 days. At this time, the client does not indicate any symptoms associated with coronavirus-19. Ebola Screen: Patient negative for fever greater than or equal to 101.5 degrees Fahrenheit, and additional compatible Ebola Virus Disease symptoms Patient denies exposure to infectious person. Patient denies travel to an Ebola-affected area in the 21 days before illness onset. No symptoms or risks identified at this time. Initial Sepsis Screen: Does the patient meet any 2 criteria? No. Patient's initial sepsis screen is negative. Does the patient have a suspected source of infection? No. Patient's initial sepsis screen is negative. Risk Assessment: Do you want to hurt yourself or someone else? Patient reports no desire to harm self or others. Onset of symptoms was June 09, 2020. 01:38 Method Of Arrival: Ambulatory sf 01:38 Acuity: SIMONE 3 sf Triage Assessment: 01:41 General: Appears in no apparent distress. comfortable, Behavior is calm, cooperative. sf Pain: Complains of pain in right lower quadrant, left lower quadrant, groin and suprapubic area Pain currently is 8 out of 10 on a pain scale. EENT: No deficits noted. No signs and/or symptoms were reported regarding the EENT system. Neuro: No deficits noted. Level of Consciousness is awake, alert, Oriented to person, place, time, situation. Cardiovascular: No deficits noted. Patient's skin is warm and dry. Respiratory: No deficits noted. Airway is patent Respiratory effort is even, unlabored, Respiratory pattern is regular, symmetrical. GI: Abdomen is obese, Reports lower abdominal pain, nausea, Patient currently denies constipation, diarrhea, vomiting. : Urine is cloudy, blood tinged, Reports burning with urination, vaginal bleeding that is Denies discharge, incontinence. Derm: No deficits noted. No signs and/or symptoms reported regarding the dermatologic system. Musculoskeletal: No deficits noted. No signs and/or symptoms reported regarding the musculoskeletal system. 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 - Social history:: Smoking status: Patient denies any tobacco usage or history of. Patient/guardian denies using alcohol, street drugs, IV drugs. - Family history:: not pertinent. - Hospitalizations: : No recent hospitalization is reported. Screenin:45 Abuse screen: Denies threats or abuse. Denies injuries from another. Nutritional sf screening: No deficits noted. Tuberculosis screening: No symptoms or risk factors identified. Fall Risk None identified. Total Burnette Fall Scale indicates No Risk (0-24 pts). Assessment: :45 Reassessment: SEE TRIAGE ASSESSMENT. sf Vital Signs: 01:38 BP 149 / 98; Pulse 99; Resp 16; Temp 98.6; Pulse Ox 99% ; Weight 99.79 kg; Height 5 ft. sf 8 in. (172.72 cm); Pain 8/10; 01:38 Body Mass Index 33.45 (99.79 kg, 172.72 cm) ED Course: 01:22 Patient arrived in ED. cl3 01:24 Paulino Cordero MD is Attending Physician. rn 01:28 Ede Storey RN is Primary Nurse. sf 01:40 Triage completed. sf 01:41 Arm band placed on. sf 01:45 Patient has correct armband on for positive identification. Bed in low position. Call sf light in reach. Side rails up X 1. Pulse ox on. NIBP on. Door closed. Noise minimized. Visitors limited. Lights dimmed. Verbal reassurance given. 01:55 Urine --Ancillary (enter results) Sent. sf 02:05 No provider procedures requiring assistance completed. Patient did not have IV access sf during this emergency room visit. Administered Medications: No medications were administered Outcome: 01:54 Discharge ordered by . rn 02:05 Discharged to home ambulatory. sf 02:05 Condition: stable 02:05 Discharge instructions given to patient, Instructed on discharge instructions, follow up and referral plans. medication usage, Demonstrated understanding of instructions, follow-up care, medications, Prescriptions given X 1. 02:06 Patient left the ED. sf Signatures: Paulino Cordero MD MD rn Lewis, Charde cl3 Ede Storey RN RN sf
--- NOTE | 2020-06-16 01:54 | EDPHYS ---
Physician Documentation [facility] Name: Peng Preciado Age: 39 yrs Sex: Female : 1980 Arrival Date: 06/16/2020 Time: 01:22 Bed 15 Private MD: ED Physician Paulino Cordero HPI: 06/16 01:49 This 39 yrs old Black Female presents to ER via Ambulatory with complaints of Nausea, rn Pain With Urination. 01:49 The patient presents to the emergency department with nausea. rn 01:50 The patient presents with urinary symptoms, dysuria, hematuria. Onset: The rn symptoms/episode began/occurred yesterday. Modifying factors: The symptoms are alleviated by nothing, the symptoms are aggravated by urinating. Associated signs and symptoms: Pertinent positives: dysuria, Pertinent negatives: fever. Severity of symptoms: At their worst the symptoms were mild, in the emergency department the symptoms are unchanged. The patient has experienced similar episodes in the past. The patient has not recently seen a physician. Reports dysuria and noticed some blood in urine and vagina. Recently diagnosed with fibroids but not able to get into gynecology yet. NO fever. No trauma. . 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 - Social history:: Smoking status: Patient denies any tobacco usage or history of. Patient/guardian denies using alcohol, street drugs, IV drugs. - Family history:: not pertinent. - Hospitalizations: : No recent hospitalization is reported. ROS: 01:50 Constitutional: Negative for fever, chills, and weight loss, Neck: Negative for injury, rn pain, and swelling, Cardiovascular: Negative for chest pain, palpitations, and edema, Respiratory: Negative for shortness of breath, cough, wheezing, and pleuritic chest pain, Abdomen/GI: Negative for abdominal pain, nausea, vomiting, diarrhea, and constipation, Back: Negative for injury and pain, : + dysuria MS/Extremity: Negative for injury and deformity, Skin: Negative for injury, rash, and discoloration, Neuro: Negative for headache, weakness, numbness, tingling, and seizure. Exam: 01:50 Constitutional: This is a well developed, well nourished patient who is awake, alert, rn and in no acute distress. Head/Face: Normocephalic, atraumatic. Cardiovascular: Regular rate and rhythm. No pulse deficits. Respiratory: No increased work of breathing, no retractions or nasal flaring. Abdomen/GI: soft, non-tender Skin: Warm, dry with normal turgor. Normal color with no rashes, no lesions, and no evidence of cellulitis. MS/ Extremity: Pulses equal, no cyanosis. Neurovascular intact. Full, normal range of motion. Equal circumference. Neuro: Awake and alert, GCS 15, oriented to person, place, time, and situation. Cranial nerves II-XII grossly intact. Motor strength 5/5 in all extremities. Sensory grossly intact. Cerebellar exam normal. Normal gait. Vital Signs: 01:38 BP 149 / 98; Pulse 99; Resp 16; Temp 98.6; Pulse Ox 99% ; Weight 99.79 kg; Height 5 ft. sf 8 in. (172.72 cm); Pain 8/10; 01:38 Body Mass Index 33.45 (99.79 kg, 172.72 cm) sf MDM: 01:24 Patient medically screened. rn 01:50 Differential diagnosis: dysfunctional uterine bleeding, dysmenorrhea, ovarian cyst, rn uterine fibroids, urinary tract infection. Data reviewed: vital signs, nurses notes, old medical records, and as a result, I will discharge patient. Counseling: I had a detailed discussion with the patient and/or guardian regarding: the historical points, exam findings, and any diagnostic results supporting the discharge/admit diagnosis, the need for outpatient follow up, to return to the emergency department if symptoms worsen or persist or if there are any questions or concerns that arise at home. Special discussion: I discussed with the patient/guardian in detail that at this point there is no indication for admission to the hospital. It is understood, however, that if the symptoms persist or worsen the patient needs to return immediately for re-evaluation. 06/16 01:40 Order name: Urine Dipstick-Ancillary EDMS 06/16 01:41 Order name: Urine --Ancillary (enter results) mw2 06/16 01:45 Order name: Urine --Ancillary EDMS Administered Medications: No medications were administered Disposition: 06/16/20 01:54 Discharged to Home. Impression: Urinary tract infection, site not specified. - Condition is Stable. - Discharge Instructions: Dysuria, Urinary Tract Infection, Adult. - Prescriptions for Keflex 500 mg Oral Capsule - take 1 capsule by ORAL route every 12 hours for 10 days; 20 capsule. - Medication Reconciliation Form, Thank You Letter, Antibiotic Education, Prescription Opioid Use form. - Follow up: Private Physician; When: As needed; Reason: Recheck today's complaints, Re-evaluation by your physician. - Problem is new. - Symptoms have improved. Signatures: Dispatcher [employer] EDMS Paulino Cordero MD MD rn Fitzpatrick, Steven, RN RN sf Corrections: (The following items were deleted from the chart) 01:52 01:50 Constitutional: Negative for fever, chills, and weight loss, Neck: Negative for rn injury, pain, and swelling, Cardiovascular: Negative for chest pain, palpitations, and edema, Respiratory: Negative for shortness of breath, cough, wheezing, and pleuritic chest pain, Abdomen/GI: Negative for abdominal pain, nausea, vomiting, diarrhea, and constipation, Back: Negative for injury and pain, : + dysuria MS/Extremity: Negative for injury and deformity, Skin: Negative for injury, rash, and discoloration, Neuro: Negative for headache, weakness, numbness, tingling, and seizure, rn 02:06 01:54 06/16/2020 01:54 Discharged to Home. Impression: Urinary tract infection, site sf not specified. Condition is Stable. Forms are Medication Reconciliation Form, Thank You Letter, Antibiotic Education, Prescription Opioid Use. Follow up: Private Physician; When: As needed; Reason: Recheck today's complaints, Re-evaluation by your physician. Problem is new. Symptoms have improved. rn
[2020-06-16 02:18] VITALS: BP 149/98; TEMP 98.6; O2SAT 99
== END 2020-06-16 02:06 | disposition home or self-care (01) ==
LOC: ER 01:21
DX: N39.0 Urinary tract infection, site not specified (principal); I10 Essential (primary) hypertension; Z88.1 Allergy status to other antibiotic agents
CPT/HCPCS: 81003; 81025; 99283

== ENCOUNTER 2020-09-20 14:28 | Emergency (ER) | payer SELFPAY ==
[2020-09-20 15:28] LABS: Urine Blood Negative (Negative); Urine Glucose Negative (Negative); Urine Protein Negative (Negative); Urine pH 6.5 (5.0-7.0)
--- NOTE | 2020-09-20 15:39 | ER ---
Nurse's Notes [facility] Name: Peng Preciado Age: 40 yrs Sex: Female : 1980 Arrival Date: 09/20/2020 Time: 14:29 Bed 12 Private MD: Diagnosis: Disorder of teeth and supporting structures, unspecified;UTI/ Urinary tract infection, site not specified Presentation: 09/20 14:48 Chief complaint: Patient states: I was supposed to have an oral surgery on 09/14/2020 ca1 but they rescheduled me and I can't get into surgery until October. I have completed my antibiotics and my R jaw and R face have been hurting so bad since last night. I also have a bladder infection so am cramping on my abdominal area, and the pain has been radiating to my r thigh. Coronavirus screen: Client denies travel out of the [place] in the last 14 days. At this time, the client does not indicate any symptoms associated with coronavirus-19. Ebola Screen: Patient negative for fever greater than or equal to 101.5 degrees Fahrenheit, and additional compatible Ebola Virus Disease symptoms Patient denies exposure to infectious person. Patient denies travel to an Ebola-affected area in the 21 days before illness onset. No symptoms or risks identified at this time. Initial Sepsis Screen: Does the patient meet any 2 criteria? No. Patient's initial sepsis screen is negative. Does the patient have a suspected source of infection? No. Patient's initial sepsis screen is negative. Risk Assessment: Do you want to hurt yourself or someone else? Patient reports no desire to harm self or others. Onset of symptoms was September 20, 2020. 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 Flu vaccine is not up to date. - Social history:: Smoking status: Patient denies any tobacco usage or history of. Screenin:12 Abuse screen: Denies threats or abuse. Denies injuries from another. Nutritional ca1 screening: No deficits noted. Tuberculosis screening: No symptoms or risk factors identified. Fall Risk None identified. Assessment: 15:12 General: Appears in no apparent distress. comfortable, Behavior is calm, cooperative, ca1 appropriate for age. Pain: Complains of pain in left cheek and left jaw Pain currently is 10 out of 10 on a pain scale. Pain began 1 day ago. Neuro: Level of Consciousness is awake, alert, obeys commands, Oriented to person, place, time, situation. GI: Abdomen is round non-distended, Bowel sounds present X 4 quads. Abd is soft and non tender X 4 quads. : No signs and/or symptoms were reported regarding the genitourinary system. EENT: No signs and/or symptoms were reported regarding the EENT system. Derm: Skin is intact, is healthy with good turgor, Skin is pink, warm \T\ dry. Musculoskeletal: Circulation, motion, and sensation intact. Capillary refill < 3 seconds. 15:59 Reassessment: Patient appears in no apparent distress at this time. Patient is alert, ca1 oriented x 3, equal unlabored respirations, skin warm/dry/pink. Vital Signs: 14:48 BP 128 / 99; Pulse 82; Resp 16; Temp 97.8(TE); Pulse Ox 97% on R/A; Weight 99.79 kg ca1 (R); Height 5 ft. 9 in. (175.26 cm) (R); Pain 8/10; 14:48 Body Mass Index 32.49 (99.79 kg, 175.26 cm) ca1 ED Course: 14:29 Patient arrived in ED. ds1 14:52 Triage completed. ca1 14:52 Arm band placed on right wrist. ca1 15:09 Lupe Green, VIRGIE is Primary Nurse. ca1 15:11 Shay Ellington PA is PHCP. cp 15:11 Kaelyn Cortes MD is Attending Physician. cp 15:12 No provider procedures requiring assistance completed. ca1 15:30 Patient has correct armband on for positive identification. Bed in low position. Call ca1 light in reach. Side rails up X 1. Pulse ox on. NIBP on. 15:37 Ac Siegel DDS is Referral Physician. cp 16:03 Patient did not have IV access during this emergency room visit. ca1 Administered Medications: No medications were administered Outcome: 15:39 Discharge ordered by . tara 16:03 Discharged to home ambulatory, with family. ca1 16:03 Condition: stable 16:03 Discharge instructions given to patient, Instructed on discharge instructions, follow up and referral plans. medication usage, Demonstrated understanding of instructions, follow-up care, medications, Prescriptions given X 3. 16:03 Patient left the ED. ca1 Signatures: Alina Low ds1 Shay Ellington PA PA cp Acob, Cheryl RN RN ca1
--- NOTE | 2020-09-20 15:39 | EDPHYS ---
Physician Documentation [facility] Name: Peng Preciado Age: 40 yrs Sex: Female : 1980 Arrival Date: 09/20/2020 Time: 14:29 Bed 12 Private MD: ED Physician Kaelyn Cortes HPI: 09/20 15:20 This 40 yrs old Black Female presents to ER via Ambulatory with complaints of Jaw Pain, cp Abdominal Cramping. 15:20 The patient presents with broken tooth/teeth, pain. The problem is located in the left cp upper jaw. 15:20 Onset: The symptoms/episode began/occurred for past several months. Duration: The cp symptoms are intermittent. Modifying factors: the symptoms are aggravated by chewing. The patient presents with urinary symptoms, frequency. Patient reports she is waiting for appointment with maxillary facial surgeon to have left upper molar removed. Recently finished RX for antibiotics that helped with tooth pain, but pain returned over last several days. 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 Flu vaccine is not up to date. - Social history:: Smoking status: Patient denies any tobacco usage or history of. ROS: 15:25 Constitutional: Negative for body aches, chills, poor PO intake. cp 15:25 Eyes: Negative for injury, pain, redness, and discharge. cp 15:25 ENT: Positive for dental pain. 15:25 Cardiovascular: Negative for chest pain. 15:25 Respiratory: Negative for cough, shortness of breath, wheezing. 15:25 Abdomen/GI: Positive for nausea, Negative for vomiting, diarrhea, constipation. 15:25 : Positive for urinary symptoms. 15:25 Neuro: Negative for altered mental status, headache, weakness. 15:25 All other systems are negative. Exam: 15:30 Constitutional: The patient appears in no acute distress, alert, awake, non-toxic, well cp developed, well nourished. 15:30 Head/Face: Normocephalic, atraumatic. cp 15:30 Eyes: Periorbital structures: appear normal, Conjunctiva: normal, no exudate, no injection, Sclera: no appreciated abnormality, Lids and lashes: appear normal, bilaterally. 15:30 ENT: External ear(s): are unremarkable, Ear canal(s): are normal, clear, TM's: dullness, bilaterally, Nose: is normal, Mouth: Lips: moist, Oral mucosa: pink and intact, moist, Posterior pharynx: Airway: no evidence of obstruction, patent, Uvula: midline, swelling, is not appreciated, erythema, is not appreciated, exudate, that is mild, Dental exam: abscess, is not appreciated, dental caries, that is moderate, diffusely, pain, that is moderate, specifically in the upper left second molar (#15), Voice: is normal. 15:30 Neck: ROM/movement: Meningeal signs: are not present, nuchal rigidity, is not appreciated, Lymph nodes: no appreciated lymphadenopathy. 15:30 Chest/axilla: Inspection: normal. 15:30 Cardiovascular: Rate: normal. 15:30 Respiratory: the patient does not display signs of respiratory distress, Respirations: normal, no use of accessory muscles, no retractions. 15:30 Abdomen/GI: Exam negative for discomfort, distension, guarding, Inspection: abdomen appears normal. 15:30 Back: CVA tenderness, is absent. Vital Signs: 14:48 BP 128 / 99; Pulse 82; Resp 16; Temp 97.8(TE); Pulse Ox 97% on R/A; Weight 99.79 kg ca1 (R); Height 5 ft. 9 in. (175.26 cm) (R); Pain 8/10; 14:48 Body Mass Index 32.49 (99.79 kg, 175.26 cm) ca1 MDM: 15:16 Patient medically screened. cp 15:39 Data reviewed: vital signs, nurses notes, lab test result(s). cp 15:39 Differential diagnosis: dental caries, dental abscess, pericoronitis, urinary tract cp infection, vaginosis. Counseling: I had a detailed discussion with the patient and/or guardian regarding: the historical points, exam findings, and any diagnostic results supporting the discharge/admit diagnosis, lab results, the need for outpatient follow up, maxillary/facial surgery, to return to the emergency department if symptoms worsen or persist or if there are any questions or concerns that arise at home. Response to treatment: the patient's symptoms have mildly improved after treatment, and as a result, I will discharge patient. 09/20 15:27 Order name: Urine Culture md 09/20 15:27 Order name: Urine Microscopic Only md 09/20 15:12 Order name: Urine Dipstick-Ancillary (obtain specimen); Complete Time: 15:28 cp 09/20 15:28 Order name: Urine --Ancillary (enter results) md 09/20 15:28 Order name: Urine Culture EDNM 09/20 15:28 Order name: Urine Dipstick-Ancillary; Complete Time: 15:37 EDNM 09/20 15:37 Interpretation: Normal except: UESTR 1+. cp 09/20 15:12 Order name: Urine Test (obtain specimen); Complete Time: 15:28 cp Administered Medications: No medications were administered Disposition Summary: 09/20/20 15:39 Discharge Ordered Location: Home cp Problem: an ongoing problem cp Symptoms: have improved cp Condition: Stable cp Diagnosis - Disorder of teeth and supporting structures, unspecified cp - UTI/ Urinary tract infection, site not specified cp Followup: cp - With: Ac Siegel DDS - When: as scheduled - Reason: dental pain Discharge Instructions: - Discharge Summary Sheet cp - Dental Pain cp - Urinary Tract Infection, Adult cp Forms: - Medication Reconciliation Form cp - Thank You Letter cp - Antibiotic Education cp - Prescription Opioid Use cp Prescriptions: - Augmentin 875-125 mg Oral Tablet - take 1 tablet by ORAL route every 12 hours for 10 days; 20 tablet; Refills: 0, cp Product Selection Permitted - Pyridium 200 mg Oral Tablet - take 1 tablet by ORAL route every 8 hours for 3 days; 9 tablet; Refills: 0, cp Product Selection Permitted - Ibuprofen 800 mg Oral Tablet - take 1 tablet by ORAL route every 8 hours As needed take with food; 30 tablet; cp Refills: 0, Product Selection Permitted Signatures: Dispatcher [employer] EDNM Shay Ellington PA PA cp Acob, Cheryl RN RN ca1
[2020-09-20 16:10] VITALS: BP 128/99; TEMP 97.8; O2SAT 97
[2020-09-20 16:31] LABS: Urine Bacteria <20 /HPF (<20); Urine RBC <5 /HPF (NONE SEEN); Urine Trichomonas PRESENT (NONE SEEN)
== END 2020-09-20 16:03 | disposition home or self-care (01) ==
LOC: ER 14:28
DX: N39.0 Urinary tract infection, site not specified (principal); I10 Essential (primary) hypertension; Z88.1 Allergy status to other antibiotic agents
CPT/HCPCS: 81003; 81015; 81025; 87086; 87088; 99283

== ENCOUNTER 2020-12-04 19:44 | Emergency (ER) | payer SELFPAY ==
--- NOTE | 2020-12-04 21:01 | ER ---
Nurse's Notes [facility] Name: Peng Preciado Age: 40 yrs Sex: Female : 1980 Arrival Date: 12/04/2020 Time: 19:46 Bed 16 Private MD: Diagnosis: Dental root caries;Dysuria;UTI/ Urinary tract infection, site not specified Presentation: 12/04 19:52 Chief complaint: Patient states: Pt states she believes she had a UTI a couple weeks wg ago. States she was on her cycle and was bleeding, which stopped Friday and unsure if the symptoms of discomfort are related. Pt states she thinks she may have a UTI now. Pt states she has had intermittent headaches for 2 weeks. Pt reports having cysts. Pt states she has oral/teeth issues and infections. Pt seems very anxious in triage and verbally all over the place with her symptoms and conversation. Pt denies SOB, CP, N/V/D, fevers and cough. Coronavirus screen: Vaccine status: Patient reports being unvaccinated. Ebola Screen: Patient negative for fever greater than or equal to 101.5 degrees Fahrenheit, and additional compatible Ebola Virus Disease symptoms Patient denies exposure to infectious person. Patient denies travel to an Ebola-affected area in the 21 days before illness onset. No symptoms or risks identified at this time. Initial Sepsis Screen: Does the patient meet any 2 criteria? No. Patient's initial sepsis screen is negative. Does the patient have a suspected source of infection? No. Patient's initial sepsis screen is negative. Risk Assessment: Do you want to hurt yourself or someone else? Patient reports no desire to harm self or others. Onset of symptoms was November 22, 2020. 19:52 Method Of Arrival: Ambulatory 20:01 Acuity: SIMONE 3 Triage Assessment: 19:58 Headache History: The patient has had previous headaches and this one is similar to previous episodes. General: Appears uncomfortable, obese, well developed, Behavior is anxious. Pain: Complains of pain in Urinary/bladder and headache Pain currently is 5 out of 10 on a pain scale. Pain began 2 weeks Also complains of. Neuro: No deficits noted. 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 - Social history:: Smoking status: Patient denies any tobacco usage or history of. - Family history:: not pertinent. Assessment: 21:29 Reassessment: Patient alert and oriented, no acute signs of distress, respirations even lh3 and unlabored, skin warm and dry. patient took medications whole. Vital Signs: 19:52 BP 128 / 76; Pulse 74; Resp 18; Temp 98.4; Pulse Ox 100% on R/A; Weight 99.79 kg; wg Height 5 ft. 8 in. (172.72 cm); Pain 5/10; 19:52 Body Mass Index 33.45 (99.79 kg, 172.72 cm) wg Matt Coma Score: 20:57 Eye Response: spontaneous(4). Verbal Response: oriented(5). Motor Response: obeys guille commands(6). Total: 15. ED Course: 19:46 Patient arrived in ED. 19:57 Triage completed. wg 19:58 Arm band placed on right wrist. wg 20:06 Shay Saldaña MD is Attending Physician. guille 20:29 Carmella Ruth, VIRGIE is Primary Nurse. bs2 21:01 Ac Siegel DDS is Referral Physician. [facility] 21:29 Report received from [facility] care from VIRGIE Weir at this time. lh3 21:29 Patient has correct armband on for positive identification. lh3 21:29 No provider procedures requiring assistance completed. lh3 Administered Medications: 21:29 Drug: Augmentin (Amoxicillin-Clavulanate) 875 mg Route: PO; 3 Outcome: 21:01 Discharge ordered by . guille 21:29 Discharged to home ambulatory. lh3 21:29 Condition: good 21:29 Discharge instructions given to patient, Instructed on discharge instructions, medication usage, Demonstrated understanding of instructions. 21:31 Patient left the ED. lh3 Signatures: Shay Saldaña MD MD cha Marsh, Wendy Carmella Ruth, VIRGIE RN bs2 Mary Mills RN RN lh3 Josue Young RN wg Corrections: (The following items were deleted from the chart) 20:01 19:52 Acuity: SIMONE 4 wg wg
--- NOTE | 2020-12-04 21:02 | EDPHYS ---
Physician Documentation [facility] Name: Peng Preciado Age: 40 yrs Sex: Female : 1980 Arrival Date: 12/04/2020 Time: 19:46 Bed 16 Private MD: ED Physician Shay Saldaña HPI: 12/04 20:50 This 40 yrs old Black Female presents to ER via Ambulatory with complaints of Headache, guille Abdominal Pain. 20:50 The patient complains of pain to the forehead. The patient describes the headache as guille aching. 20:52 Onset: The symptoms/episode began/occurred 2 day(s) ago. The patient presents with guille abdominal pain in the lower abdomen. Onset: The symptoms/episode began/occurred 2 day(s) ago. Associated signs and symptoms: Pertinent positives: dizziness. Severity of symptoms: At its worst the pain was mild, in the emergency department the pain is unchanged, pain is in the lower mandible, no trismus. Headache History: The patient has had previous headaches and this one is similar to previous episodes. 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 - Social history:: Smoking status: Patient denies any tobacco usage or history of. - Family history:: not pertinent. ROS: 20:52 Constitutional: Negative for fever, chills, and weight loss, Eyes: Negative for injury, guille pain, redness, and discharge, ENT: Negative for injury, pain, and discharge, Neck: Negative for injury, pain, and swelling, Cardiovascular: Negative for chest pain, palpitations, and edema, Respiratory: Negative for shortness of breath, cough, wheezing, and pleuritic chest pain, Abdomen/GI: Negative for abdominal pain, nausea, vomiting, diarrhea, and constipation, Back: Negative for injury and pain, MS/Extremity: Negative for injury and deformity, Skin: Negative for injury, rash, and discoloration, Neuro: Negative for headache, weakness, numbness, tingling, and seizure, Psych: Negative for depression, anxiety, suicide ideation, homicidal ideation, and hallucinations, Allergy/Immunology: Negative for hives, rash, and allergies, Endocrine: Negative for neck swelling, polydipsia, polyuria, polyphagia, and marked weight changes, Hematologic/Lymphatic: Negative for swollen nodes, abnormal bleeding, and unusual bruising. 20:52 : Positive for urinary symptoms, urinary frequency, hematuria, burning with urination. Exam: 20:52 Constitutional: This is a well developed, well nourished patient who is awake, alert, guille and in no acute distress. Head/Face: Normocephalic, atraumatic. Eyes: Pupils equal round and reactive to light, extra-ocular motions intact. Lids and lashes normal. Conjunctiva and sclera are non-icteric and not injected. Cornea within normal limits. Periorbital areas with no swelling, redness, or edema. ENT: Nares patent. No nasal discharge, no septal abnormalities noted. Tympanic membranes are normal and external auditory canals are clear. Oropharynx with no redness, swelling, or masses, exudates, or evidence of obstruction, uvula midline. Mucous membranes moist. Neck: Trachea midline, no thyromegaly or masses palpated, and no cervical lymphadenopathy. Supple, full range of motion without nuchal rigidity, or vertebral point tenderness. No Meningismus. Chest/axilla: Normal chest wall appearance and motion. Nontender with no deformity. No lesions are appreciated. Cardiovascular: Regular rate and rhythm with a normal S1 and S2. No gallops, murmurs, or rubs. Normal PMI, no JVD. No pulse deficits. Respiratory: Lungs have equal breath sounds bilaterally, clear to auscultation and percussion. No rales, rhonchi or wheezes noted. No increased work of breathing, no retractions or nasal flaring. Abdomen/GI: Soft, non-tender, with normal bowel sounds. No distension or tympany. No guarding or rebound. No evidence of tenderness throughout. Back: No spinal tenderness. No costovertebral tenderness. Full range of motion. Skin: Warm, dry with normal turgor. Normal color with no rashes, no lesions, and no evidence of cellulitis. MS/ Extremity: Pulses equal, no cyanosis. Neurovascular intact. Full, normal range of motion. Neuro: Awake and alert, GCS 15, oriented to person, place, time, and situation. Cranial nerves II-XII grossly intact. Motor strength 5/5 in all extremities. Sensory grossly intact. Cerebellar exam normal. Normal gait. Psych: Awake, alert, with orientation to person, place and time. Behavior, mood, and affect are within normal limits. 21:20 ECG was reviewed by the Attending Physician. [facility] Vital Signs: 19:52 BP 128 / 76; Pulse 74; Resp 18; Temp 98.4; Pulse Ox 100% on R/A; Weight 99.79 kg; wg Height 5 ft. 8 in. (172.72 cm); Pain 5/10; 19:52 Body Mass Index 33.45 (99.79 kg, 172.72 cm) [place] Coma Score: 20:57 Eye Response: spontaneous(4). Verbal Response: oriented(5). Motor Response: obeys [facility] commands(6). Total: 15. MDM: 20:06 Patient medically screened. [facility] 20:57 Differential diagnosis: migraine, tension headache. Data reviewed: vital signs, nurses [facility] notes, lab test result(s), urinalysis, bacteruria. Data interpreted: raise miner: rate is 74 beats/min, rhythm is regular, Pulse oximetry: on room air is 100 %. Counseling: I had a detailed discussion with the patient and/or guardian regarding: the historical points, exam findings, and any diagnostic results supporting the discharge/admit diagnosis, lab results, radiology results, the need for outpatient follow up, for definitive care, an oral maxilofacial specialist. 12/04 20:58 Order name: Urine --Ancillary (enter results) tt3 12/04 20:01 Order name: Urine Dipstick-Ancillary (obtain specimen); Complete Time: 20:49 12/04 20:30 Order name: Urine Test (obtain specimen) [facility] 12/04 20:30 Order name: EKG; Complete Time: 20:31 [facility] 12/04 20:30 Order name: EKG - Nurse/Tech [facility] EC:20 Rate is 78 beats/min. Rhythm is regular. QRS [place] is Normal. CO interval is normal. QRS guille interval is normal. QT interval is normal. No Q waves. T waves are Normal. No ST changes noted. Clinical impression: Normal ECG and No evidence of ischemia. Interpreted by me. Reviewed by me. Administered Medications: 21:29 Drug: Augmentin (Amoxicillin-Clavulanate) 875 mg Route: PO; lh3 Disposition Summary: 12/04/20 21:01 Discharge Ordered Location: Home [facility] Problem: new guille Symptoms: have improved guille Condition: Stable guille Diagnosis - Dental root caries guille - Dysuria guille - UTI/ Urinary tract infection, site not specified guille Followup: guille - With: Private Physician - When: 2 - 3 days - Reason: Recheck today's complaints, Continuance of care, Re-evaluation by your physician Followup: guille - With: Ac Siegel DDS - When: 2 - 3 days - Reason: Recheck today's complaints, Re-evaluation by your physician Discharge Instructions: - Discharge Summary Sheet guille - Dental Caries, Adult guille - Dental Pain guille - Dysuria guille - Urinary Tract Infection, Adult guille - Urinary Tract Infection, Adult, [id number] guille - Diet and Dental Disease guille - Dental Caries, Adult, [id number] guille Forms: - Medication Reconciliation Form [facility] - Thank You Letter guille - Antibiotic Education guille - Prescription Opioid Use [facility] Prescriptions: - Augmentin 875-125 mg Oral Tablet - take 1 tablet by ORAL route every 12 hours for 7 days; 14 tablet; Refills: 0, guille Product Selection Permitted Signatures: Dispatcher [employer] Shay Griggs MD MD cha Hardee, Latisha, RN RN [facility] Josue Young RN
[2020-12-04] MEDS ORDERED: AMOX/K CLAV 875 MG TAB ONE (21:20)
[2020-12-04 21:37] VITALS: BP 128/76; TEMP 98.4; O2SAT 100
[2020-12-04 22:29] LABS: Urine Blood Negative (Negative); Urine Glucose Negative (Negative); Urine Protein Trace (Negative); Urine Specific Gravity 1.025 (1.005-1.030); Urine pH 6.5 (5.0-7.0)
[2020-12-05 01:54] LABS: Urine Specific Gravity/Preg 1.025 (1.005-1.030)
--- NOTE | 2020-12-05 18:09 | EKG ---
Test Date: 2020-12-04 Test Time: 21:09:15 Naval [employer] Specialist: YVONNE MEASUREMENT RESULTS: Intervals: Rate: 78 CO: 150 QRSD: 64 QT: 344 QTc: 392 [place]: P: 54 CO: 150 QRS: 24 T: 31 INTERPRETIVE STATEMENTS: Normal sinus rhythm Septal infarct, age undetermined Abnormal ECG Compared to ECG 07/29/2019 22:32:57 No significant changes Electronically Signed On 12-05-20 18:05:52 CDT by Gregor Moe
== END 2020-12-04 21:31 | disposition home or self-care (01) ==
LOC: ER 19:44
DX: N39.0 Urinary tract infection, site not specified (principal); K02.7 Dental root caries; I10 Essential (primary) hypertension
CPT/HCPCS: 81003; 81025; 93005; 99283